=== PATIENT | male | born 1945 ===

== ENCOUNTER 2020-03-07 13:11 | Outpatient (REF) | payer MEDICARE, SELFPAY ==
[2020-03-07 14:15] LABS: MANUAL DIFF FLAG NO
[2020-03-07 14:17] LABS: Basophils Absolute Auto 0.1 X10*3/uL (0.0-0.2); Basophils Percent Auto 0.7 % (0-2); Eosinophils Absolute Auto 0.1 X10*3/uL (0.0-0.4); Eosinophils Percent Auto 0.7 % (0-4); Hematocrit 44.9 % (42-52); Hemoglobin 14.1 g/dl (14.0-18.0); Imm Gran Abs Auto 0.41 X10*3/uL (0.00-0.03); Imm Gran Pct Auto 3.4 % (0.0-0.4); Lymphocytes Absolute Auto 2.3 X10*3/uL (1.2-4.9); Lymphocytes Percent Auto 18.6 % (20-40); Mean Corpuscular HGB Conc 31.4 g/dl (31.0-36.0); Mean Corpuscular Hemoglobin 32.7 pg (27.0-33.0); Mean Corpuscular Volume 104.2 fL (80-98); Monocytes Absolute Auto 1.1 X10*3/uL (0.1-1.2); Monocytes Percent Auto 9.1 % (2-11); Neutrophils Absolute Auto 8.2 X10*3/uL (2.0-8.3); Neutrophils Percent Auto 67.5 % (45-73); Platelet Count 308 X10*3/uL (160-400); Red Blood Count 4.31 X10*6/uL (4.60-5.80); Red Cell Distribution Width 13.4 % (11.0-16.0); White Blood Count 12.2 X10*3/uL (4.8-10.8)
[2020-03-07 15:08] LABS: Thyroid Stimulating Hormone 6.11 mIU/mL (0.32-4.0)
== END 2020-03-07 13:12 | disposition home or self-care (01) ==
LOC: HO.HSH3N 13:11
PROVIDERS: Visit Provider Internal Medicine
DX: D64.9 Anemia, unspecified (principal); I49.9 Cardiac arrhythmia, unspecified
CPT/HCPCS: 36415; 84443; 85025

== ENCOUNTER 2020-05-03 14:52 | Emergency (ER) | payer MEDICARE, SELFPAY ==
[2020-05-03 14:59] VITALS: BP 129/74; PULSE 80; RESP 18; TEMP 37.8; O2SAT 98; BMI 16.7
--- NOTE | 2020-05-03 15:31 | CT_ITS ---
EXAMINATION: CT ABDOMEN AND PELVIS WITHOUT CONTRAST CLINICAL INFORMATION: Abdominal distention. Vomiting. COMPARISON: 02/06/2020 TECHNIQUE: Multidetector volumetric imaging was performed from the superior aspect of the liver through the pubic symphysis. Sagittal and coronal reformatted images were obtained on the technologist's workstation. This CT examination was performed using dose optimization techniques as appropriate, variously including the following: *Automated exposure control *Adjustment of mA and/or kV according to patient size (this includes techniques or standardized protocols for targeted exams where dose is matched to indication/reason for exam; i.e. extremities or head) *Use of iterative reconstruction technique DLP: 515 mGy-cm FINDINGS: LUNG BASES: Bibasilar atelectasis. The visualized cardiac structures are unremarkable. LIVER, GALLBLADDER, AND BILIARY TREE: The liver is normal in size, shape, and attenuation. No focal hepatic lesion or biliary ductal dilatation is present. Multiple stones are seen layering in the gallbladder lumen. No wall thickening or pericholecystic fluid. PANCREAS: Unremarkable. SPLEEN: Unremarkable. ADRENAL GLANDS: Unremarkable. KIDNEYS AND URETERS: The kidneys are normal in size, shape, and attenuation. No hydronephrosis or hydroureter. No right-sided calculi. There are multiple left renal calculi identified. The largest measures 0.3 cm at the upper pole, 6 cm from the posterior axillary line. There are an additional upper pole calculus and a separate midpole calculus noted. BLADDER: Partially distended. Small calcifications are seen dependently which may represent small calculi. Mild bladder wall thickening. GASTROINTESTINAL TRACT: The stomach is displaced posteriorly. This is distended with gas and fluid. No wall thickening. The small bowel is severely dilated in the midabdomen. The duodenum and proximal jejunum are decompressed with gradual dilatation beginning. The terminal ileum is also decompressed, with transition to decompressed small bowel seen in the right lower quadrant. This is similar to the prior study. Mild wall thickening of the distal small bowel noted. The colon is similar to prior with scattered gas and stool internally. Normal appendix. No free air. No free fluid. ABDOMINAL WALL: No significant hernia is appreciated. LYMPH NODES: Normal. VASCULAR: Normal caliber aorta with moderate atherosclerotic calcification. PELVIC VISCERA: The prostate and seminal vesicles are unremarkable. OSSEOUS STRUCTURES: No acute or suspicious osseous abnormality. The bones are osteopenic. Degenerative changes throughout the spine. Degenerative changes of both hips. 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 CT/CT abdomen pelvis wo con IMPRESSION: Similar appearance to prior with marked distention of a portion of the mid small bowel. There is transition to decompressed small bowel near the distal ileum. The appearance remains consistent with underlying Crohn's disease. Nonobstructing left renal calculi are noted. Cholelithiasis.
[2020-05-03 16:00] LABS: Basophils Percent Auto 0.3 % (0-2); Eosinophils Percent Auto 0.2 % (0-4); Hematocrit 38.2 % (42-52); Hemoglobin 12.3 g/dl (14.0-18.0); Imm Gran Abs Auto 0.23 X10*3/uL (0.00-0.03); Imm Gran Pct Auto 3.5 % (0.0-0.4); Lymphocytes Absolute Auto 0.5 X10*3/uL (1.2-4.9); Lymphocytes Percent Auto 7.4 % (20-40); MANUAL DIFF FLAG NO; Mean Corpuscular HGB Conc 32.2 g/dl (31.0-36.0); Mean Corpuscular Hemoglobin 32.2 pg (27.0-33.0); Mean Platelet Volume 8.6 fL (9.4-12.4); Monocytes Absolute Auto 0.3 X10*3/uL (0.1-1.2); Monocytes Percent Auto 4.4 % (2-11); Neutrophils Absolute Auto 5.6 X10*3/uL (2.0-8.3); Neutrophils Percent Auto 84.2 % (45-73); Platelet Count 267 X10*3/uL (160-400); Red Blood Count 3.82 X10*6/uL (4.60-5.80); Red Cell Distribution Width 13.5 % (11.0-16.0); SCAN SMEAR FLAG 1; White Blood Count 6.7 X10*3/uL (4.8-10.8)
--- NOTE | 2020-05-03 16:25 | ED_ITS ---
HPI - Abdominal Pain General Chief Complaint: Abdominal Pain Stated Complaint: abd distention, ?constipation Time Seen by Provider: 05/03/20 15:17 Source: EMS Mode of arrival: EMS History of Present Illness HPI narrative: 74-year-old male with a past medical history of cognitive impairment, mental illness, dementia, Crohn's disease, anxiety/depression BIBA from [facility] for noted abdominal distension & intermittent vomiting, with concern for dehydration or bowel obstruction. Recently COVID-19 negative. Patient reports abdominal pain History limited due to cognitive impairment/dementia MD elicited complaint: abdominal pain Related Data Allergies Allergy/AdvReac Type Severity Reaction Status Date / Time sertraline [Zoloft] Allergy Unknown Verified 11/30/19 00:00 lactose [Lactose] AdvReac Intermediate DIARRHEA Unverified 02/16/20 17:16 From Zoloft AdvReac Intermediate SEVERE Uncoded 02/16/20 17:16 DIARRHEA Review of Systems Review of Systems Gastrointestinal: + Vomiting, +Abdominal pain History limited due to cognitive impairment/dementia Yes all other systems are reviewed and are negative Physical Exam Vital Signs: Vital Signs: Last Vital Signs Temp 100.0 F 05/03/20 14:59 Pulse 80 05/03/20 14:59 Resp 18 05/03/20 14:59 BP 129/74 05/03/20 14:59 Pulse Ox 98 05/03/20 14:59 Body Mass Index 16.7 Const: General: cooperative and healthy appearing Limitations: no limitations HENMT: Head: Yes normal to inspection Ears: hearing grossly normal bilaterally General nose exam: Normal external nose present Face and sinus: Yes normal facial exam Eyes: General: appearance normal, both eyes and all related structures EOM: EOMs intact bilaterally Neck: Neck: Yes normal visual inspection Resp: Effort & Inspection: normal respiratory effort Auscultation: clear to auscultation bilaterally and no wheezes Cardio: Rate: regular rate Heart sounds: S1 normal heart sound present and S2 normal heart sound present GI: Other: + distended Inspection: Yes normal to inspection Palpation (GI): Soft to palpation, Tenderness to palpation present (GI) (Diffusely), no guarding and not rigid Skin: Rashes: no rashes Wounds: no wounds Extrem: General: Yes normal to inspection Course Course Course Narrative: -1635--no leukocytosis, H&H at baseline, potassium/magnesium slightly low --1700--ED care transfer to [facility] pending bladder scan, UA, & CT AP. Dispo per results MDM - Abdominal Pain MDM Narrative Medical decision making narrative: 74-year-old male with a past medical history of cognitive impairment, mental illness, dementia, Crohn's disease, anxiety/depression BIBA from [facility] for noted abdominal distension & intermittent vomiting, with concern for dehydration or bowel obstruction. On exam low-grade temp of a 100?, NAD, abdomen distended diffusely tender, no rebound or guarding. Concern for SBO/constipation vs infectious etiology. Low concern for severe sepsis. Rule out metabolic abnormalities Plan: Labs, UA, CT AP, bladder scan, reassess Lab Data Result diagrams: 05/03/20 15:53 05/03/20 15:52 Labs: Lab Results 05/03/20 05/03/20 05/03/20 Range/Units 15:52 15:53 15:53 WBC 6.7 (4.8-10.8) X10*3/uL RBC 3.82 L (4.60-5.80) X10*6/uL Hgb 12.3 L (14.0-18.0) g/dl Hct 38.2 L (42-52) % MCV 100.0 H (80-98) fL MCH 32.2 (27.0-33.0) pg MCHC 32.2 (31.0-36.0) g/dl RDW 13.5 (11.0-16.0) % Plt Count 267 (160-400) X10*3/uL MPV 8.6 L (9.4-12.4) fL Immature Gran % (Auto) 3.5 H (0.0-0.4) % Neut % (Auto) 84.2 H (45-73) % Lymph % (Auto) 7.4 L (20-40) % [place] % (Auto) 4.4 (2-11) % Eos % (Auto) 0.2 (0-4) % Baso % (Auto) 0.3 (0-2) % Lymph # (Auto) 0.5 L (1.2-4.9) X10*3/uL [place] # (Auto) 0.3 (0.1-1.2) X10*3/uL Eos # (Auto) 0.0 (0.0-0.4) X10*3/uL Baso # (Auto) 0.0 (0.0-0.2) X10*3/uL Abs Immat Gran (auto) 0.23 H (0.00-0.03) X10*3/uL Absolute Neuts (auto) 5.6 (2.0-8.3) X10*3/uL Absolute Nucleated RBC 0.000 (0.0-0.012) X10*3/uL Nucleated RBC % (auto) 0.0 (0.0-0.2) /100WBC Hold Blue Top SEE NOTE Sodium 143 (135-145) mmol/L Potassium 3.2 L (3.3-5.1) mmol/l Chloride 100 (96-108) mmol/L Carbon Dioxide 32 H (22-29) mmol/L Anion Gap 14 (12-20) BUN 15 (9-16) mg/dL Creatinine 0.78 (0.5-1.4) mg/dL Estim Creat Clear Calc 66.8 Estimated GFR > 60 Random Glucose 206 H (60-115) mg/dL Calcium 8.4 (8.4-10.2) mg/dL Magnesium 1.5 L (1.6-2.6) mg/dL Total Bilirubin 0.4 (0.0-1.0) mg/dL Direct Bilirubin < 0.2 (0.0-0.5) mg/dL AST 16 (5-37) U/L ALT 10 (0-40) U/L Alkaline Phosphatase 39 (39-117) U/L Total Protein 5.7 L (6.5-8.0) g/dL Albumin 3.7 (3.5-5.0) g/dL Lipase 20 (8-78) U/L [facility] Past Medical History Attestation statement: The following information was validated with the patient. Medical History (Updated 05/03/20 @ 15:02 by Zahra Hall) Anxiety Crohn disease Dementia MDD (major depressive disorder) Osteoarthritis Social History Social History Alcohol intake: never Smoked in Last 30 Days: No Use of substances other than those prescribed or required for medical reasons: No Advance Directives: No Advance Directives Information Provided: No
[2020-05-03 16:28] LABS: Alanine Aminotransferase 10 U/L (0-40); Albumin Level 3.7 g/dL (3.5-5.0); Alkaline Phosphatase 39 U/L (39-117); Anion Gap 14 (12-20); Aspartate Amino Transferase 16 U/L (5-37); Bilirubin Direct < 0.2 mg/dL (0.0-0.5); Bilirubin Total 0.4 mg/dL (0.0-1.0); Blood Urea Nitrogen 15 mg/dL (9-16); Calcium 8.4 mg/dL (8.4-10.2); Carbon Dioxide 32 mmol/L (22-29); Chloride 100 mmol/L (96-108); Creatinine Clr Calc Pharmacy 66.8; Estimated Glomerular Filt Rate > 60; Glucose Random 206 mg/dL (60-115); Lipase 20 U/L (8-78); Magnesium 1.5 mg/dL (1.6-2.6); Potassium 3.2 mmol/l (3.3-5.1); Sodium 143 mmol/L (135-145); Total Protein 5.7 g/dL (6.5-8.0)
[2020-05-03] MEDS: Acetaminophen 325 MG TABLET 650 MG PO (16:58)
[2020-05-03] MEDS: 0.9 % Sodium Chloride 1,000 ML 999 ML IVCONT (16:58)
[2020-05-03 17:11] LABS: Glucose Urine UA 250 MG/DL (NEG); Leukocyte Esterase Urine NEG (NEG); Nitrite Urine NEG (NEG); Urine Blood NEG (NEG); Urine Ketones NEG (NEG); Urine Protein NEG (NEG-TRACE)
[2020-05-03 17:14] LABS: Appearance Urine CLEAR; Color Urine YELLOW
[2020-05-03 18:00] VITALS: BP 122/77; PULSE 95; RESP 18; O2SAT 98
[2020-05-03 19:07] VITALS: BP 143/85; PULSE 82; RESP 18; O2SAT 98
[2020-05-03] MEDS: Simethicone 80 MG TAB.CHEW 160 MG PO (20:16)
--- NOTE | 2020-05-03 20:19 | MHC.PIE ---
Tried to call [facility] for report x 3. IV access removed. pt resting in ED strecher with even, unlabored respirations awaiting EMS ride
[2020-05-03 21:17] VITALS: BP 143/96; O2SAT 98
== END 2020-05-03 21:20 ==
PROVIDERS: Physician Assistant; Emergency Provider Internal Medicine
DX: K50.00 Crohn's disease of small intestine without complications (principal); F03.90 Unspecified dementia, unspecified severity, without behavioral disturbance, psychotic disturbance, mood disturbance, and anxiety; F32.9 Major depressive disorder, single episode, unspecified
CPT/HCPCS: 36415; 51798; 74176; 80048; 80076; 81003; 83690; 83735; 84443; 85025; 96360; 99284

== ENCOUNTER → 2020-05-15 08:50 | Outpatient (BNVA) | payer MEDICARE, SELFPAY | PROVIDERS: PCP Internal Medicine Medical Oncology; Referring Provider Internal Medicine Medical Oncology; Visit Provider Nurse Practitioner | DX: Z13.89 Encounter for screening for other disorder (principal) | CPT/HCPCS: Q3014 ==

== ENCOUNTER 2020-05-16 07:59 | Outpatient (REF) | payer MEDICARE, SELFPAY ==
[2020-05-16 10:01] LABS: C Reactive Protein 0.11 mg/dL (< or = 0.50)
[2020-05-24 00:47] LABS: Calprotectin, Fecal 129 mcg/g
== END 2020-05-16 08:00 | disposition home or self-care (01) ==
LOC: HO.HSH3E 07:59
PROVIDERS: Visit Provider Internal Medicine Medical Oncology
DX: K50.90 Crohn's disease, unspecified, without complications (principal)
CPT/HCPCS: 83993; 86140

== ENCOUNTER → 2020-05-22 08:41 | Outpatient (BNVA) | payer MEDICARE, SELFPAY | PROVIDERS: PCP Internal Medicine Medical Oncology; Visit Provider Nurse Practitioner | DX: Z13.89 Encounter for screening for other disorder (principal) | CPT/HCPCS: 99212 ==

== ENCOUNTER → 2020-05-31 10:33 | Outpatient (BNVA) | payer MEDICARE, SELFPAY | PROVIDERS: PCP Internal Medicine Medical Oncology; Visit Provider Nurse Practitioner | DX: K50.90 Crohn's disease, unspecified, without complications (principal) | CPT/HCPCS: Q3014 ==

== ENCOUNTER 2020-06-04 07:34 | Outpatient (REF) | payer MEDICARE, SELFPAY | END 2020-06-04 07:35 | disposition home or self-care (01) | LOC: HO.HSH3E 07:34 | PROVIDERS: Visit Provider Internal Medicine Medical Oncology | DX: K50.90 Crohn's disease, unspecified, without complications (principal) | CPT/HCPCS: 36415; 81335 ==

== ENCOUNTER → 2020-06-25 14:32 | Outpatient (BNVA) | payer MEDICARE, SELFPAY | PROVIDERS: PCP Internal Medicine Medical Oncology; Visit Provider Nurse Practitioner | DX: K50.90 Crohn's disease, unspecified, without complications (principal); R14.0 Abdominal distension (gaseous) | CPT/HCPCS: Q3014 ==

== ENCOUNTER 2020-09-10 06:11 | Outpatient (REF) | payer MEDICARE, SELFPAY ==
[2020-09-10 08:39] LABS: Hemoglobin 12.2 g/dl (14.0-18.0); Mean Corpuscular HGB Conc 32.1 g/dl (31.0-36.0); Mean Corpuscular Hemoglobin 33.3 pg (27.0-33.0); Mean Corpuscular Volume 103.8 fL (80-98); Mean Platelet Volume 9.3 fL (9.4-12.4); Platelet Count 203 X10*3/uL (160-400); Red Blood Count 3.66 X10*6/uL (4.60-5.80); Red Cell Distribution Width 13.8 % (11.0-16.0)
[2020-09-10 09:05] LABS: Band Neutrophils Percent 3 % (3-5); Lymphocytes Absolute Manual 1.7 X10*3/uL (0.6-4.8); Lymphocytes Percent Manual 19 % (20-40); Metamyelocytes Absolute 0.2 X10*3/uL; Metamyelocytes Percent 2 %; Monocytes Absolute Manual 0.3 X10*3/uL (0.0-1.2); Monocytes Percent Manual 3 % (2-11); Myelocytes Absolute 0.2 X10*/uL; Myelocytes Percent 2 %; Neutrophils Absolute Manual 6.7 X10*3/uL (2.2-7.9); Neutrophils Percent Manual 71 % (45-73)
[2020-09-10 09:06] LABS: Acanthocytes 1+ (0-2) /OIF; Macrocytosis 1+ (5-14) /OIF; RBC Morphology NOTED
[2020-09-10 09:07] LABS: Platelet Estimate NORMAL (NORMAL); Platelet Morphology Comment NORMAL
[2020-09-10 09:12] LABS: Thyroid Stimulating Hormone 5.58 uIU/mL (0.32-4.0)
== END 2020-09-10 06:12 | disposition home or self-care (01) ==
LOC: HO.HSH2E 06:11
PROVIDERS: Visit Provider Internal Medicine Endocrinology, Diabetes & Metabolism
DX: K50.00 Crohn's disease of small intestine without complications (principal)
CPT/HCPCS: 36415; 84443; 85007; 85027

== ENCOUNTER 2020-10-07 10:01 | Emergency (ER) | payer OTHER, MEDICARE, SELFPAY ==
--- NOTE | ~2020-10-07 | CT_ITS ---
EXAMINATION: CT ABDOMEN AND PELVIS WITH CONTRAST CLINICAL INFORMATION: Constipation. Question bowel obstruction. COMPARISON: CT of the abdomen and pelvis without contrast dated May 03, 2020 and 02/06/2020. TECHNIQUE: Multidetector volumetric images were obtained from the superior aspect of the liver through the pubic symphysis following administration 85 mL of Omnipaque 350 intravenous contrast. Sagittal and coronal reformatted images were obtained on the technologist's workstation. Oral contrast: No This CT examination was performed using dose optimization techniques as appropriate, variously including the following: *Automated exposure control *Adjustment of mA and/or kV according to patient size (this includes techniques or standardized protocols for targeted exams where dose is matched to indication/reason for exam; i.e. extremities or head) *Use of iterative reconstruction technique DLP: 434 mGy-cm FINDINGS: LUNG BASES: The visualized lung bases are unremarkable. The heart normal in size. No pericardial effusion or thickening. LIVER, GALLBLADDER, AND BILIARY TREE: The liver is normal in size, shape, and attenuation. No focal hepatic lesion or biliary ductal dilatation is present. The gallbladder contains multiple small gallstones. No gallbladder wall thickening, or obvious pericholecystic inflammatory changes. PANCREAS: Normal. SPLEEN: Normal. ADRENAL GLANDS: Normal. KIDNEYS AND URETERS: The kidneys are normal in size, shape, and attenuation. No hydronephrosis or hydroureter. Nonobstructive left upper pole renal calculi. No perinephric stranding. BLADDER: Partially decompressed. Wall thickening of the urinary bladder reflecting partially decompressed status versus cystitis. Clinical correlation recommended. Punctate calculus in the dependently layers in the left posterior urinary bladder (3:86). GASTROINTESTINAL TRACT: Stomach is nondistended with mild posterior displacement similar to prior examination. Decompressed left upper abdomen small bowel loops and decompressed terminal ileum is noted. Appendix is visualized (3:68) and normal in appearance. There is similar appearance and degree of diffuse small bowel dilatation. The rectum is normal in caliber. Sigmoid, left, transverse, and right colon are normal in caliber. No evidence of bowel pneumatosis. PERITONEUM/RETROPERITONEUM AND MESENTERY: No intraperitoneal free air or fluid. ABDOMINAL WALL: No significant hernia is appreciated. LYMPH NODES: No pathologically enlarged lymph nodes. VASCULAR: Mild to moderate aortoiliac atherosclerotic calcified and noncalcified disease. PELVIC VISCERA: Prostate seminal vesicles are normal in caliber. OSSEOUS STRUCTURES: Osteopenia. Bilateral hip AVN. No acute fracture. Degenerative changes of the thoracolumbar spine are unchanged. CT/CT abdomen pelvis w con IMPRESSION: There is unchanged appearance and degree of diffusely distended small bowel which transitions to decompressed small bowel near the distal ileum similar to prior comparison examinations. Stomach and large bowel are normal in caliber. No evidence evidence of small or large bowel pneumatosis. No intraperitoneal free air or free fluid. Normal appendix. Wall thickening of the urinary bladder reflect sequelae of partially decompressed status versus cystitis. Clinical correlation recommended. Tiny calculus in the urinary bladder. Osteopenia. Bilateral avascular necrosis of the hips.
[2020-10-07 10:09] VITALS: BP 127/74; BP 163/81; PULSE 85; PULSE 97; RESP 16; TEMP 36.9; O2SAT 98; BMI 22.9
--- NOTE | 2020-10-07 10:37 | PC.NURSE ---
Pt presents from [facility] for abd distention and no bowel movement x 24 hours. Pt able to answer simple questions. Denies pain. Abd is distened and skin taught, Hyperactive bowel sounds right upper and lower and right lower, diminished to ll abd quad.
--- NOTE | 2020-10-07 10:52 | ED_ITS ---
HPI - Abdominal Pain General Chief Complaint: Abdominal Pain Stated Complaint: Abdominal Distention Time Seen by Provider: 10/07/20 10:31 Source: patient Mode of arrival: ambulatory Limitations: no limitations History of Present Illness HPI narrative: Patient is sent from [facility] due to constipation for 24 hours. Phyllis vicente usually has 3 bowel movements per day, but did not have any for the past 24 hours and increase abdominal distention. Patient presents not any distress. Patient has dementia but states constipated. He also states abdominal distension. Patient denies any abdominal pain Related Data Home Medications Medication Instructions Recorded Confirmed metoclopramide HCl 10 mg tablet 10 mg PO .TIDAC tab 05/22/20 05/22/20 Previous Rx's Medication Instructions Recorded polyethylene glycol 3350 [Miralax] 17 g PO DAILY PRN #238 g 10/07/20 Allergies Allergy/AdvReac Type Severity Reaction Status Date / Time sertraline [Zoloft] Allergy Unknown Unknown Verified 06/25/20 14:32 lactose [Lactose] AdvReac Intermediate DIARRHEA Verified 06/25/20 14:32 Review of Systems Review of Systems Yes all other systems are reviewed and are negative Constitutional: Reports as per HPI and Reports no additional constitutional complaints Eyes: Reports as per HPI and Reports no additional eye complaints Reports system reviewed and no additional complaints, except as documented and Reports as per HPI Cardiovascular: Reports as per HPI and Reports no additional cardiovascular complaints Respiratory: Reports as per HPI and Reports no additional respiratory complaints Gastrointestinal: Reports as per HPI, Reports no additional gastrointestinal complaints and Reports constipation Comments: Abdominal distension Genitourinary: Reports no additional male genitourinary complaints and Reports as per HPI Reports system reviewed and no additional complaints, except as documented and Reports as per HPI Physical Exam Vital Signs: Vital Signs: Last Vital Signs Temp 98.4 F 10/07/20 15:57 Pulse 88 10/07/20 15:57 Resp 15 10/07/20 15:57 BP 157/70 H 10/07/20 15:57 Pulse Ox 97 10/07/20 15:57 Body Mass Index 22.9 Const: Other: Dementia. General: cooperative, healthy appearing, comfortable, no acute distress, well developed and alert Orientation/consciousness: patient oriented x3 HENMT: Head: Yes normal to inspection, Yes No palpable skull fracture present, Yes normocephalic, Yes atraumatic and No abrasion Eyes: General: appearance normal, both eyes and all related structures Neck: Neck: Yes normal visual inspection, Yes full ROM, Yes no lymphadenopathy, Yes no meningeal signs, Yes trachea midline, Yes supple and No tender Chest: Chest palpation & inspection: normal inspection of the chest and normal palpation of entire chest wall Resp: Effort & Inspection: normal respiratory effort and able to speak in complete sentences Cardio: Jugular venous distension: no JVD Heart sounds: S1 normal heart sound present and S2 normal heart sound present GI: Other: Positive for hyper active bowel sounds Inspection: Yes normal to inspection, No abdominal wall ecchymosis and Yes distended Palpation (GI): not soft, not firm, nontender, no guarding and not rigid : General: No CVA tenderness and Yes no CVA tenderness Back/Spine/Pelvis: Back: no CVA tenderness, No CVA tenderness and No back tenderness Skin: General skin exam: no rashes or lesions noted and elasticity normal Neuro: General: patient oriented x3, no meningeal signs and CN's II-XI intact bilaterally Cranial nerves: Yes CN's II-XII intact bilaterally Extrem: General: Yes normal to inspection and Yes full ROM Psych: Appearance: grossly normal, well kempt and not disheveled Course Course Course Narrative: Patient will have basic labs and sent for abdominal CT scan to rule out obstruction. Patient not in distress. Will also do bladder scan and UA Reevaluation(s) Reevaluation #1: Patient not in any distress. Patient had a bowel movement while waiting to have CT scan done. UA negative for UTI. Labs at baseline. Reevaluation #2: Patient's 2nd bowel movement. Waiting for CT scan results. Once again patient never had pain during the ED visit. Patient was sent to the ED for abdominal distension and no bowel movements for 24 hours. Reevaluation #3: CT scan does not show any medical/surgical emergent etiology. Negative for any bowel obstruction. Patient not in any distress will be discharged. CT scan does shows urinary bladder calculus. MDM - Abdominal Pain MDM Narrative Medical decision making narrative: Constipation resolved. Lab Data Result diagrams: 10/07/20 11:10 10/07/20 11:57 Labs: Lab Results 10/07/20 10/07/20 10/07/20 Range/Units 11:09 11:10 11:10 WBC 10.5 (4.8-10.8) X10*3/uL RBC 3.97 L (4.60-5.80) X10*6/uL Hgb 13.3 L (14.0-18.0) g/dl Hct 41.2 L (42-52) % MCV 103.8 H (80-98) fL MCH 33.5 H (27.0-33.0) pg MCHC 32.3 (31.0-36.0) g/dl RDW 13.2 (11.0-16.0) % Plt Count 251 (160-400) X10*3/uL MPV 8.7 L (9.4-12.4) fL Immature Gran % (Auto) 4.5 H (0.0-0.4) % Neut % (Auto) 70.4 (45-73) % Lymph % (Auto) 14.4 L (20-40) % [place] % (Auto) 9.0 (2-11) % Eos % (Auto) 1.1 (0-4) % Baso % (Auto) 0.6 (0-2) % Lymph # (Auto) 1.5 (1.2-4.9) X10*3/uL [place] # (Auto) 1.0 (0.1-1.2) X10*3/uL Eos # (Auto) 0.1 (0.0-0.4) X10*3/uL Baso # (Auto) 0.1 (0.0-0.2) X10*3/uL Abs Immat Gran (auto) 0.47 H (0.00-0.03) X10*3/uL Absolute Neuts (auto) 7.4 (2.0-8.3) X10*3/uL Absolute Nucleated RBC 0.000 (0.0-0.012) X10*3/uL Nucleated RBC % (auto) 0.0 (0.0-0.2) /100WBC PT 12.3 (10.8-13.0) SEC INR 1.0 (0.9-1.1) APTT 35.2 (24.1-38.0) SEC Sodium (135-145) mmol/L Potassium (3.3-5.1) mmol/L Chloride (96-108) mmol/L Carbon Dioxide (22-29) mmol/L Anion Gap (12-20) BUN (9-16) mg/dL Creatinine (0.5-1.4) mg/dL Estim Creat Clear Calc Estimated GFR Random Glucose (60-115) mg/dL Calcium (8.4-10.2) mg/dL Total Bilirubin (0.0-1.0) mg/dL Direct Bilirubin (0.0-0.5) mg/dL AST (5-37) U/L ALT (0-40) U/L Alkaline Phosphatase (39-117) U/L Total Protein (6.5-8.0) g/dL Albumin (3.5-5.0) g/dL Lipase (8-78) U/L Urine Color YELLOW Urine Appearance CLEAR Urine pH 5.5 (5.0-8.0) Ur Specific Jones 1.010 (1.005-1.025) Urine Protein NEG (NEG-TRACE) MG/DL Urine Glucose (UA) NEG (NEG) MG/DL Urine Ketones NEG (NEG) MG/DL Urine Blood TRACE (NEG) Urine Nitrite NEG (NEG) Ur Leukocyte Esterase NEG (NEG) Urine RBC 1-4 (0) /HPF Urine WBC 0 (0-4) /HPF Ur Squamous Epith Cells 1+ /LPF Calcium Oxalate Crystal 3+ /LPF Urine Bacteria NONE /LPF Urine Mucus 2+ /LPF 10/07/20 Range/Units 11:57 WBC (4.8-10.8) X10*3/uL RBC (4.60-5.80) X10*6/uL Hgb (14.0-18.0) g/dl Hct (42-52) % MCV (80-98) fL MCH (27.0-33.0) pg MCHC (31.0-36.0) g/dl RDW (11.0-16.0) % Plt Count (160-400) X10*3/uL MPV (9.4-12.4) fL Immature Gran % (Auto) (0.0-0.4) % Neut % (Auto) (45-73) % Lymph % (Auto) (20-40) % [place] % (Auto) (2-11) % Eos % (Auto) (0-4) % Baso % (Auto) (0-2) % Lymph # (Auto) (1.2-4.9) X10*3/uL [place] # (Auto) (0.1-1.2) X10*3/uL Eos # (Auto) (0.0-0.4) X10*3/uL Baso # (Auto) (0.0-0.2) X10*3/uL Abs Immat Gran (auto) (0.00-0.03) X10*3/uL Absolute Neuts (auto) (2.0-8.3) X10*3/uL Absolute Nucleated RBC (0.0-0.012) X10*3/uL Nucleated RBC % (auto) (0.0-0.2) /100WBC PT (10.8-13.0) SEC INR (0.9-1.1) APTT (24.1-38.0) SEC Sodium 143 (135-145) mmol/L Potassium 3.6 (3.3-5.1) mmol/L Chloride 103 (96-108) mmol/L Carbon Dioxide 33 H (22-29) mmol/L Anion Gap 11 L (12-20) BUN 13 (9-16) mg/dL Creatinine 0.72 (0.5-1.4) mg/dL Estim Creat Clear Calc 87.0 Estimated GFR > 60 Random Glucose 97 D (60-115) mg/dL Calcium 8.8 (8.4-10.2) mg/dL Total Bilirubin 0.5 (0.0-1.0) mg/dL Direct Bilirubin 0.2 (0.0-0.5) mg/dL AST 17 (5-37) U/L ALT 16 (0-40) U/L Alkaline Phosphatase 35 L (39-117) U/L Total Protein 5.7 L (6.5-8.0) g/dL Albumin 3.8 (3.5-5.0) g/dL Lipase 15 (8-78) U/L Urine Color Urine Appearance Urine pH (5.0-8.0) Ur Specific Jones (1.005-1.025) Urine Protein (NEG-TRACE) MG/DL Urine Glucose (UA) (NEG) MG/DL Urine Ketones (NEG) MG/DL Urine Blood (NEG) Urine Nitrite (NEG) Ur Leukocyte Esterase (NEG) Urine RBC (0) /HPF Urine WBC (0-4) /HPF Ur Squamous Epith Cells /LPF Calcium Oxalate Crystal /LPF Urine Bacteria /LPF Urine Mucus /LPF Discharge Plan Discharge Clinical Impression: Constipation, Bladder calculi Patient Disposition: Home, Self-Care Instructions: Constipation (ED) Additional Instructions: Return to the ED immediately for abdominal pain, nausea, vomiting, fevers, chills, dysuria, hematuria, flank pain, or any other concerning symptoms. Constipation resolved in the ED. Patient had 2 large bowel movements during the ED. Abdominal CT scan does not show any medical/surgical emergent etiology. Abdominal CT scan does not show bowel obstruction. Labs came back at baseline. Urine negative for UTI. Prescriptions: New polyethylene glycol 3350 [Miralax] 17 gram/dose powder 17 g PO DAILY PRN (Reason: constipation) Qty: 238 RF: 0 No Action metoclopramide HCl [Reglan] 10 mg tablet 10 mg PO .TIDAC RF: 0 Print Language: [place] [facility] Past Medical History Medical History (Updated 10/07/20 @ 15:43 by ALISHA Doyle) Anxiety Crohn disease Dementia MDD (major depressive disorder) Osteoarthritis Surgical History (Updated 05/15/20 @ 08:45 by SHEN Lopez) History of tonsillectomy Hx of colonoscopy Family History Family History (Updated 05/15/20 @ 08:52 by SHEN Lopez) Father Myocardial infarction Mother Cancer of kidney Social History Social History (Updated 05/31/20 @ 10:34 by SHEN Lopez) Alcohol intake: never Smoking Status: Unknown if ever smoked Use of substances other than those prescribed or required for medical reasons: No Advance Directives: No Advance Directives Information Provided: No
[2020-10-07 11:15] LABS: MANUAL DIFF FLAG NO
[2020-10-07 11:24] LABS: Basophils Absolute Auto 0.1 X10*3/uL (0.0-0.2); Basophils Percent Auto 0.6 % (0-2); Eosinophils Absolute Auto 0.1 X10*3/uL (0.0-0.4); Eosinophils Percent Auto 1.1 % (0-4); Hematocrit 41.2 % (42-52); Hemoglobin 13.3 g/dl (14.0-18.0); Imm Gran Abs Auto 0.47 X10*3/uL (0.00-0.03); Imm Gran Pct Auto 4.5 % (0.0-0.4); Lymphocytes Absolute Auto 1.5 X10*3/uL (1.2-4.9); Lymphocytes Percent Auto 14.4 % (20-40); Mean Corpuscular HGB Conc 32.3 g/dl (31.0-36.0); Mean Corpuscular Hemoglobin 33.5 pg (27.0-33.0); Mean Corpuscular Volume 103.8 fL (80-98); Mean Platelet Volume 8.7 fL (9.4-12.4); Neutrophils Absolute Auto 7.4 X10*3/uL (2.0-8.3); Neutrophils Percent Auto 70.4 % (45-73); Platelet Count 251 X10*3/uL (160-400); Red Blood Count 3.97 X10*6/uL (4.60-5.80); Red Cell Distribution Width 13.2 % (11.0-16.0); White Blood Count 10.5 X10*3/uL (4.8-10.8)
[2020-10-07 11:25] LABS: Appearance Urine CLEAR; Color Urine YELLOW; Glucose Urine UA NEG (NEG); Leukocyte Esterase Urine NEG (NEG); Nitrite Urine NEG (NEG); PH 5.5 (5.0-8.0); Urine Blood TRACE (NEG); Urine Ketones NEG (NEG); Urine Protein NEG (NEG-TRACE)
[2020-10-07 11:30] LABS: Prothrombin Time 12.3 SEC (10.8-13.0)
[2020-10-07 11:33] LABS: Partial Thromboplastin Time 35.2 SEC (24.1-38.0)
[2020-10-07 11:59] LABS: Calcium Oxalate Crystals Urine 3+ /LPF; Mucus Urine 2+ /LPF; Squamous Epithelial Cell Urine 1+ /LPF; WBC Urine 0 /HPF (0-4)
[2020-10-07 12:31] LABS: Alanine Aminotransferase 16 U/L (0-40); Albumin Level 3.8 g/dL (3.5-5.0); Alkaline Phosphatase 35 U/L (39-117); Anion Gap 11 (12-20); Aspartate Amino Transferase 17 U/L (5-37); Bilirubin Direct 0.2 mg/dL (0.0-0.5); Bilirubin Total 0.5 mg/dL (0.0-1.0); Blood Urea Nitrogen 13 mg/dL (9-16); Calcium 8.8 mg/dL (8.4-10.2); Carbon Dioxide 33 mmol/L (22-29); Chloride 103 mmol/L (96-108); Estimated Glomerular Filt Rate > 60; Glucose Random 97 mg/dL (60-115); Lipase 15 U/L (8-78); Potassium 3.6 mmol/L (3.3-5.1); Sodium 143 mmol/L (135-145); Total Protein 5.7 g/dL (6.5-8.0)
[2020-10-07 12:47] VITALS: BP 138/78; PULSE 116; RESP 20; TEMP 37; O2SAT 94
--- NOTE | 2020-10-07 12:51 | PC.NURSE ---
PT HAD LARGE BM, LOOSE, LIGHT BROWN, NO BLOOD NOTED IN STOOL.
--- NOTE | 2020-10-07 13:04 | PC.NURSE ---
TECHNICAL DIFFICULTIES & DELAY TODAY WITH CT SCAN, PT TO BE TRANSPORTED TO RADIOLOGY FOR SCAN
[2020-10-07] MEDS: 0.9 % Sodium Chloride 1,000 ML 999 ML IV (14:15)
[2020-10-07] MEDS: iohexoL 350 MG/ML 100 ML INFUS..BTL IV (15:06)
[2020-10-07 15:57] VITALS: BP 157/70; PULSE 88; RESP 15; TEMP 36.9; O2SAT 97
--- NOTE | 2020-10-07 16:13 | PC.NURSE ---
REPORT GIVEN TO [facility] RN, AWAITING TRANSPORTATION
== END 2020-10-07 16:41 | disposition home or self-care (01) ==
PROVIDERS: Physician Assistant; Emergency Provider Emergency Medicine Emergency Medical Services; PCP Internal Medicine Medical Oncology
DX: N21.0 Calculus in bladder (principal); K59.00 Constipation, unspecified; R14.0 Abdominal distension (gaseous)
CPT/HCPCS: 36415; 51702; 51798; 74177; 80053; 80076; 81001; 82248; 83690; 85025; 85610; 85730; 96360; 99285; Q9967

== ENCOUNTER 2021-02-12 15:35 | Outpatient (REF) | payer MEDICARE, SELFPAY | END 2021-02-12 15:36 | disposition home or self-care (01) | LOC: HO.HSH2E 15:35 | PROVIDERS: Visit Provider Internal Medicine Medical Oncology | DX: H10.31 Unspecified acute conjunctivitis, right eye (principal) | CPT/HCPCS: 87070; 87205 ==

== ENCOUNTER 2021-05-21 09:57 | Outpatient (REF) | payer MEDICARE, SELFPAY | END 2021-05-21 09:58 | disposition home or self-care (01) | LOC: HO.HSH2E 09:57 | PROVIDERS: PCP Internal Medicine Medical Oncology; Visit Provider Internal Medicine Medical Oncology | DX: L08.9 Local infection of the skin and subcutaneous tissue, unspecified (principal) | CPT/HCPCS: 87071; 87205 ==

== ENCOUNTER 2021-07-16 05:57 | Outpatient (REF) | payer MEDICARE, SELFPAY ==
[2021-07-16 11:53] LABS: Phenytoin Dilantin 4.7 ug/mL (10.0-20.0)
== END 2021-07-16 05:58 | disposition home or self-care (01) ==
LOC: HO.HSH2E 05:57
PROVIDERS: Visit Provider Internal Medicine Medical Oncology
DX: R56.9 Unspecified convulsions (principal)
CPT/HCPCS: 36415; 80185

== ENCOUNTER 2021-07-23 06:04 | Outpatient (REF) | payer MEDICARE, SELFPAY ==
[2021-07-23 08:32] LABS: Phenytoin Dilantin 13.5 ug/mL (10.0-20.0)
== END 2021-07-23 06:05 | disposition home or self-care (01) ==
LOC: HO.HSH2E 06:04
PROVIDERS: Visit Provider Internal Medicine Medical Oncology
DX: Z79.899 Other long term (current) drug therapy (principal)
CPT/HCPCS: 36415; 80185

== ENCOUNTER 2021-07-27 12:58 | Outpatient (REF) | payer MEDICARE, SELFPAY ==
[2021-07-27 13:58] LABS: Basophils Absolute Auto 0.1 X10*3/uL (0.0-0.2); Basophils Percent Auto 1.2 % (0-2); Eosinophils Absolute Auto 0.3 X10*3/uL (0.0-0.4); Eosinophils Percent Auto 6.7 % (0-4); Hematocrit 32.4 % (42.0-52.0); Hemoglobin 10.1 g/dl (14.0-18.0); Imm Gran Abs Auto 0.06 X10*3/uL (0.00-0.03); Imm Gran Pct Auto 1.4 % (0.0-0.4); Lymphocytes Percent Auto 24.5 % (20-40); MANUAL DIFF FLAG SCAN; Mean Corpuscular HGB Conc 31.2 g/dl (31.0-36.0); Mean Corpuscular Volume 96.1 fL (80.0-98.0); Monocytes Absolute Auto 0.9 X10*3/uL (0.1-1.2); Monocytes Percent Auto 20.2 % (2-11); Neutrophils Absolute Auto 1.9 x10*3/uL (2.0-8.3); Platelet Count 237 X10*3/uL (160-400); Red Blood Count 3.37 X10*6/uL (4.60-5.80); Red Cell Distribution Width 15.9 % (11.0-16.0); SCAN SMEAR FLAG 1; White Blood Count 4.2 X10*3/uL (4.8-10.8)
[2021-07-27 14:15] LABS: Alanine Aminotransferase 12 U/L (0-40); Albumin Level 3.3 g/dL (3.5-5.0); Alkaline Phosphatase 80 U/L (39-117); Anion Gap 12 (12-20); Aspartate Amino Transferase 23 U/L (5-37); Bilirubin Direct < 0.2 mg/dL (0.0-0.5); Bilirubin Total 0.3 mg/dL (0.0-1.0); Blood Urea Nitrogen 11 mg/dL (9-16); Calcium 8.5 mg/dL (8.4-10.2); Carbon Dioxide 25 mmol/L (22-29); Chloride 107 mmol/L (96-108); Estimated Glomerular Filt Rate > 60; Glucose Random 118 mg/dL (60-115); Magnesium 1.6 mg/dL (1.6-2.6); Potassium 3.9 mmol/L (3.3-5.1); Sodium 140 mmol/L (135-145); Total Protein 5.1 g/dL (6.5-8.0)
[2021-07-27 14:19] LABS: SLIDE REVIEW VERIFIED
[2021-07-27 14:48] LABS: Phenytoin Dilantin 17.7 ug/mL (10.0-20.0)
[2021-07-29 03:53] LABS: Vitamin B12 344 pg/mL (200-900)
[2021-07-31 14:41] LABS: Vitamin B1 14 nmol/L (8-30)
== END 2021-07-27 12:59 | disposition home or self-care (01) ==
LOC: HO.HSH2E 12:58
PROVIDERS: Visit Provider Nurse Practitioner Acute Care
DX: F41.9 Anxiety disorder, unspecified (principal); R25.9 Unspecified abnormal involuntary movements
CPT/HCPCS: 36415; 80053; 80185; 82248; 82607; 83735; 84425; 85025

== ENCOUNTER 2021-07-31 05:41 | Outpatient (REF) | payer MEDICARE, SELFPAY ==
[2021-07-31 07:38] LABS: Immature Retic Fraction 8.6 % (2.3-13.4); Retic HGB Equivalent 32.2 pg (30.0-35.0); Reticulocyte Percent 3.7 % (0.5-1.8); Reticulocytes Absolute 0.116 X10*6/uL (0.026-0.095)
[2021-07-31 07:55] LABS: Iron 54 mcg/dL (45-160); Magnesium 1.6 mg/dL (1.6-2.6); Percent Iron Saturation 26 % (15-50); Total Iron Binding Capacity 207 mcg/dL (228-428); Unsaturated Iron Binding 153 ug/dL
[2021-07-31 08:16] LABS: Ferritin 45 ng/mL (20-250); Free T4 (Free Thyroxine) 0.68 ng/dL (0.71-1.85); Thyroid Stimulating Hormone 9.93 uIU/mL (0.32-4.0); Vitamin D 25-OH Total 34.6 ng/mL (>30)
[2021-07-31 08:34] LABS: Vitamin B12 326 pg/mL (200-900)
== END 2021-07-31 05:42 | disposition home or self-care (01) ==
LOC: HO.HSH2E 05:41
PROVIDERS: Visit Provider Internal Medicine Medical Oncology
DX: K50.90 Crohn's disease, unspecified, without complications (principal)
CPT/HCPCS: 36415; 82306; 82607; 82728; 82746; 83540; 83735; 84439; 84443; 85045

== ENCOUNTER 2021-08-21 06:37 | Outpatient (REF) | payer MEDICARE, SELFPAY ==
[2021-08-21 08:19] LABS: Free T4 (Free Thyroxine) 0.84 ng/dL (0.71-1.85)
== END 2021-08-21 06:38 | disposition home or self-care (01) ==
LOC: HO.HSH2E 06:37
PROVIDERS: Visit Provider Internal Medicine Medical Oncology
DX: E03.9 Hypothyroidism, unspecified (principal)
CPT/HCPCS: 36415; 84439; 84443

== ENCOUNTER 2021-08-28 13:02 | Outpatient (REF) | payer MEDICARE, SELFPAY ==
--- NOTE | ~2021-08-28 | CT_ITS ---
EXAMINATION: CT HEAD WITHOUT CONTRAST CLINICAL INFORMATION: 76-year-old with unspecified convulsions. COMPARISON: 01/18/2019 CT brain. TECHNIQUE: Contiguous axial imaging was performed from the skull base to vertex without intravenous administration of contrast. This CT examination was performed using dose optimization techniques as appropriate, variously including the following: *Automated exposure control *Adjustment of mA and/or kV according to patient size (this includes techniques or standardized protocols for targeted exams where dose is matched to indication/reason for exam; i.e. extremities or head) *Use of iterative reconstruction technique DLP: 847 mGy-cm FINDINGS: BRAIN VOLUME: Redemonstrated is [id number] generalized diffuse nonspecific supratentorial brain parenchymal volume loss, similar in appearance to the previous study. Somewhat disproportionate midbrain volume loss is suspected, unchanged in appearance. STRUCTURAL: No malformations. BRAIN AND MENINGES: No evidence for intracranial hemorrhage, extra-axial fluid collection, space-occupying process, mass effect or acute territorial infarct. Salomon-white matter differentiation is preserved. Regions of patchy and confluent hypodensity are seen within the subcortical and deeper periventricular white matter of both cerebral hemispheres, similar in appearance to the previous study, consistent with chronic ischemic microangiopathy. There is a small hypodensity in the anterior left putamen, similar to previous exam, likely a remote lacunar infarct. Small remote lacunar infarcts are suspected in the posterior right putamen versus perivascular space, unchanged. Bilateral ICA and left vertebral artery calcifications are noted. VENTRICLES AND SUBARACHNOID SPACES: There is third and lateral ventriculomegaly as well as mild fourth ventriculomegaly, which is grossly unchanged in appearance. This is most likely reflective of volume loss. ORBITAL STRUCTURES: Grossly unremarkable within the limitations of the study. BONY STRUCTURES: Intact. No extracranial hematomas. AIR SPACES: Clear. CT/CT head/brain wo con IMPRESSION: 1. No acute intracranial process. 2. Chronic ischemic microangiopathy in the white matter of both cerebral hemispheres and small remote lacunes in the putamen bilaterally versus perivascular spaces. 3. Generalized diffuse brain parenchymal volume loss, with somewhat disproportionate midbrain volume loss, stable in appearance, with diffuse ventriculomegaly, stable from previous exam.
== END 2021-08-28 13:03 | disposition home or self-care (01) ==
LOC: HO.CT 13:02
PROVIDERS: PCP Internal Medicine Medical Oncology; Visit Provider Psychiatry & Neurology Neurology
DX: R56.9 Unspecified convulsions (principal)
CPT/HCPCS: 70450

== ENCOUNTER 2021-09-04 05:42 | Outpatient (REF) | payer MEDICARE, SELFPAY ==
[2021-09-04 07:54] LABS: Free T4 (Free Thyroxine) 0.95 ng/dL (0.71-1.85)
== END 2021-09-04 05:43 | disposition home or self-care (01) ==
LOC: HO.HSH2E 05:42
PROVIDERS: Visit Provider Internal Medicine Medical Oncology
DX: R94.6 Abnormal results of thyroid function studies (principal)
CPT/HCPCS: 36415; 84439; 84443

== ENCOUNTER 2021-09-18 06:13 | Outpatient (REF) | payer MEDICARE, SELFPAY ==
[2021-09-18 08:14] LABS: Free T4 (Free Thyroxine) 1.02 ng/dL (0.71-1.85); Thyroid Stimulating Hormone 2.65 uIU/mL (0.32-4.0)
== END 2021-09-18 06:14 | disposition home or self-care (01) ==
LOC: HO.HSH2E 06:13
PROVIDERS: Visit Provider Nurse Practitioner Acute Care
DX: F03.90 Unspecified dementia, unspecified severity, without behavioral disturbance, psychotic disturbance, mood disturbance, and anxiety (principal); K50.90 Crohn's disease, unspecified, without complications
CPT/HCPCS: 36415; 84439; 84443

== ENCOUNTER 2022-03-07 13:16 | Outpatient (REF) | payer MEDICARE, SELFPAY ==
[2022-03-07 13:24] LABS: MANUAL DIFF FLAG NO
[2022-03-07 13:33] LABS: Basophils Absolute Auto 0.1 X10*3/uL (0.0-0.2); Basophils Percent Auto 1.2 % (0-2); Eosinophils Absolute Auto 0.2 X10*3/uL (0.0-0.4); Eosinophils Percent Auto 3.1 % (0-4); Hematocrit 36.6 % (42.0-52.0); Hemoglobin 11.6 g/dl (14.0-18.0); Imm Gran Abs Auto 0.05 X10*3/uL (0.00-0.03); Imm Gran Pct Auto 0.7 % (0.0-0.4); Lymphocytes Absolute Auto 2.1 X10*3/uL (1.2-4.9); Lymphocytes Percent Auto 27.7 % (20-40); Mean Corpuscular HGB Conc 31.7 g/dl (31.0-36.0); Mean Corpuscular Hemoglobin 30.6 pg (27.0-33.0); Mean Corpuscular Volume 96.6 fL (80.0-98.0); Mean Platelet Volume 9.2 fL (9.4-12.4); Monocytes Absolute Auto 0.9 X10*3/uL (0.1-1.2); Monocytes Percent Auto 12.5 % (2-11); Neutrophils Absolute Auto 4.1 x10*3/uL (2.0-8.3); Neutrophils Percent Auto 54.8 % (45-73); Platelet Count 286 X10*3/uL (160-400); Red Blood Count 3.79 X10*6/uL (4.60-5.80); Red Cell Distribution Width 14.7 % (11.0-16.0); White Blood Count 7.4 X10*3/uL (4.8-10.8)
[2022-03-07 13:49] LABS: Alanine Aminotransferase 6 U/L (0-40); Albumin Level 3.8 g/dL (3.5-5.0); Alkaline Phosphatase 73 U/L (39-117); Anion Gap 16 (12-20); Aspartate Amino Transferase 14 U/L (5-37); Bilirubin Total 0.2 mg/dL (0.0-1.0); Blood Urea Nitrogen 13 mg/dL (9-16); Calcium 8.6 mg/dL (8.4-10.2); Carbon Dioxide 22 mmol/L (22-29); Chloride 109 mmol/L (96-108); Estimated Glomerular Filt Rate > 60; Glucose Random 123 mg/dL (60-115); Potassium 4.1 mmol/L (3.3-5.1); Sodium 143 mmol/L (135-145); Total Protein 5.8 g/dL (6.5-8.0)
[2022-03-07 14:08] LABS: Erythrocyte Sedimentation Rate 16 MM/HR (0-15)
[2022-03-07 14:10] LABS: Free T4 (Free Thyroxine) 1.08 ng/dL (0.71-1.85); Prostate Specific Antigen 1.43 ng/mL (<0.05-4.0); Thyroid Stimulating Hormone 5.44 uIU/mL (0.32-4.0); Vitamin D 25-OH Total 41.5 ng/mL (>30)
[2022-03-07 15:08] LABS: Folate > 20.0 ng/mL (> or = 4.0); Vitamin B12 288 pg/mL (200-900)
== END 2022-03-07 13:17 | disposition home or self-care (01) ==
LOC: HO.HSH3E 13:16
PROVIDERS: Visit Provider Internal Medicine Medical Oncology
DX: Z12.5 Encounter for screening for malignant neoplasm of prostate (principal); E55.9 Vitamin D deficiency, unspecified; N40.0 Benign prostatic hyperplasia without lower urinary tract symptoms; K50.90 Crohn's disease, unspecified, without complications
CPT/HCPCS: 36415; 80053; 82306; 82607; 82746; 84153; 84439; 84443; 85025; 85652

== ENCOUNTER 2022-07-05 09:44 | Outpatient (REF) | payer MEDICARE, SELFPAY ==
[2022-07-05 10:14] LABS: Anion Gap 14 (12-20); Blood Urea Nitrogen 13 mg/dL (9-16); Calcium 8.4 mg/dL (8.4-10.2); Carbon Dioxide 24 mmol/L (22-29); Chloride 105 mmol/L (96-108); Estimated Glomerular Filt Rate > 60; Glucose Fasting 124 mg/dL (60-99); Potassium 3.7 mmol/L (3.3-5.1); Sodium 139 mmol/L (135-145)
== END 2022-07-05 09:45 | disposition home or self-care (01) ==
LOC: HO.HSH1N 09:44
PROVIDERS: Visit Provider Nurse Practitioner
DX: Z13.89 Encounter for screening for other disorder (principal)
CPT/HCPCS: 36415; 80048

== ENCOUNTER 2022-07-08 05:43 | Outpatient (REF) | payer MEDICARE, SELFPAY ==
[2022-07-08 08:06] LABS: MANUAL DIFF FLAG NO
[2022-07-08 08:16] LABS: Basophils Percent Auto 0.5 % (0-2); Eosinophils Absolute Auto 0.2 X10*3/uL (0.0-0.4); Eosinophils Percent Auto 4.1 % (0-4); Hemoglobin 9.8 g/dl (14.0-18.0); Imm Gran Abs Auto 0.05 X10*3/uL (0.00-0.03); Imm Gran Pct Auto 0.9 % (0.0-0.4); Lymphocytes Absolute Auto 1.5 X10*3/uL (1.2-4.9); Lymphocytes Percent Auto 26.7 % (20-40); Mean Corpuscular HGB Conc 31.6 g/dl (31.0-36.0); Mean Corpuscular Hemoglobin 30.4 pg (27.0-33.0); Mean Corpuscular Volume 96.3 fL (80.0-98.0); Mean Platelet Volume 9.1 fL (9.4-12.4); Monocytes Absolute Auto 0.7 X10*3/uL (0.1-1.2); Monocytes Percent Auto 12.7 % (2-11); Neutrophils Absolute Auto 3.1 x10*3/uL (2.0-8.3); Neutrophils Percent Auto 55.1 % (45-73); Platelet Count 214 X10*3/uL (160-400); Red Blood Count 3.22 X10*6/uL (4.60-5.80); Red Cell Distribution Width 14.1 % (11.0-16.0); White Blood Count 5.7 X10*3/uL (4.8-10.8)
[2022-07-08 08:38] LABS: Valproate 17.4 mcg/mL (50.0-100.0)
[2022-07-08 08:48] LABS: Alanine Aminotransferase 7 U/L (0-40); Albumin Level 2.7 g/dL (3.5-5.0); Alkaline Phosphatase 50 U/L (39-117); Anion Gap 13 (12-20); Aspartate Amino Transferase 13 U/L (5-37); Bilirubin Total 0.2 mg/dL (0.0-1.0); Blood Urea Nitrogen 18 mg/dL (9-16); Calcium 7.8 mg/dL (8.4-10.2); Carbon Dioxide 26 mmol/L (22-29); Chloride 110 mmol/L (96-108); Estimated Glomerular Filt Rate > 60; Glucose Fasting 75 mg/dL (60-99); Potassium 4.3 mmol/L (3.3-5.1); Sodium 145 mmol/L (135-145); Total Protein 4.4 g/dL (6.5-8.0)
[2022-07-08 09:17] LABS: Folate 16.8 ng/mL (> or = 4.0); Thyroid Stimulating Hormone 0.35 uIU/mL (0.32-4.0)
== END 2022-07-08 05:44 | disposition home or self-care (01) ==
LOC: HO.HSH1N 05:43
PROVIDERS: Visit Provider Internal Medicine Medical Oncology
DX: K50.90 Crohn's disease, unspecified, without complications (principal); D64.9 Anemia, unspecified
CPT/HCPCS: 36415; 80053; 80164; 82746; 84443; 85025

== ENCOUNTER 2022-08-31 21:30 | Outpatient (REF) | payer MEDICARE, SELFPAY ==
[2022-09-01 02:42] LABS: Leukocytes Stool Qualitative NEGATIVE (NEGATIVE)
== END 2022-08-31 21:31 | disposition home or self-care (01) ==
LOC: HO.HSH 21:30
PROVIDERS: Visit Provider Internal Medicine
DX: R19.7 Diarrhea, unspecified (principal)
CPT/HCPCS: 89055

== ENCOUNTER 2022-09-01 06:42 | Outpatient (REF) | payer MEDICARE, SELFPAY ==
[2022-09-01 08:29] LABS: Free T4 (Free Thyroxine) 1.18 ng/dL (0.71-1.85)
== END 2022-09-01 06:43 | disposition home or self-care (01) ==
LOC: HO.HSH2E 06:42
PROVIDERS: Visit Provider Internal Medicine Medical Oncology
DX: E03.9 Hypothyroidism, unspecified (principal)
CPT/HCPCS: 36415; 84439; 84443

== ENCOUNTER 2022-10-14 06:01 | Outpatient (REF) | payer MEDICARE, SELFPAY ==
[2022-10-14 06:13] LABS: MANUAL DIFF FLAG NO
[2022-10-14 06:33] LABS: Basophils Absolute Auto 0.1 X10*3/uL (0.0-0.2); Basophils Percent Auto 0.9 % (0-2); Eosinophils Absolute Auto 0.2 X10*3/uL (0.0-0.4); Eosinophils Percent Auto 3.3 % (0-4); Hematocrit 31.6 % (42.0-52.0); Imm Gran Abs Auto 0.06 X10*3/uL (0.00-0.03); Imm Gran Pct Auto 0.9 % (0.0-0.4); Lymphocytes Absolute Auto 1.9 X10*3/uL (1.2-4.9); Lymphocytes Percent Auto 29.6 % (20-40); Mean Corpuscular HGB Conc 31.6 g/dl (31.0-36.0); Mean Corpuscular Hemoglobin 30.3 pg (27.0-33.0); Mean Corpuscular Volume 95.8 fL (80.0-98.0); Mean Platelet Volume 9.2 fL (9.4-12.4); Monocytes Absolute Auto 0.7 X10*3/uL (0.1-1.2); Monocytes Percent Auto 11.3 % (2-11); Neutrophils Absolute Auto 3.5 x10*3/uL (2.0-8.3); Platelet Count 228 X10*3/uL (160-400); Red Cell Distribution Width 15.1 % (11.0-16.0); White Blood Count 6.4 X10*3/uL (4.8-10.8)
[2022-10-14 07:02] LABS: Alanine Aminotransferase 8 U/L (0-40); Albumin Level 3.2 g/dL (3.5-5.0); Alkaline Phosphatase 53 U/L (39-117); Anion Gap 12 (12-20); Aspartate Amino Transferase 13 U/L (5-37); Bilirubin Total 0.3 mg/dL (0.0-1.0); Blood Urea Nitrogen 16 mg/dL (9-16); Calcium 8.6 mg/dL (8.4-10.2); Carbon Dioxide 27 mmol/L (22-29); Chloride 109 mmol/L (96-108); Estimated Glomerular Filt Rate > 60; Glucose Fasting 69 mg/dL (60-99); Potassium 4.7 mmol/L (3.3-5.1); Sodium 143 mmol/L (135-145)
[2022-10-14 07:09] LABS: Free T4 (Free Thyroxine) 1.35 ng/dL (0.71-1.85); Thyroid Stimulating Hormone 0.49 uIU/mL (0.32-4.0)
[2022-10-14 13:37] LABS: Erythrocyte Sedimentation Rate 11 MM/HR (0-15)
== END 2022-10-14 06:02 | disposition home or self-care (01) ==
LOC: HO.HSH2E 06:01
PROVIDERS: Visit Provider Internal Medicine Medical Oncology
DX: D64.9 Anemia, unspecified (principal); E03.9 Hypothyroidism, unspecified
CPT/HCPCS: 36415; 80053; 84439; 84443; 85025; 85652

== ENCOUNTER 2023-03-23 12:54 | Outpatient (AMB) | payer MEDICARE, SELFPAY ==
--- NOTE | 2023-03-23 13:21 | A.OFFVIS_ITS ---
Intake Vital Signs 03/23/23 13:31 Respiration 19 Pulse 92 Pulse Source Pulse Oximeter Pulse Oximetry (%) 97 Oxygen Delivery Method Room Air Intake Visit Reasons: ENP- Worsening Movement disorder - confirmed Intake Note: Pt presents to the office for new pt evaluation for worsening movement disorder. He states they sent me over here because I wasn't leaving my room . Allergies sertraline [Zoloft] Allergy (Unknown, Verified 03/23/23 13:31) Unknown lactose [Lactose] Adverse Reaction (Intermediate, Verified 03/23/23 13:31) DIARRHEA Medication List - Last Reconciled 03/31/23 by Amy Escoto CNP alendronate 70 mg PO QWEEK cholecalciferol (vitamin D3) 25 mcg PO DAILY deutetrabenazine (Austedo) 6 mg PO BID 30 days divalproex 250 mg PO ONCE escitalopram oxalate 10 mg PO DAILY fludrocortisone 0.2 mg PO DAILY folic acid 1 mg PO DAILY gabapentin 100 mg PO BID levothyroxine 112 mcg PO DAILY melatonin 3 mg PO BEDTIME PRN omeprazole 20 mg PO DAILY polyethylene glycol 3350 (Miralax) 17 grams PO DAILY PRN prednisone 20 mg PO Q OTHER DAY simethicone (Gas Relief 80 (simethicone)) 80 mg PO BID-QID PRN sulfasalazine 0.5 grams PO Q6H HPI HPI Comments History of Present Illness Details 77 y/o male patient presents for new in- person visit with staff from [facility] for evaluation of worsening involuntary movement. Pt's RN reports that he had had involuntary movement, oral and kicking for a long time, but it has been worsened. He has new head movement, it started about 6 months intermittently but now it is more constant. His speech is more slurred. Pt's RN reports no involuntary head movement or kicking when he sleep. Per [facility] staff, he always having bloating, heartburn, GI issue. He was on Reglan for a long time, and it is discontinued. He tried Benadryl and gabapentin, but they were not helpful to reduce the involuntary movement. [facility] Medical History (Updated 03/31/23 @ 14:41 by Amy Escoto CNP) Osteoarthritis Crohn disease Dementia Anxiety MDD (major depressive disorder) Surgical History Hx of colonoscopy History of tonsillectomy Family History Father Myocardial infarction Mother Cancer of kidney Social History Alcohol intake: never Review of Systems Const All systems reviewed & are unremarkable except as noted in HPI and below ENT Reports Normal hearing present Neuro Reports Normal hearing present Physical Exam Vital Signs: Last Vital Signs Pulse 92 03/23/23 13:31 Resp 19 03/23/23 13:31 Pulse Ox 97 03/23/23 13:31 Oxygen Delivery Method Room Air 03/23/23 13:31 Const General: cooperative Neuro Other: Constant head movement and sucking, oral and tongue movement. Mild hands tremor. Intermittent legs kicking movement. General: Unable to assess gait Cranial nerves: Yes Normal hearing present Gait exam (Neuro): Unable to assess gait Assessment & Plan Assessment & Plan (1) Tardive dyskinesia: Comment: hx of jail use Reglan. Code(s): G24.01 - Drug induced subacute dyskinesia Plan Advised patient to try Austedo 6 mg BID for tardive dyskinesia. Medications: New sulfasalazine give with food (meal/snack) 0.5 grams PO Q6H simethicone (Gas Relief 80 (simethicone)) 80 mg PO BID-QID PRN deutetrabenazine (Austedo) 6 mg PO BID 60 tabs 1RF 30 days Coding Level of Care Code New Pt Level 3 (07502) Diagnoses Tardive dyskinesia G24.01
[2023-03-23 13:31] VITALS: PULSE 92; RESP 19; O2SAT 97
== END 2023-03-23 14:24 | disposition home or self-care (01) ==
PROVIDERS: PCP Internal Medicine Medical Oncology; Visit Provider Nurse Practitioner Family
DX: G24.01 Drug induced subacute dyskinesia (principal)
CPT/HCPCS: 99203

== ENCOUNTER → 2023-03-23 12:54 | Outpatient (BNVA) | payer MEDICARE, SELFPAY | PROVIDERS: PCP Internal Medicine Medical Oncology; Visit Provider Nurse Practitioner Family | DX: G24.01 Drug induced subacute dyskinesia (principal) | CPT/HCPCS: 99202 ==

== ENCOUNTER 2023-04-03 05:02 | Outpatient (REF) | payer MEDICARE, SELFPAY ==
[2023-04-03 06:06] LABS: MANUAL DIFF FLAG NO
[2023-04-03 06:15] LABS: Basophils Absolute Auto 0.1 X10*3/uL (0.0-0.2); Basophils Percent Auto 0.8 % (0-2); Eosinophils Absolute Auto 0.3 X10*3/uL (0.0-0.4); Eosinophils Percent Auto 3.5 % (0-4); Hematocrit 30.1 % (42.0-52.0); Hemoglobin 9.3 g/dl (14.0-18.0); Imm Gran Pct Auto 1.4 % (0.0-0.4); Lymphocytes Absolute Auto 2.3 X10*3/uL (1.2-4.9); Lymphocytes Percent Auto 32.6 % (20-40); Mean Corpuscular HGB Conc 30.9 g/dl (31.0-36.0); Mean Corpuscular Hemoglobin 28.7 pg (27.0-33.0); Mean Corpuscular Volume 92.9 fL (80.0-98.0); Monocytes Absolute Auto 0.8 X10*3/uL (0.1-1.2); Monocytes Percent Auto 10.9 % (2-11); Neutrophils Absolute Auto 3.7 x10*3/uL (2.0-8.3); Neutrophils Percent Auto 50.8 % (45-73); Platelet Count 241 X10*3/uL (160-400); Red Blood Count 3.24 X10*6/uL (4.60-5.80); White Blood Count 7.2 X10*3/uL (4.8-10.8)
[2023-04-03 06:35] LABS: Alanine Aminotransferase 12 U/L (0-40); Albumin Level 3.3 g/dL (3.5-5.0); Alkaline Phosphatase 50 U/L (39-117); Anion Gap 8 (12-20); Aspartate Amino Transferase 21 U/L (5-37); Bilirubin Total 0.2 mg/dL (0.0-1.0); Blood Urea Nitrogen 14 mg/dL (9-16); Calcium 8.2 mg/dL (8.4-10.2); Carbon Dioxide 28 mmol/L (22-29); Chloride 112 mmol/L (96-108); Estimated Glomerular Filt Rate 57; Glucose Fasting 78 mg/dL (60-99); Potassium 3.9 mmol/L (3.3-5.1); Sodium 144 mmol/L (135-145); Total Protein 5.4 g/dL (6.5-8.0)
[2023-04-03 06:49] LABS: Free T4 (Free Thyroxine) 1.09 ng/dL (0.71-1.85); Thyroid Stimulating Hormone 2.91 uIU/mL (0.32-4.0)
[2023-04-03 07:19] LABS: Erythrocyte Sedimentation Rate 12 MM/HR (0-15)
== END 2023-04-03 05:03 | disposition home or self-care (01) ==
LOC: HO.HSH2E 05:02
PROVIDERS: Visit Provider Internal Medicine Medical Oncology
DX: E03.9 Hypothyroidism, unspecified (principal); D64.9 Anemia, unspecified; K50.90 Crohn's disease, unspecified, without complications
CPT/HCPCS: 36415; 80053; 83735; 84439; 84443; 85025; 85652

== ENCOUNTER 2023-11-13 13:48 | Outpatient (AMB) | payer MEDICARE, SELFPAY ==
--- NOTE | 2023-11-13 14:33 | MHC.OFFVIS ---
Vital Signs 11/13/23 14:34 Height 5 ft 8 in Intake Visit Reasons: Chronic liquid stool Intake Note: Stevie presents to in office visit today as a new patient with c/o chronic liquid stool. 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 Per notes he is having 7-10 loose stools a day. Patient taking PRN Imodium which is ineffective at times. Abdomen frequently very distended and hard Distribution Center Manager Required: No Allergies sertraline [Zoloft] Allergy (Unknown, Verified 11/13/23 14:57) Unknown lactose [Lactose] Adverse Reaction (Intermediate, Verified 11/13/23 14:57) DIARRHEA HPI HPI Chronic liquid stool: Details: Assessment & Plan (1) Crohn disease: Code(s): K50.90 - Crohn's disease, unspecified, without complications Category: Medical Plan: I speak with Aleja who is new staff for him; he is in a SNF. She tells me that he is doing better. He has had no more vomiting is doing better with drinking his Ensure and eating greater amounts of his meals. He is taking the Reglan 10 mg before meals and continues with this. His bowel movements are no longer diarrheal he has soft stools with no fecal incontinence. His abdomen is still somewhat distended, but given his positive progress the patient is not complaining of discomfort. He is now on only 20 mg of prednisone and on sulfasalazine is a maintenance drug. The prednisone is being tapered by Dr. Lamar who manages him in the SNF. At this point, I ask if he wants to continue to follow with us or if he will be managed by the nursing facility and they opted for the latter. They will call me should his condition worsen but this time they are not amenable to any change in his baseline Crohn's medication. Obviously this is fine in the no way to reach me. (2) Abdominal bloating: Code(s): R14.0 - Abdominal distension (gaseous) Category: Medical TODAY'S VISIT This patient has been lost to follow-up since 06/2020 Initially, there is no medication list in the packet sent with the patient. I suspect that he is no longer stable or even on his Crohns medications, but I need to verify this. The patient is not cognitively intact enough to provide any background information. After getting the med list fax me it appears that they attempted giving him 10 mg of prednisone a day without response. I think this is just too low a dose to put his Crohn's back into remission so we will give more aggressive prednisone dosing. It does appear that he continues on his mesalamine. It is also possible that we need to progress to biologics. Return office visit in 2 weeks to assess his response [facility] Medical History Osteoarthritis Crohn disease Dementia Anxiety MDD (major depressive disorder) Surgical History Hx of colonoscopy History of tonsillectomy Family History Father Myocardial infarction Mother Cancer of kidney Social History Alcohol intake: never Review of Systems Const Denies fatigue, Denies fever(s), Denies night sweats, Denies poor appetite and Denies weight loss ENT Reports Normal hearing present, Denies dental pain, Denies dysphagia, Denies hearing loss, Denies mouth pain, Denies odynophagia, Denies throat swelling, Denies tongue swelling and Reports other (Dentition adequate) Card Reports no additional complaints Resp Reports no additional complaints GI Details: Denies abdominal pain, Denies melena, Denies bloating, Denies hematochezia, Denies constipation, Denies GI cramping, Denies dysphagia, Denies excessive flatus, Denies early satiety, Denies heartburn, Reports diarrhea, Denies nausea, Denies odynophagia, Denies vomiting and Denies hematemesis Musc Reports abnormal gait, Reports back pain and Reports myalgias Skin/Breast Denies pruritus, Denies lesions, Denies rash and Denies jaundice Neuro Reports Normal hearing present, Denies Abnormal speech present, Reports abnormal gait, Reports lack of coordination and Reports memory loss Psych Reports memory loss Endo Denies fatigue Aller/Immun Denies throat swelling and Denies tongue swelling Physical Exam Const General: cooperative, no acute distress, well developed and well groomed Nutritional Appearance: well nourished and obese Orientation/consciousness: oriented to person, oriented to place and oriented to time Limitations: No language barrier, physical limitations, wheelchair and other limitations HEENT Head: Yes normocephalic and Yes atraumatic Eyes General: appearance normal, both eyes and all related structures Pupils: Equal, round and reactive pupils present Neck Neck: Yes normal visual inspection and Yes no lymphadenopathy Thyroid: Thyroid normal Resp Effort & Inspection: normal respiratory effort and able to speak in complete sentences Auscultation: clear to auscultation bilaterally Cardio Rate: regular rate Rhythm: regular rhythm Heart sounds: Normal, physiologic split S2 sound present Peripheral pulses: radial pulses present and posterior tibial pulses present GI Other: caput medusae Inspection: Yes distended, Yes Abdominal panniculus present and Yes obesity Palpation (GI): Soft to palpation, nontender, no guarding, not rigid and No hepatosplenomegaly present Percussion: Yes normal to percussion Auscultation: normal bowel sounds Rectal Exam - Male: Yes deferred Skin General skin exam: no rashes or lesions noted, turgor normal, skin not dry, no jaundice, No spider nevi and no striae Rashes: no rashes Nails: normal Neuro General: oriented to person, oriented to place and oriented to time Cranial nerves: Yes Equal, round and reactive pupils present and Yes Normal hearing present Speech: No Abnormal speech present Extrem General: Yes normal to inspection, No clubbing, No cyanosis and No edema Psych Appearance: grossly normal and well kempt Mental Status: other Speech and movement: Slurred speech present and Slowed speech present (Psych) Affect: normal affect Attitude: cooperative Thought process: Other thought process findings present Thought content: other Insight: Poor insight present (Psych) Judgement: Poor judgement present (Psych) Assessment & Plan Assessment & Plan (1) Crohn disease: Code(s): K50.90 - Crohn's disease, unspecified, without complications Category: Medical (2) Weight loss, abnormal: Comment: About 25 lb in the past year Code(s): R63.4 - Abnormal weight loss Category: Medical Plan This patient has been lost to follow-up since 06/2020 Initially, there is no medication list in the packet sent with the patient. I suspect that he is no longer stable or even on his Crohns medications, but I need to verify this. The patient is not cognitively intact enough to provide any background information. After getting the med list fax me it appears that they attempted giving him 10 mg of prednisone a day without response. I think this is just too low a dose to put his Crohn's back into remission so we will give more aggressive prednisone dosing. It does appear that he continues on his mesalamine. It is also possible that we need to progress to biologics. Return office visit in 2 weeks to assess his response Medications: New prednisone 60 mg (3 x 20 mg) PO DAILY 90 tabs 3RF K50.90 - Crohn's disease, unspecified, without complications Coding Level of Care Code Est Pt Level 3 (61547) Diagnoses Crohn disease K50.90 Weight loss, abnormal R63.4
== END 2023-11-13 15:45 | disposition home or self-care (01) ==
PROVIDERS: PCP Internal Medicine Medical Oncology; Referring Provider Internal Medicine Medical Oncology; Visit Provider Nurse Practitioner
DX: K50.90 Crohn's disease, unspecified, without complications (principal); R63.4 Abnormal weight loss
CPT/HCPCS: 99213

== ENCOUNTER → 2023-11-13 13:48 | Outpatient (BNVA) | payer MEDICARE, SELFPAY | PROVIDERS: PCP Internal Medicine Medical Oncology; Referring Provider Internal Medicine Medical Oncology; Visit Provider Nurse Practitioner | DX: K50.90 Crohn's disease, unspecified, without complications (principal); R63.4 Abnormal weight loss; Z79.52 Long term (current) use of systemic steroids; Z79.899 Other long term (current) drug therapy | CPT/HCPCS: 99212 ==

== ENCOUNTER 2023-12-04 06:43 | Inpatient (IN) | payer MEDICARE, SELFPAY ==
[2023-12-04] VITALS (10 sets, daily range): BP systolic 97–144; BP diastolic 48–72; PULSE 66–107; RESP 11–22; TEMP 36.2–38.6; O2SAT 91–97; BMI 24.3
--- NOTE | ~2023-12-04 | FL_ITS ---
EXAMINATION: FL SMALL BOWEL SERIES CLINICAL INFORMATION: 78-year-old male, history of Crohn's disease, abdominal distention with CT abdomen pelvis 12/04/2023 demonstrating a possible SBO with transition point in the distal ileum. Patient presented with fever, hypoxia, and bilateral lower lobe consolidations, as well as abdominal distention. COMPARISON: No prior small bowel series. CT abdomen and pelvis 12/04/2023, and prior abdomen pelvis CTs dating back to 12/31/2016, and 07/25/2009. TECHNIQUE: Following a associate professor of economics image of the abdomen, contrast was administered orally, and interval abdominal radiographs were performed to assess for contrast progression through the small bowel. Examination was carried out until 5 hour 30 minutes, when contrast was seen in the ascending colon. 13 overhead radiographs were obtained. FINDINGS: Fire Chief Image of the Abdomen: -Numerous extremely dilated loops of small bowel throughout the abdomen, measuring up to 11 cm in the right lower quadrant. Patient appears to have chronic dilation of the small bowel, likely representing chronic atonic state. Cannot definitively exclude a small bowel obstruction. Some somewhat decompressed loops are noted both proximally involving the duodenum and proximal jejunum, as well as distally in the right lower quadrant. -Bilateral femoral head AVN present without subchondral collapse. -Diffuse osteopenia of the osseous structures with several mild chronic compression deformities of lower thoracic and lumbar vertebral bodies. -Both SI joints appear fused, consistent with sacroiliitis, likely related to underlying Crohn's. Cannot exclude superimposed ankylosing spondylitis. -Calcifications in the right upper quadrant consistent with gallstones. -Inferior pelvis was excluded from view. Extensive calcification of the aorta and iliac arteries. -Calcifications overlying the left renal shadow upper pole consistent with nephrolithiasis. -There are are bilateral basilar pulmonary opacities left greater than right, consistent with pneumonia. Aspiration is a consideration. -There is normal amount of fecal residue seen in the colon and rectum. The colon is not dilated. Gas is seen in the appendix. -No definite evidence of free intraperitoneal air. Small Bowel Series: -Several dilated loops of small bowel demonstrate mild wall thickening, most notable on the 330 minute images. This suggests underlying foci of small bowel inflammation. -Contrast did dispersed through these dilated loops slowly but progressively. Dilute contrast seen in the more decompressed distal ileum at 2 hours and 30 minutes. -Transit time to the ascending colon was prolonged, with visualization of colon at 5 hours 30 minutes. Contrast did opacify the descending, transverse, and proximal descending colon by this time. Findings would argue against high grade small bowel obstruction, although low-grade small bowel obstruction is also a possibility. FL/FL small bowel follow through IMPRESSION: 1. Chronically dilated small bowel involving the majority of the mid small bowel. Findings suggest a chronic atonic state. Cannot definitively exclude a superimposed low-grade or partial SBO. Contrast was visualized in the distal ileum at 2 hours and 30 minutes, and in the colon at 5 hours and 30 minutes. Prolonged transit time likely reflective of chronic atonic state. No definitive free intraperitoneal air. If there are clinical signs of possible perforation or peritonitis, repeat CT recommended. 2. Mild thickening of several central loops of small bowel, suggesting inflammation in the setting of known Crohn's disease. Both the proximal jejunum and distal ileum appear decompressed. 3. Numerous skeletal findings as detailed above, including bilateral femoral head AVN, osteopenia, fusion of the SI joints, and chronic mild compression fractures of the spine. These findings may be related to underlying sacroiliitis associated with Crohn's disease, although cannot exclude superimposed ankylosing spondylitis. 4. Gallstones. 5. Left nephrolithiasis. 6. Bibasilar pulmonary consolidations left greater than right, suggestive of pneumonia.
--- NOTE | ~2023-12-04 | CT_ITS ---
EXAMINATION: CT ABDOMEN AND PELVIS WITHOUT CONTRAST CLINICAL INFORMATION: Abdominal distention. COMPARISON: 10/07/2020 TECHNIQUE: Multidetector volumetric imaging was performed from the superior aspect of the liver through the pubic symphysis. Sagittal and coronal reformatted images were obtained on the technologist's workstation. This CT examination was performed using dose optimization techniques as appropriate, variously including the following: *Automated exposure control *Adjustment of mA and/or kV according to patient size (this includes techniques or standardized protocols for targeted exams where dose is matched to indication/reason for exam; i.e. extremities or head) *Use of iterative reconstruction technique DLP: 1068 mGy-cm FINDINGS: LUNG BASES: Please see separately dictated report. LIVER, GALLBLADDER, AND BILIARY TREE: The liver is normal in size and contour. No biliary ductal dilatation is present. Gallstones. PANCREAS: No ductal dilatation. SPLEEN: Not enlarged. ADRENAL GLANDS: No adrenal mass. KIDNEYS AND URETERS: Delayed images demonstrate intact renal function. No hydronephrosis or perinephric fluid collection. BLADDER: Minimal excreted contrast in the bladder. No bladder wall thickening. GASTROINTESTINAL TRACT: Possible gastric wall thickening despite underdistention. Persistent marked dilatation of small bowel loops measuring up to 8 cm. There are zones of transition identified in the right midabdomen and left lower quadrant. There is abnormal angular configuration of the bowel loops. No interloop fluid or pneumatosis. No significant bowel wall thickening. Marked fecal retention in the colon. Appendix is within normal limits. ABDOMINAL WALL: No significant hernia is appreciated. LYMPH NODES: No bulky lymphadenopathy. VASCULAR: Normal caliber abdominal aorta. PELVIC VISCERA: Unremarkable. OSSEOUS STRUCTURES: There are age-indeterminate mild compression fractures from T12 through L3 vertebral bodies. Sclerosis of bilateral femoral heads likely representing avascular necrosis. CT/CT abdomen pelvis wo IV con IMPRESSION: Small bowel dilatation possibly related to adhesions in the right mid abdomen and left lower quadrant. The appearance is similar to 10/07/2020. No free fluid in the abdomen or interloop fluid. No pneumatosis. Possible gastric wall thickening. Cholelithiasis.
--- NOTE | ~2023-12-04 | CT_ITS ---
EXAMINATION: CT ANGIOGRAM OF THE CHEST WITH AND WITHOUT CONTRAST (CT PULMONARY ANGIOGRAM FOR PE) CLINICAL INFORMATION: Reason for Exam Fever, hypoxia, R/O PE versus pneumonia COMPARISON: None available. TECHNIQUE: Prior to contrast administration, noncontrast localization images were obtained. Subsequently, multidetector volumetric imaging was performed from the thoracic inlet to below the diaphragms following the administration of 65 mL Omnipaque 350 intravenous contrast. No contrast reaction reported Sagittal, coronal, and MIP oblique sagittal reformatted images were obtained on the CT workstation, uploaded to PACS, and reviewed. This CT examination was performed using dose optimization techniques as appropriate, variously including the following: *Automated exposure control *Adjustment of mA and/or kV according to patient size (this includes techniques or standardized protocols for targeted exams where dose is matched to indication/reason for exam; i.e. extremities or head) *Use of iterative reconstruction technique Total exam dose-length product 361 mGy-cm FINDINGS: Image quality is technically degraded by motion artifact. QUALITY OF STUDY/CONTRAST BOLUS: Suboptimal. PULMONARY ARTERIES: No central pulmonary embolus. THORACIC AORTA: No aneurysm. LUNG: Mild centrilobular and paraseptal emphysema. Bilateral lower lobe airspace disease, left greater than right. No suspicious pulmonary nodule. Central airways are patent. PLEURA: No pleural effusion or pneumothorax. MEDIASTINUM: Normal heart size. No pericardial effusion. No hilar or mediastinal lymphadenopathy. No evidence of septal bowing or right heart strain. CORONARY ARTERY CALCIFICATION: Mild. CHEST WALL/AXILLA: No axillary or internal mammary lymphadenopathy. OSSEOUS STRUCTURES: No destructive bone lesions. UPPER ABDOMEN: Please see separately dictated report. No reflux of contrast into the hepatic veins to suggest elevated right heart pressures. CT/CT angio chest PE protocol IMPRESSION: Imaged by motion artifact. No central pulmonary embolus. Bilateral lower lobe airspace disease, left greater than right. This may represent pneumonia possibly aspiration. VTE: indeterminate
--- NOTE | ~2023-12-04 | XR_ITS ---
EXAMINATION: XR CHEST CLINICAL INFORMATION: Shortness of breath. Fever. COMPARISON: 11/17/2019 TECHNIQUE: Frontal view of the chest was obtained. FINDINGS: Low lung volumes and hypoinflation. Subsegmental atelectasis at the lung bases. No pleural effusion. Cardiac silhouette is unchanged. XR/XR chest 1V IMPRESSION: Subsegmental atelectasis. Marked gaseous distention of bowel beneath the hemidiaphragms. The appearance is similar to prior imaging.
--- NOTE | 2023-12-04 06:57 | ECG_ITS ---
Test Reason : shortness of breath Blood Pressure : / mmHG Vent. Rate : 108 BPM Atrial Rate : 108 BPM P-R Int : 136 ms QRS Dur : 084 ms QT Int : 316 ms P-R-T Axes : 055 015 053 degrees QTc Int : 423 ms Sinus tachycardia Otherwise normal ECG When compared with ECG of 04-JAN-2018 09:46, QT has shortened Referred By: Samy Khan Electronically Signed By:RASHMI MAIN
--- NOTE | 2023-12-04 07:00 | ED_ITS ---
HPI - SOB/Dyspnea General Chief Complaint: General Medical Stated Complaint: FEVER 100.2, RASH,89% 6LPM FROM [facility] PER EMS Time Seen by Provider: 12/04/23 06:45 Source: patient Mode of arrival: EMS Limitations: other (Patient may be unreliable, was able to tell me his name but says no to every question) History of Present Illness ED Provider: Dr. Samy Khan HPI Narrative: 78-year-old male with a history of anxiety, anorexia nervosa, dementia without behavioral disturbances, osteoarthritis, BPH, alcohol dependence in remission, depression, Crohn's disease, anemia who currently resides at [facility] in [place] who was sent to the emergency department for evaluation of low-grade fever, restlessness, inability to sleep and rash to his face and neck. Patient is unreliable informant. He was able to tell me his name but lacks insight as to why he is here. He answers all questions with ?no?. Following information was obtained from the transfer form: ?That was unable to sleep, increased involuntary body movements-increased anxiety at 05:00 , schedule meds given: Clonazepam 1.5 mg, L down rate 70 mg, levothyroxine 112 mcg, Ativan 0.5 mg. Prednisone decreased to 40 mg forearm 60 mg on 11/30/2023, 2 puffs albuterol. Lung sounds rhonchi and expiratory wheezing. Vital signs BP 145/63, heart rate 82, respiratory 28, temperature 100.2 degrees F orally, O2 saturation 85% on room air. O2 saturation 89-90% on 4 L. additional-new rash/redness nose, cheeks and back of neck. Patient has a MOLST form which states that he has a DNR DNI and do not use noninvasive measures. Related Data Home Medications ?Medication ?Instructions ?Recorded ?Confirmed alendronate 70 mg tablet 70 mg PO QWEEK 03/23/23 03/23/23 cholecalciferol (vitamin D3) 25 25 mcg PO DAILY 03/23/23 03/23/23 mcg (1,000 unit) tablet divalproex 125 mg capsule,delayed 250 mg PO ONCE 03/23/23 03/23/23 release sprinkle escitalopram oxalate 10 mg tablet 10 mg PO DAILY 03/23/23 03/23/23 fludrocortisone 0.1 mg tablet 0.2 mg PO DAILY 03/23/23 03/23/23 folic acid 1 mg tablet 1 mg PO DAILY 03/23/23 03/23/23 gabapentin 100 mg capsule 100 mg PO BID 03/23/23 03/23/23 levothyroxine 112 mcg capsule 112 mcg PO DAILY 03/23/23 03/23/23 melatonin 3 mg tablet 3 mg PO BEDTIME PRN 03/23/23 03/23/23 omeprazole 20 mg capsule,delayed 20 mg PO DAILY 03/23/23 03/23/23 release simethicone 80 mg chewable tablet 80 mg PO BID-QID PRN 03/23/23 03/23/23 (Gas Relief 80 (simethicone)) sulfasalazine 500 mg tablet 0.5 g PO Q6H 03/23/23 03/23/23 Previous Rx's ?Medication ?Instructions ?Recorded polyethylene glycol 3350 17 17 g PO DAILY PRN constipation 10/07/20 gram/dose oral powder (Miralax) #238 grams deutetrabenazine 6 mg tablet 6 mg PO BID 30 days #60 tabs 03/23/23 (Austedo) prednisone 20 mg tablet 60 mg (3 x 20 mg) PO DAILY #90 tabs 11/13/23 Allergies Allergy/AdvReac Type Severity Reaction Status Date / Time sertraline [Zoloft] Allergy Unknown Unknown Verified 12/04/23 06:55 lactose [Lactose] AdvReac Intermediate DIARRHEA Verified 12/04/23 06:55 Review of Systems 2 Review of Systems: Yes all other systems are reviewed and are negative [facility] Past Medical History Medical History Osteoarthritis Crohn disease Dementia Anxiety MDD (major depressive disorder) Surgical History Hx of colonoscopy History of tonsillectomy Family History Family History Father Myocardial infarction Mother Cancer of kidney Social History Social History Alcohol intake: former Smoked in Last 30 Days: No Use of substances other than those prescribed or required for medical reasons: No Advance Directives: Yes Advance Directives on File: Yes Advance Directives Date on File: 10/07/20 Physical Exam 2 Vital Signs: Vital Signs: Last Vital Signs Temp 100.0 F 12/04/23 10:16 Pulse 82 12/04/23 11:25 Resp 12 12/04/23 11:25 BP 106/54 L 12/04/23 11:25 Pulse Ox 97 12/04/23 11:25 O2 Del Method Venturi Mask 12/04/23 11:25 O2 Flow Rate 4 12/04/23 11:25 Oxygen Flow Rate 6 12/04/23 06:54 BMI result Body Mass Index 24.3 Exam: General: Patient is awake, appears dyspneic and tachypneic, audible wheezing/stridor, oriented to person only, lacks insight as to why he has here in the emergency department traffic freight router: Normocephalic, atraumatic EENT: PERRL, Lids normal, sclera normal, conjunctiva normal, nose normal , ears normal, throat without erythema or exudates Neck: Supple, no adenopathy Lung: breath sounds symmetric, diffuse rhonchi and wheezing with rales at the bases Chest: symmetric movement, nontender Heart: regular rate and rhythm, normal S1, S2 no murmurs or rubs Abdomen: soft, distended, diminished bowel sounds but present, no abdominal tenderness, no rebound, no voluntary or involuntary guarding Back: no vertebral tenderness, no CVAT Extremities: no deformities, moves all extremities symmetrically, trace pitting edema, bilaterally symmetric Neuro: Awake, alert, oriented to person only, lacks insight as to why he is here, cranial nerves intact, moves all extremities symmetrically Psych: Pleasant, cooperative Medications Administered Discontinued Medications Generic Name Dose Route Start Last Admin Trade Name Magnolia PRN Reason Stop Dose Admin Acetaminophen 975 mg 12/04/23 06:57 12/04/23 07:18 Acetaminophen 325 Mg Tablet PO 12/04/23 06:58 975 mg ONCE STA Administration Albuterol Sulfate 2.5 mg/ 0 mg 12/04/23 06:55 12/04/23 07:07 Albuterol/Ipratropium 3 ml INHALE 12/04/23 06:56 2 dose ONCE ONE Administration Piperacillin Sod/Tazobactam 100 mls @ 200 mls/hr 12/04/23 08:38 12/04/23 09:28 Sod 4.5 gm/ Sodium Chloride IV 12/04/23 09:07 Infused ONCE ONE Infusion Sodium Chloride 1,000 mls @ 999 mls/hr 12/04/23 08:38 12/04/23 10:17 Ns IV 12/04/23 09:38 Infused .Q1H1M STA Infusion Ibuprofen 400 mg 12/04/23 08:43 12/04/23 08:46 Ibuprofen 400 Mg Tablet PO 12/04/23 08:44 400 mg ONCE STA Administration Iohexol 100 ml 12/04/23 10:15 12/04/23 10:15 Iohexol 350 Mg/Ml 100 Ml Infus..Btl IV 12/04/23 10:16 65 ml ONCE ONE Administration Medical Decision Making Medical Decision Making MDM Narrative: 78-year-old male with a history of anxiety, anorexia nervosa, dementia without behavioral disturbances, osteoarthritis, BPH, alcohol dependence in remission, depression, Crohn's disease, anemia who currently resides at the [facility] in [place] who was sent to the emergency department for evaluation of low-grade fever, hypoxia, restlessness, inability to sleep and rash to his face and neck. Transfer form noted a temperature of 100.2 degrees point degrees F orally, elevated respiratory rate of 28, hypoxia with an O2 saturation of 85% on room air. orthophotography technician placed the patient on 6 L of oxygen via nasal cannula his O2 saturation on presentation was 92%. Patient has dementia and is oriented to person only and lacks insight as to why he is here, he has an unreliable informant. Patient does appear to be dyspneic and tachypneic on presentation. Lung exam revealed diffuse wheezing and rhonchi with rales at the bases. Patient has a distended abdomen when I believe this is chronic, has no abdominal tenderness. He does have trace pitting edema bilaterally symmetric. 08:41 Differential diagnosis: ?Includes but is not limited to pneumonia, congestive heart failure, urinary tract infection, viral syndrome, COVID-19, influenza, RSV, bronchodilator protocol Following evaluation was ordered: CBC, CMP, PTT, urinalysis (straight cath), BNP, troponin, lactic acid, blood cultures x2, COVID-19, influenza, RSV Patient was initially treated with the following: IV insert, cardiac monitoring, O2 saturation monitoring, OxyMask at 5 LPM, Tylenol 975 mg orally, and albuterol 5 mg with ipratropium 2.5 mg nebulized Course: 08:41 My interpretation patient's laboratory evaluation as follows: WBC was elevated 21,500 with a left shift 85 neutrophils. BUN is elevated 20 with a normal creatinine of 1.27. Patient's BNP was normal at 46. Lactic acid normal 1.9. High sensitive troponin I was detectable but not elevated at 8.1. Patient's COVID-19, influenza and RSV were negative. Chest x-ray did not reveal a clear infiltrate however clinically the patient's symptoms are consistent with pneumonia therefore I ordered Zosyn 4.5 g IV and normal saline IV x1 L. the patient''s BNP was normal suggesting he does not have congestive heart failure is the cause of his symptoms. I will obtain a CT pulmonary angiogram PE protocol to rule out pulmonary embolism and to further evaluate his lungs for possible pneumonia. Also given the abdominal distention, I will get a CT scan of the abdomen pelvis IV contrast as well to rule out obstruction. Twelve EKG revealed a sinus tachycardia otherwise was unremarkable. 11:27 CT pulmonary angiogram PE protocol was limited secondary to motion artifact but there has no acute PE noted, radiologist noted bilateral lower airspace disease left greater than right. This is consistent with patient's presentation and most likely represents an aspiration pneumonia. CT scan of the abdomen pelvis is pending but I do not think the patient has bowel obstruction. I did discuss patient's case with the covering hospitalist, Dr. Mckeon and the patient will be admitted for further management Admission/Observation Consideration of admission/observation: Escalation of care including admission/observation considered Consult Healthcare Provider Management of the patient was discussed with: Hospitalist Lab Data [facility] Lab Attestation statement: I reviewed the patient's lab results. 12/04/23 07:10 12/04/23 07:10 Labs: Lab Results 12/04/23 12/04/23 12/04/23 Range/Units 07:05 07:09 07:10 WBC 21.5 H (4.8-10.8) X10*3/uL RBC 4.11 L D (4.60-5.80) X10*6/uL Hgb 11.2 L D (14.0-18.0) g/dl Hct 37.2 L D (42.0-52.0) % MCV 90.5 (80.0-98.0) fL MCH 27.3 (27.0-33.0) pg MCHC 30.1 L (31.0-36.0) g/dl RDW 17.6 H (11.0-16.0) % Plt Count 221 (160-400) X10*3/uL MPV 9.3 L (9.4-12.4) fL Immature Gran % (Auto) Cancelled Neut % (Auto) Cancelled Lymph % (Auto) Cancelled [place] % (Auto) Cancelled Eos % (Auto) Cancelled Baso % (Auto) Cancelled Lymph # (Auto) Cancelled [place] # (Auto) Cancelled Eos # (Auto) Cancelled Baso # (Auto) Cancelled Abs Immat Gran (auto) Cancelled Absolute Neuts (auto) Cancelled Absolute Nucleated RBC 0.000 (0.0-0.012) X10*3/uL Nucleated RBC % (auto) 0.0 (0.0-0.2) /100WBC Neutrophils % (Manual) 85 H (45-73) % Band Neutrophils % 1 L (3-5) % Lymphocytes % (Manual) 9 L (20-40) % Monocytes % (Manual) 3 (2-11) % Metamyelocytes % 2 % Abs Neuts (Manual) 18.5 H (2.0-8.3) X10*3/uL Lymphocytes # (Manual) 1.9 (1.2-4.9) X10*3/uL Monocytes # (Manual) 0.6 (0.1-1.2) X10*3/uL Metamyelocytes # 0.4 X10*3/uL Platelet Estimate NORMAL (NORMAL) Plt Morphology Comment NORMAL RBC Morphology NOTED Polychromasia 1+ (0-2) /OIF Hypochromasia 1+ (5-14) /OIF Basophilic Stippling 1+ (0-2) /OIF Microcytosis 1+ (5-14) /OIF APTT 29.2 (26.0-36.8) SEC Sodium 142 (135-145) mmol/L Potassium 4.3 (3.3-5.1) mmol/L Chloride 105 (96-108) mmol/L Carbon Dioxide 27 (22-29) mmol/L Anion Gap 14 (12-20) BUN 20 H (9-16) mg/dL Creatinine 1.27 (0.5-1.4) mg/dL Estim Creat Clear Calc 51.8 Estimated GFR 55 Random Glucose 87 (60-115) mg/dL Lactic Acid 1.9 (0.5-2.0) mmol/L Calcium 9.1 D (8.4-10.2) mg/dL Total Bilirubin 0.3 (0.0-1.0) mg/dL AST 27 (5-37) U/L ALT 21 (0-40) U/L Alkaline Phosphatase 53 (39-117) U/L Troponin I High Sens 8.1 (<3.5-35.0) ng/L B-Natriuretic Peptide 46 (<100) pg/mL Total Protein 6.7 (6.5-8.0) g/dL Albumin 4.0 (3.5-5.0) g/dL Lipase 23 (8-78) U/L Urine Color Urine Appearance Urine pH (5.0-9.0) Ur Specific [place] (1.005-1.025) Urine Protein (Neg-Trace) mg/dL Urine Glucose (UA) (Negative) mg/dL Urine Ketones (Negative) mg/dL Urine Blood (Negative) Urine Nitrite (Negative) Ur Leukocyte Esterase (Negative) Influenza Type A (PCR) NEGATIVE (Negative) Influenza Type B (PCR) NEGATIVE (Negative) RSV RNA Qual (PCR) NEGATIVE (Negative) SARS-CoV-2 RNA (RT-PCR) NEGATIVE (Negative) 12/04/23 Range/Units 07:14 WBC (4.8-10.8) X10*3/uL RBC (4.60-5.80) X10*6/uL Hgb (14.0-18.0) g/dl Hct (42.0-52.0) % MCV (80.0-98.0) fL MCH (27.0-33.0) pg MCHC (31.0-36.0) g/dl RDW (11.0-16.0) % Plt Count (160-400) X10*3/uL MPV (9.4-12.4) fL Immature Gran % (Auto) Neut % (Auto) Lymph % (Auto) [place] % (Auto) Eos % (Auto) Baso % (Auto) Lymph # (Auto) [place] # (Auto) Eos # (Auto) Baso # (Auto) Abs Immat Gran (auto) Absolute Neuts (auto) Absolute Nucleated RBC (0.0-0.012) X10*3/uL Nucleated RBC % (auto) (0.0-0.2) /100WBC Neutrophils % (Manual) (45-73) % Band Neutrophils % (3-5) % Lymphocytes % (Manual) (20-40) % Monocytes % (Manual) (2-11) % Metamyelocytes % % Abs Neuts (Manual) (2.0-8.3) X10*3/uL Lymphocytes # (Manual) (1.2-4.9) X10*3/uL Monocytes # (Manual) (0.1-1.2) X10*3/uL Metamyelocytes # X10*3/uL Platelet Estimate (NORMAL) Plt Morphology Comment RBC Morphology Polychromasia /OIF Hypochromasia /OIF Basophilic Stippling /OIF Microcytosis /OIF APTT (26.0-36.8) SEC Sodium (135-145) mmol/L Potassium (3.3-5.1) mmol/L Chloride (96-108) mmol/L Carbon Dioxide (22-29) mmol/L Anion Gap (12-20) BUN (9-16) mg/dL Creatinine (0.5-1.4) mg/dL Estim Creat Clear Calc Estimated GFR Random Glucose (60-115) mg/dL Lactic Acid (0.5-2.0) mmol/L Calcium (8.4-10.2) mg/dL Total Bilirubin (0.0-1.0) mg/dL AST (5-37) U/L ALT (0-40) U/L Alkaline Phosphatase (39-117) U/L Troponin I High Sens (<3.5-35.0) ng/L B-Natriuretic Peptide (<100) pg/mL Total Protein (6.5-8.0) g/dL Albumin (3.5-5.0) g/dL Lipase (8-78) U/L Urine Color Yellow Urine Appearance Clear Urine pH 5.5 (5.0-9.0) Ur Specific [place] 1.015 (1.005-1.025) Urine Protein Negative (Neg-Trace) mg/dL Urine Glucose (UA) Negative (Negative) mg/dL Urine Ketones Negative (Negative) mg/dL Urine Blood Negative (Negative) Urine Nitrite Negative (Negative) Ur Leukocyte Esterase Negative (Negative) Influenza Type A (PCR) (Negative) Influenza Type B (PCR) (Negative) RSV RNA Qual (PCR) (Negative) SARS-CoV-2 RNA (RT-PCR) (Negative) Independent Interpretation I performed an independent interpretation of an: EKG Interpretation: My interpretation patient's 12 lead EKG is as follows: Sinus tachycardia with a rate of 108, no ST segment elevation, no ST segment depression, Q-wave in lead 3, no significant T-wave abnormalities, no PACs, no PVCs. 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 Radiologist Impression: XR chest 1V IMPRESSION: Subsegmental atelectasis. Marked gaseous distention of bowel beneath the hemidiaphragms. The appearance is similar to prior imaging. Dictated By: Shorty Bazan MD CT angio chest PE protocol IMPRESSION: Imaged by motion artifact. No central pulmonary embolus. Bilateral lower lobe airspace disease, left greater than right. This may represent pneumonia possibly aspiration. VTE: indeterminate Dictated By: Shorty Bazan MD Independent Historian Clinical information obtained from an independent historian. History obtained from or confirmed by: EMS External Record Review External record reviewed: Outpatient record ([facility] notes) Chronic Conditions Patient?s care impacted by: Other (Dementia, Crohn's disease) Critical Care Time Critical Care Time Critical Care Time: Yes Total Critical Care Time: 45 Attestation: Critical Care: The patient was critically ill with a high probability of imminent or life threatening deterioration. I spent greater than 30 minutes of discontinuous time evaluating the patient,delivering critical care at the bedside, discussing and evaluating pertinent data with consultants. Critical care time does not include time spent performing separately billable procedures or teaching. Total time spent performing critical care was 45 minutes. Discharge Plan Discharge Clinical Impression: Pneumonia Qualifiers: Pneumonia type: aspiration pneumonia Laterality: bilateral Lung location: lower lobe of lung Patient Disposition: Admitted As Inpatient Print Language: Albanian
[2023-12-04] MEDS: Albuterol Sulfate 2.5 MG, Albuterol/Iprat 2.5/0.5MG 3 ML 3 ML INHALE (07:07)
[2023-12-04] MEDS: Acetaminophen 325 MG TABLET 975 MG PO (07:18)
[2023-12-04 07:20] LABS: Appearance Urine Clear; Color Urine Yellow; Glucose Urine UA Negative (Negative); Leukocyte Esterase Urine Negative (Negative); Nitrite Urine Negative (Negative); PH 5.5 (5.0-9.0); Specific Gravity - Urine 1.015 (1.005-1.025); Urine Blood Negative (Negative); Urine Ketones Negative (Negative); Urine Protein Negative (Neg-Trace)
[2023-12-04 07:23] LABS: Hematocrit 37.2 % (42.0-52.0); Hemoglobin 11.2 g/dl (14.0-18.0); Mean Corpuscular HGB Conc 30.1 g/dl (31.0-36.0); Mean Corpuscular Hemoglobin 27.3 pg (27.0-33.0); Mean Corpuscular Volume 90.5 fL (80.0-98.0); Mean Platelet Volume 9.3 fL (9.4-12.4); Platelet Count 221 X10*3/uL (160-400); Red Blood Count 4.11 X10*6/uL (4.60-5.80); Red Cell Distribution Width 17.6 % (11.0-16.0); White Blood Count 21.5 X10*3/uL (4.8-10.8)
[2023-12-04 07:28] LABS: Lactic Acid 1.9 mmol/L (0.5-2.0)
[2023-12-04 07:28] LABS: Partial Thromboplastin Time 29.2 SEC (26.0-36.8)
[2023-12-04 07:38] LABS: Alanine Aminotransferase 21 U/L (0-40); Alkaline Phosphatase 53 U/L (39-117); Anion Gap 14 (12-20); Aspartate Amino Transferase 27 U/L (5-37); Bilirubin Total 0.3 mg/dL (0.0-1.0); Blood Urea Nitrogen 20 mg/dL (9-16); Calcium 9.1 mg/dL (8.4-10.2); Carbon Dioxide 27 mmol/L (22-29); Chloride 105 mmol/L (96-108); Creatinine Clr Calc Pharmacy 51.8; Estimated Glomerular Filt Rate 55; Glucose Random 87 mg/dL (60-115); Lipase 23 U/L (8-78); Potassium 4.3 mmol/L (3.3-5.1); Sodium 142 mmol/L (135-145); Total Protein 6.7 g/dL (6.5-8.0)
[2023-12-04 07:39] LABS: B Type Natriuretic Peptide 46 pg/mL (<100)
[2023-12-04 07:42] LABS: Troponin-I High Sensitivity 8.1 ng/L (<3.5-35.0)
[2023-12-04 07:51] LABS: Band Neutrophils Percent 1 % (3-5); Lymphocytes Absolute Manual 1.9 X10*3/uL (1.2-4.9); Lymphocytes Percent Manual 9 % (20-40); Metamyelocytes Absolute 0.4 X10*3/uL; Metamyelocytes Percent 2 %; Monocytes Absolute Manual 0.6 X10*3/uL (0.1-1.2); Monocytes Percent Manual 3 % (2-11); Neutrophils Absolute Manual 18.5 X10*3/uL (2.0-8.3); Neutrophils Percent Manual 85 % (45-73)
[2023-12-04 07:56] LABS: Basophilic Stippling 1+ (0-2) /OIF; Microcytosis 1+ (5-14) /OIF; Polychromasia 1+ (0-2) /OIF; RBC Morphology NOTED
[2023-12-04 07:57] LABS: Hypochromasia 1+ (5-14) /OIF; Platelet Estimate NORMAL (NORMAL)
[2023-12-04 07:58] LABS: Influenza A PCR NEGATIVE (Negative); Influenza B PCR NEGATIVE (Negative); Resp Syncy Virus RNA Qual PCR NEGATIVE (Negative); SARS COV2 PCR INHOUSE NEGATIVE (Negative)
[2023-12-04] MEDS: Ibuprofen 400 MG TABLET PO (08:46)
[2023-12-04] MEDS: Piperacillin Sodium/Tazobactam 4.5 GM in 0.9 % Sodium Chloride 100 ML IV (08:49)
[2023-12-04] MEDS: 0.9 % Sodium Chloride 1,000 ML 999 ML IV (08:50)
--- NOTE | 2023-12-04 08:50 | PC.NURSE ---
patient vital signs retaken, noted to still have fever of 101.2 despite tylenol administration. made aware
--- NOTE | 2023-12-04 08:56 | PC.NURSE ---
patient medicated per MAR, arousable to verbal stimuli able to manage secretions and swallow pills.
[2023-12-04] MEDS: iohexoL 350 MG/ML 100 ML INFUS..BTL IV (10:15)
[2023-12-04 11:12] LABS: Platelet Morphology Comment NORMAL
--- NOTE | 2023-12-04 12:22 | PHA.MEDREC ---
Addendum entered by Taylor Avery RPh 12/04/23 12:42: Patient started on prednisone taper 12/01/23; took 3 days of 40mg. To be started on 30mg on 12/03 x 3 days then 20mg daily on 12/06 Original Note: Pharmacy Consult ? Medication Reconciliation Pharmacy has completed the medication reconciliation. Utilized list from [facility] [place] To confirm med list.
--- NOTE | 2023-12-04 13:20 | P.HPHOSP_ITS ---
History of Present Illness Date of Service: 12/04/23 Attending physician on admission: Prateek [facility] Chief Complaint: Fever, restlessness Pt is a 78-year-old male with a PMH significant for?Crohn's disease, hypothyroidism, osteoarthritis, anxiety, alcohol dependence in remission, depression, and unspecified dementia who presents to the ED from [facility]for evaluation of low-grade fever, hypoxia, and restlessness. Patient has apparently been restless and unable to sleep with increased agitation at facility, where temperature measured 100.2 degrees orally. Here patient is alert and oriented to self only and thus unable to provide accurate HPI. However, patient offers no acute medical complaints at this time. Denies shortness of breath, difficulty breathing. No chest pain/pressure or palpitations. Denies any nausea, vomiting, abdominal pain. Reports last bowel movement was 1-2 days ago. Of note, pt was also reported by SNF staff to have had a new rash to face and neck, but none was appreciated while in the ED. In the ED pt was febrile up to 1015, tachycardic up to 107, tachypneic up to 22, and variable BP as low as 97/51, and initially satting at 85% on RA which improved when placed on OxyMask at 5 L. Labs were significant for leukocytosis of 21.5, otherwise grossly unremarkable and around baseline for patient. Stable H&H of 11.2/37.2. Lactic acid WNL at 1.9. No significant electrolyte abnormalities. Renal and hepatic function around baseline. Troponin WNL at 8.1. CXR showed subsegmental atelectasis and marked gaseous distention of bowel beneath the hemidiaphragm, similar to prior imaging. CTA of chest found no central pulmonary embolus, but showed bilateral lower lobe airspace disease with left greater than right which possibly represents aspiration pneumonia. CT of abdomen and pelvis found small bile dilation possibly related to adhesions in the right mid abdomen and in left lower quadrant, similar to prior study on 10/07/2020. No free fluid in the abdomen or interloop fluid. EKG demonstrated sinus tachycardia of 1 0 without evidence of significant ST elevations or depressions. Pt was treated with DuoNebs, acetaminophen, ibuprofen, IVF, and Zosyn. Pt will be admitted to the hospital for treatment further evaluation of acute hypoxic respiratory failure in the setting of likely aspiration pneumonia with sepsis. Review of Systems 2 Review of Systems: Unable to obtain due to patient's mentation COUNTS INCLUDE 234 BEDS AT THE [facility] Medical History Osteoarthritis Crohn disease Dementia Anxiety MDD (major depressive disorder) Family History Father Myocardial infarction Mother Cancer of kidney Surgical History Hx of colonoscopy History of tonsillectomy Social History Household Members: None [facility] Do you presently have visiting nurse or other home services: No Alcohol intake: former Patient Tobacco Use Status: Former Tobacco user Smoked in Last 30 Days: No Use of substances other than those prescribed or required for medical reasons: No Advance Directives: Yes Advance Directives on File: Yes Advance Directives Date on File: 10/07/20 Do you have a plan to hurt others: No Plan Recently lost weight without trying: Unsure Meds Allergies Allergy/AdvReac Type Severity Reaction Status Date / Time sertraline [Zoloft] Allergy Unknown Unknown Verified 12/04/23 06:55 lactose [Lactose] AdvReac Intermediate DIARRHEA Verified 12/04/23 06:55 Home Medications ?Medication ?Instructions ?Recorded ?Confirmed ?Last Taken ?Type alendronate 70 mg tablet 70 mg PO FR 03/23/23 12/04/23 12/04/23 History cholecalciferol (vitamin D3) 25 25 mcg PO DAILY 03/23/23 12/04/23 Unknown History mcg (1,000 unit) tablet escitalopram oxalate 10 mg tablet 10 mg PO DAILY 03/23/23 12/04/23 Unknown History fludrocortisone 0.1 mg tablet 0.2 mg PO DAILY 03/23/23 12/04/23 Unknown History folic acid 1 mg tablet 1 mg PO DAILY 03/23/23 12/04/23 Unknown History gabapentin 100 mg capsule 100 mg PO BID 03/23/23 12/04/23 Unknown History levothyroxine 112 mcg capsule 112 mcg PO DAILY@0600 03/23/23 12/04/23 Unknown History melatonin 3 mg tablet 6 mg PO BEDTIME Sleep 03/23/23 12/04/23 Unknown History omeprazole 20 mg capsule,delayed 20 mg PO DAILY@0630 03/23/23 12/04/23 Unknown History release simethicone 80 mg chewable tablet 80 mg PO QID 03/23/23 12/04/23 Unknown History (Gas Relief 80 (simethicone)) sulfasalazine 500 mg tablet 0.5 g PO QID 03/23/23 12/04/23 Unknown History acetaminophen 325 mg tablet 650 mg PO Q4H PRN Fever Or Pain 12/04/23 12/04/23 Unknown History (Tylenol) albuterol sulfate 90 mcg/actuation 2 puff inhalation Q4H PRN 12/04/23 12/04/23 Unknown History aerosol inhaler Shortness Of Breath Or Wheezing bisacodyl 10 mg rectal suppository 10 mg NC DAILY PRN Constipation 12/04/23 12/04/23 Unknown History chlorhexidine gluconate 0.12 % 15 ml buccal BID 12/04/23 12/04/23 Unknown History mouthwash clonazepam 0.5 mg tablet 0.5 mg PO DAILY 12/04/23 12/04/23 Unknown History clonazepam 1 mg tablet 1 mg PO DAILY 12/04/23 12/04/23 Unknown History clonazepam 2 mg tablet 2 mg PO BEDTIME 12/04/23 12/04/23 Unknown History loperamide 2 mg capsule 2 mg PO Q3H PRN Loose Stool 12/04/23 12/04/23 Unknown History lorazepam 0.5 mg tablet 0.5 mg PO Q8H PRN Anxiety 12/04/23 12/04/23 Unknown History magnesium hydroxide 400 mg/5 mL 30 ml PO BEDTIME PRN Constipation 12/04/23 12/04/23 Unknown History oral suspension (Milk of Magnesia) mirtazapine 30 mg tablet 30 mg PO BEDTIME 12/04/23 12/04/23 Unknown History multivitamin (Daily-Lili tablet) 1 tab PO DAILY 12/04/23 12/04/23 Unknown History prednisone 20 mg tablet 30 mg PO DAILY 12/04/23 12/04/23 Unknown History Physical Exam 2 Vital Signs and Narrative: Vital Signs: Last Vital Signs Temp 100.0 F 12/04/23 10:16 Pulse 79 12/04/23 12:20 Resp 20 12/04/23 12:20 BP 97/51 L 12/04/23 12:20 Pulse Ox 97 12/04/23 12:20 O2 Del Method Oxymask 12/04/23 12:20 O2 Flow Rate 4 12/04/23 12:20 Oxygen Flow Rate 6 12/04/23 06:54 BMI result Body Mass Index 24.3 Constitutional: Alert, in no acute distress. Mental Status: Oriented to person only, not to place, time, or situation. Eyes: Pupils are equal, round, and reactive to light. Ear, Nose, and Throat: Oropharynx clear, mucous membranes moist. Ears and nose without deformities. Trachea midline. Respiratory: Audibly wheezing. Lungs diffusely rhonchus bilaterally upon auscultation. Cardiovascular: S1, S2 regular. No murmurs, rubs, or gallops. Gastrointestinal: Abdomen soft, non-tender, distended. Normal bowel sounds. Neurologic: Cranial nerves II-XII are grossly intact bilaterally. No focal neurological deficits. Moves all extremities spontaneously. Skin: Warm, dry. Extremities: No edema. Psychiatric: Pleasantly confused. Results Labs 12/05/23 05:19 12/05/23 05:19 Labs: Laboratory Results - last 24 hr 12/04/23 12/04/23 12/04/23 07:05 07:09 07:10 MCV 90.5 MCH 27.3 MCHC 30.1 L RDW 17.6 H Plt Count 221 MPV 9.3 L Immature Gran % (Auto) Cancelled Neut % (Auto) Cancelled Lymph % (Auto) Cancelled Lassen % (Auto) Cancelled Eos % (Auto) Cancelled Baso % (Auto) Cancelled Lymph # (Auto) Cancelled Lassen # (Auto) Cancelled Eos # (Auto) Cancelled Baso # (Auto) Cancelled Abs Immat Gran (auto) Cancelled Absolute Neuts (auto) Cancelled Absolute Nucleated RBC 0.000 Nucleated RBC % (auto) 0.0 Neutrophils % (Manual) 85 H Band Neutrophils % 1 L Lymphocytes % (Manual) 9 L Monocytes % (Manual) 3 Metamyelocytes % 2 Abs Neuts (Manual) 18.5 H Lymphocytes # (Manual) 1.9 Monocytes # (Manual) 0.6 Metamyelocytes # 0.4 Platelet Estimate NORMAL Plt Morphology Comment NORMAL RBC Morphology NOTED Polychromasia 1+ (0-2) Hypochromasia 1+ (5-14) Basophilic Stippling 1+ (0-2) Microcytosis 1+ (5-14) APTT 29.2 Anion Gap 14 Estim Creat Clear Calc 51.8 Estimated GFR 55 Random Glucose 87 Lactic Acid 1.9 Calcium 9.1 D Total Bilirubin 0.3 AST 27 ALT 21 Alkaline Phosphatase 53 Troponin I High Sens 8.1 B-Natriuretic Peptide 46 Total Protein 6.7 Albumin 4.0 Lipase 23 Urine Color Urine Appearance Urine pH Ur Specific Lind[place] Urine Protein Urine Glucose (UA) Urine Ketones Urine Blood Urine Nitrite Ur Leukocyte Esterase Influenza Type A (PCR) NEGATIVE Influenza Type B (PCR) NEGATIVE RSV RNA Qual (PCR) NEGATIVE SARS-CoV-2 RNA (RT-PCR) NEGATIVE 12/04/23 07:14 MCV MCH MCHC RDW Plt Count MPV Immature Gran % (Auto) Neut % (Auto) Lymph % (Auto) Lassen % (Auto) Eos % (Auto) Baso % (Auto) Lymph # (Auto) Lassen # (Auto) Eos # (Auto) Baso # (Auto) Abs Immat Gran (auto) Absolute Neuts (auto) Absolute Nucleated RBC Nucleated RBC % (auto) Neutrophils % (Manual) Band Neutrophils % Lymphocytes % (Manual) Monocytes % (Manual) Metamyelocytes % Abs Neuts (Manual) Lymphocytes # (Manual) Monocytes # (Manual) Metamyelocytes # Platelet Estimate Plt Morphology Comment RBC Morphology Polychromasia Hypochromasia Basophilic Stippling Microcytosis APTT Anion Gap Estim Creat Clear Calc Estimated GFR Random Glucose Lactic Acid Calcium Total Bilirubin AST ALT Alkaline Phosphatase Troponin I High Sens B-Natriuretic Peptide Total Protein Albumin Lipase Urine Color Yellow Urine Appearance Clear Urine pH 5.5 Ur Specific Linden 1.015 Urine Protein Negative Urine Glucose (UA) Negative Urine Ketones Negative Urine Blood Negative Urine Nitrite Negative Ur Leukocyte Esterase Negative Influenza Type A (PCR) Influenza Type B (PCR) RSV RNA Qual (PCR) SARS-CoV-2 RNA (RT-PCR) Imaging Radiologist's Impressions: Impressions Chest X-Ray 12/04/23 07:56 IMPRESSION: Subsegmental atelectasis. Marked gaseous distention of bowel beneath the hemidiaphragms. The appearance is similar to prior imaging. Abdomen/Pelvis CT 12/04/23 10:15 IMPRESSION: Small bowel dilatation possibly related to adhesions in the right mid abdomen and left lower quadrant. The appearance is similar to 10/07/2020. No free fluid in the abdomen or interloop fluid. No pneumatosis. Possible gastric wall thickening. Cholelithiasis. Chest CTA 12/04/23 10:15 IMPRESSION: Imaged by motion artifact. No central pulmonary embolus. Bilateral lower lobe airspace disease, left greater than right. This may represent pneumonia possibly aspiration. VTE: indeterminate Assessment and Plan (1) Acute hypoxic respiratory failure: Status: Acute (2) Aspiration pneumonia: Status: Acute Plan Pt is a 78-year-old male with a PMH significant for?Crohn's disease, hypothyroidism, osteoarthritis, anxiety, alcohol dependence in remission, depression, and unspecified dementia who presents to the ED from [facility]?for evaluation of low-grade fever, hypoxia, and restlessness. Pt will be admitted to the hospital for treatment and further evaluation of acute hypoxic respiratory failure in the setting of likely aspiration pneumonia with sepsis. Acute hypoxic respiratory failure in the setting of aspiration pneumonia with sepsis Patient with restlessness, low-grade fever at [facility], desatting to 85% on RA in the ED CTA of chest showed bilateral lower lobe airspace disease with left greater than right, possibly aspiration pneumonia Patient with known dysphagia: On pureed and nectar thick diet at [facility] Meets sepsis criteria: Fever, tachycardia, tachypnea, and leukocytosis; lactic acid WNL Patient given IVF and started on broad-spectrum antibiotics in the ED Treat with Zosyn 3.75 mg q.6 started 12/04/[address] on maintenance fluids DuoNebs p.r.n. Titrate supplemental O2 >92, wean as tolerated Monitor respiratory status Follow cultures Diet Pt with known hx of dysphagia On pureed diet with nectar thick liquids at [facility] NPO for now pending speech swallow evaluation Criteria: Question of rash on face/neck Report from facility noted patient with new rash on face and neck However, no rash appreciated by either ED or hospitalist clinicians No indication for treatment or further workup at this time Abdominal distention Imaging shows small bowel dilation, similar to previous studies Patient with abdominal distention, at baseline per SNF staff Abdominal exam benign: Patient not complaining of abdominal pain No additional imaging or workup indicated at this time Continue simethicone Crohn's disease Continue sulfasalazine GERD Continue PPI Hypothyroidism Continue levothyroxine Mood disorder Continue home mood stabilizers DNR/DNI, confirmed with [facility] Attending:?Dr. Garza DVT Prophylaxis: Lovenox Pt will require a hospitalization of at least two nights for treatment of?acute hypoxic respiratory failure in the setting of aspiration with sepsis. Patient will require treatment with IV antibiotics, supplemental oxygen, and close monitoring of labs and respiratory status. Quality Stroke Does the patient have a stroke diagnosis?: No VTE Prior VTE?: No VTE Risk Level:: Medical - moderate - high VTE Device Contraindication: Treatment Not Indicated VTE Drug Contraindication: N/A - Med Ordered
--- NOTE | 2023-12-04 13:48 | PC.NURSE ---
Diet at facility puree with nectar thick liquids, per provider switch bolus of NS to maintenance fluids @ 100mls per hour
--- NOTE | 2023-12-04 13:53 | PC.NURSE ---
NPO until seen by speech
[2023-12-04] MEDS: 0.9 % Sodium Chloride 1,000 ML 100 ML IVCONT (13:59)
--- NOTE | 2023-12-04 14:55 | PC.NURSE ---
per speech, patient to have crushed pills.
--- NOTE | 2023-12-04 15:17 | MHC.SP.ADU ---
Referring provider: Prateek Garza MD Reason for Referral: Dysphagia Type of Treatment: 97691 Clinical Swallowing Evaluation Date of Plan of Treatment: 12/04/23 Onset of Symptoms/Illness: 12/04/23 Date Treatment Started: 12/04/23 Medical Diagnosis: Fever Primary Speech Language Diagnosis: R13.12 Oropharyngeal Phase Dysphagia History Pt comes from the [facility] where he has been increasingly agitated and restless with fever up to 102 degrees. Chest XR shows bilateral lower lobe consolidation (L>R). He has a history of Dysphagia and was on a diet of Puree Solids and [place]-Thick Liquids. His history is still coming in, it is unclear if he has had a recent instrumental evaluation. Per his transfer paperwork, he had exceptions made for cheese puffs, and thin liquid Sophia Francesca with a straw. On presentation his skin is pale and clamy. He is resting but opens his eyes to noise in the room. He responds to his name and confirms that he is thirsty. Medical History: Other: PMH includes; Osteoarthritis, Crohn's disease, Dementia, Anxiety, and MDD. Medication List: Recent Hospitalizations: No Respiratory Needs: Room Air Nasal Cannula Patient Orientation: Person Only Social History: Employment Status: Retired Highest level of education obtained: Unknown/Unable to report Current Living Situation: [facility] Assistive Devices in use: Comment: Past Speech Language Therapy: None at this facility, did have modified diet at . Will attempt to obtain records. Other Therapies Seen in Current Calendar Year: None Speech Therapy Other: Swallowing History: Dysphagia Specific: Oralpharyngeal Dysphagia Comments: Pre-eval Risk for Aspiration: Lethargy Medically Fragile Neurological Condition History of Pneumonia Poor PO Intake Reduced Cognition Weak Cough Weak Voice Pre-evaluation Dietary Consistencies: NPO Pre-eval Liquid Intake: NPO Pre-eval Medication Intake: NPO Reported Speech, Language, Cognition difficulties: Understanding Attention Memory Cognition Swallowing Quality of Life: Return to [facility] Patient Stated Goal of Speech-Language Therapy: Safest, least restrictive diet. Assessment Speech Production: Clinical Impression: Observations: Informal Voice Assessment: Voice Loudness: Voice Nasal Resonance: Voice Oral Resonance: Voice Phonatory-based Quality: Voice Pitch: Voice Other Observations: Clinical Impression: Clinicial Observations: Tests of Speech & Lang Adults: Clinical Impression: Observations: Tests of Cognition: Clinical Impression: Observations: Augmentative and Alternative Communication: Observations: Impressions and Recommendations Summary: Recommendation for Speech Therapy: Inpatient Speech Therapy Recommend START DIET of PUREE SOLIDS and NECTAR-THICK LIQUIDS. MEDS CRUSHED with PUREE. Pt will require 1:1 FEEDING at this time. Aspiration precautions include: - Upright for PO - Alert and responsive for PO - Frequent oral care - Spoon only - Alternate bites/sips - Slow pace GLUING MACHINE ADJUSTER will attempt to obtain records from and follow-up on Thursday. Date Range for Service Requested: Admission Time to Reassess: PRN Patient Education: Completed: Yes Patient/Caregiver Education: Patient requires further education on strategies Comments/Barriers to Learning: Group Teacher Clinican/Clinical Fellow: No Supervisory Statement: N/A Speech Language Pathologist: Toni Dc M.A., CCC-GLUING MACHINE ADJUSTER
--- NOTE | 2023-12-04 15:31 | MHC.EDTECH ---
this pct assumed care of patient at 1500 ,vitals taken ,Patient was reposition and boosted up in bed .Patient is a&o ,,No apparent distress noted ,Call bansal within Reach .
[2023-12-04] MEDS: Piperacillin Sodium/Tazobactam 3.375 GM in 0.9 % Sodium Chloride 50 ML IV ×2 (15:32→20:58)
[2023-12-04] MEDS: Simethicone 80 MG TAB.CHEW PO ×2 (16:32→20:58)
[2023-12-04] MEDS: sulfaSALAzine 500 MG TABLET PO ×2 (17:20→20:58)
[2023-12-04] MEDS: Melatonin 3 MG TABLET 6 MG PO (20:58)
[2023-12-04] MEDS: Gabapentin 100 MG CAPSULE PO (20:58)
[2023-12-04] MEDS: Chlorhexidine Gluc Oral Rinse 15 ML MOUTHWASH BUCCAL (20:58)
[2023-12-04] MEDS: clonazePAM 1 MG TABLET 2 MG PO (20:58)
[2023-12-04] MEDS: Mirtazapine 30 MG TABLET PO (20:58)
[2023-12-05] MEDS: 0.9 % Sodium Chloride 1,000 ML 100 ML IVCONT (01:17)
[2023-12-05 02:52] VITALS: BP 146/72; PULSE 95; RESP 18; TEMP 37.1; O2SAT 95
[2023-12-05] MEDS: Piperacillin Sodium/Tazobactam 3.375 GM in 0.9 % Sodium Chloride 50 ML IV ×4 (03:33→20:47)
[2023-12-05] MEDS: Omeprazole 20 MG CAPSULE.DR PO (05:34)
[2023-12-05] MEDS: Levothyroxine Sodium 112 MCG TABLET PO (05:34)
[2023-12-05 05:45] LABS: Hemoglobin 9.6 g/dl (14.0-18.0); Mean Corpuscular Hemoglobin 27.3 pg (27.0-33.0); Mean Corpuscular Volume 90.9 fL (80.0-98.0); Mean Platelet Volume 8.9 fL (9.4-12.4); Platelet Count 173 X10*3/uL (160-400); Red Blood Count 3.52 X10*6/uL (4.60-5.80); Red Cell Distribution Width 18.2 % (11.0-16.0); White Blood Count 14.6 X10*3/uL (4.8-10.8)
[2023-12-05 06:02] LABS: Anion Gap 11 (12-20); Blood Urea Nitrogen 18 mg/dL (9-16); Calcium 7.9 mg/dL (8.4-10.2); Carbon Dioxide 28 mmol/L (22-29); Chloride 109 mmol/L (96-108); Creatinine Clr Calc Pharmacy 51.4; Estimated Glomerular Filt Rate 54; Glucose Random 87 mg/dL (60-115); Potassium 4.1 mmol/L (3.3-5.1); Sodium 144 mmol/L (135-145)
[2023-12-05 07:16] VITALS: BP 120/58; PULSE 75; RESP 18; TEMP 37; O2SAT 96
--- NOTE | 2023-12-05 07:46 | HO.PM.IMPN ---
Subjective Subjective Date of Service: 12/05/23 Interval History: f/u on acute hypoxic respiratory failure due to aspiration pneumonia interval history: overall is doing better, hypoxia is improved, 1/2 gram positive cocci Physical Exam Vital Signs: Vital Signs: Last Vital Signs Temp 98.6 F 12/05/23 07:16 Pulse 75 12/05/23 07:16 Resp 18 12/05/23 07:16 BP 120/58 L 12/05/23 07:16 Pulse Ox 96 12/05/23 07:16 O2 Del Method Nasal Cannula 12/05/23 07:16 O2 Flow Rate 2 12/05/23 07:16 Oxygen Flow Rate 6 12/04/23 06:54 BMI result Body Mass Index 24.3 General: oriented to self only Resp: adilson rhonchi CVS: S1,S2,RRR GI: +BS, NT, marked distention, but supposedly chronic, Skin: No rash Neuro: motor grossly intact Psych: Pleasantly confused Objective Data Active Medications Acetaminophen (Acetaminophen 325 Mg Tablet) 650 mg PO Q6H PRN PRN Reason: Pain, Mild (Pain Scale 1-3), fever or headache Albuterol Sulfate (Albuterol Sulfate 90 Mcg 8 Gm Inhaler) 2 puff INHALE Q4H PRN PRN Reason: Shortness Of Breath Or Wheezing Albuterol/Ipratropium (Albuterol/Iprat 2.5/0.5mg 3 Ml Ampul.Neb) 3 ml INHALE RQ4H WHILE AWAKE PRN PRN Reason: Shortness of Breath/Wheezing Benzonatate (Benzonatate 100 Mg Capsule) 100 mg PO TID PRN PRN Reason: Cough Bisacodyl (Bisacodyl 10 Mg Supp.Rect) 10 mg OK DAILY PRN PRN Reason: Constipation Calcium Carbonate (Calcium Carbonate 750 Mg Tab.Chew) 750 mg PO Q4H PRN PRN Reason: Heartburn Chlorhexidine Gluconate (Chlorhexidine Gluc Oral Rinse 15 Ml Mouthwash) 15 ml BUCCAL BID [facility] Last Admin: 12/04/23 20:58 Dose: 15 ml Documented By: JORDEN Clonazepam (Clonazepam 0.5 Mg Tablet) 0.5 mg PO DAILY [facility] Clonazepam (Clonazepam 1 Mg Tablet) 1 mg PO DAILY [facility] Clonazepam (Clonazepam 1 Mg Tablet) 2 mg PO BEDTIME [facility] Last Admin: 12/04/23 20:58 Dose: 2 mg Documented By: JORDEN Escitalopram Oxalate (Escitalopram Oxalate 10 Mg Tablet) 10 mg PO DAILY [facility] Fludrocortisone Acetate (Fludrocortisone Acetate 0.1 Mg Tablet) 0.2 mg PO DAILY [facility] Folic Acid (Folic Acid 1 Mg Tablet) 1 mg PO DAILY [facility] Gabapentin (Gabapentin 100 Mg Capsule) 100 mg PO BID [facility] Last Admin: 12/04/23 20:58 Dose: 100 mg Documented By: JORDEN Sodium Chloride (Ns) 1,000 mls @ 100 mls/hr IVCONT .Q10H [facility] Last Infusion: 12/05/23 04:04 Dose: 100 mls/hr Documented By: JORDEN Piperacillin Sod/Tazobactam (Sod 3.375 gm/ Sodium Chloride) 50 mls @ 100 mls/hr IV Q6H [facility] Last Infusion: 12/05/23 04:04 Dose: Infused Documented By: JORDEN Levothyroxine Sodium (Levothyroxine Sodium 112 Mcg Tablet) 112 mcg PO DAILY@0600 [facility] Last Admin: 12/05/23 05:34 Dose: 112 mcg Documented By: JOREDN Loperamide HCl (Loperamide Hcl 2 Mg Capsule) 2 mg PO Q3H PRN PRN Reason: Loose Stool Lorazepam (Lorazepam 0.5 Mg Tablet) 0.5 mg PO Q8H PRN PRN Reason: Anxiety Magnesium Hydroxide (Milk Of Magnesia 30 Ml Oral.Susp) 30 ml PO BEDTIME PRN PRN Reason: Constipation Melatonin (Melatonin 3 Mg Tablet) 6 mg PO BEDTIME [facility] Last Admin: 12/04/23 20:58 Dose: 6 mg Documented By: JORDEN Mirtazapine (Mirtazapine 30 Mg Tablet) 30 mg PO BEDTIME [facility] Last Admin: 12/04/23 20:58 Dose: 30 mg Documented By: JORDEN Multivitamins/Vitamin C (Multivitamin Tablet) 1 tab PO DAILY [facility] Omeprazole (Omeprazole 20 Mg Capsule.) 20 mg PO DAILY@0630 [facility] Last Admin: 12/05/23 05:34 Dose: 20 mg Documented By: JORDEN Ondansetron HCl (Ondansetron Hcl 4 Mg/2 Ml Vial) 4 mg IVPUSH Q8H PRN PRN Reason: Nausea and Vomiting Prednisone (Prednisone 10 Mg Tablet) 30 mg PO DAILY [facility] Simethicone (Simethicone 80 Mg Tab.Chew) 80 mg PO QID [facility] Last Admin: 12/04/23 20:58 Dose: 80 mg Documented By: JORDEN Sodium Chloride (0.9 % Sodium Chloride Flush 3 Ml Syringe) 3 ml IVFLUSH QSHIFT [facility] Last Admin: 12/05/23 00:55 Dose: Not Given Documented By: JORDEN Non-Admin Reason: IV Running Sulfasalazine (Sulfasalazine 500 Mg Tablet) 500 mg PO QID [facility] Last Admin: 12/04/23 20:58 Dose: 500 mg Documented By: JORDEN Vitamin D (Cholecalciferol (Vitamin D3) 25 Mcg Tablet) 25 mcg PO DAILY [facility] Labs 12/05/23 05:19 12/05/23 05:19 Labs: Laboratory Results - last 24 hr 12/04/23 12/04/23 12/05/23 07:05 07:10 05:19 MCV 90.5 90.9 MCH 27.3 27.3 MCHC 30.1 L 30.0 L RDW 17.6 H 18.2 H Plt Count 221 173 MPV 9.3 L 8.9 L Immature Gran % (Auto) Cancelled Neut % (Auto) Cancelled Lymph % (Auto) Cancelled Major % (Auto) Cancelled Eos % (Auto) Cancelled Baso % (Auto) Cancelled Lymph # (Auto) Cancelled Major # (Auto) Cancelled Eos # (Auto) Cancelled Baso # (Auto) Cancelled Abs Immat Gran (auto) Cancelled Absolute Neuts (auto) Cancelled Absolute Nucleated RBC 0.000 0.000 Nucleated RBC % (auto) 0.0 0.0 Neutrophils % (Manual) 85 H Band Neutrophils % 1 L Lymphocytes % (Manual) 9 L Monocytes % (Manual) 3 Metamyelocytes % 2 Abs Neuts (Manual) 18.5 H Lymphocytes # (Manual) 1.9 Monocytes # (Manual) 0.6 Metamyelocytes # 0.4 Platelet Estimate NORMAL Plt Morphology Comment NORMAL RBC Morphology NOTED Polychromasia 1+ (0-2) Hypochromasia 1+ (5-14) Basophilic Stippling 1+ (0-2) Microcytosis 1+ (5-14) Anion Gap 11 L Estim Creat Clear Calc 51.4 Estimated GFR 54 Random Glucose 87 Calcium 7.9 L D Influenza Type A (PCR) NEGATIVE Influenza Type B (PCR) NEGATIVE RSV RNA Qual (PCR) NEGATIVE SARS-CoV-2 RNA (RT-PCR) NEGATIVE Microbiology Microbiology Results: Microbiology 12/04/23 07:10 Blood Culture - Preliminary Blood - Venous Prelim: GPC Gram Stain only Assessment and Plan (1) Aspiration pneumonia: Status: Acute (2) Acute hypoxic respiratory failure: Status: Acute Plan Pt is a 78-year-old male with a PMH significant for?Crohn's disease, hypothyroidism, osteoarthritis, anxiety, alcohol dependence in remission, depression, and unspecified dementia who presents to the ED from [facility]?for evaluation of low-grade fever, hypoxia, and restlessness and is admitted for management of sepsis d/t aspiration pneumonia complicated by acute hypoxic respiratory failure Acute hypoxic respiratory failure in the setting of aspiration pneumonia (as evident on CT) with sepsis, improved , O2 sat at 96 % on 2 LNC, WBC down to 14 from 21 -Continue Zosyn started 12/03 for sepsis and PNA, one more day of IV Abx then PO Augmentin -aspiration precaution -dysphagia diet as recommended by speech -follow cultures -O2 goal of 92 to 94 1/2 gram positive Cocci--likely contamination given that patient is improving with no fever, and WBC goiing down, will monitor Dysphagia: [facility] [employer] [employer] recommends PUREE SOLIDS and NECTAR-THICK LIQUIDS. MEDS CRUSHED with PUREE. Pt will require 1:1 FEEDING at this time. Aspiration precautions include: - Upright for PO - Alert and responsive for PO - Frequent oral care - Spoon only - Alternate bites/sips - Slow pace Question of rash on face/neck Report from facility noted patient with new rash on face and neck However, no rash appreciated by either ED or hospitalist clinicians No indication for treatment or further workup at this time Abdominal distention Imaging shows small bowel dilation, similar to previous studies Patient with abdominal distention, at baseline per SNF staff Abdominal exam benign: Patient not complaining of abdominal pain No additional imaging or workup indicated at this time Continue simethicone get surgery input Crohn's disease Continue sulfasalazine GERD Continue PPI Hypothyroidism Continue levothyroxine Mood disorder Continue home mood stabilizers DNR/DNI, confirmed with [facility] DVT Prophylaxis: Lovenox Need for inpatient: management of aspiration PNA, acute hypoxia, needing iV Abx Quality Stroke Does the patient have a stroke diagnosis?: No VTE Prior VTE?: No VTE Risk Level:: Medical - moderate - high VTE Device Contraindication: Treatment Not Indicated VTE Drug Contraindication: N/A - Med Ordered
[2023-12-05] MEDS: Chlorhexidine Gluc Oral Rinse 15 ML MOUTHWASH BUCCAL ×2 (08:14→20:47)
[2023-12-05] MEDS: Cholecalciferol (Vitamin D3) 25 MCG TABLET PO (08:14)
[2023-12-05] MEDS: clonazePAM 0.5 MG TABLET PO (08:14)
[2023-12-05] MEDS: Fludrocortisone Acetate 0.1 MG TABLET 0.2 MG PO (08:14)
[2023-12-05] MEDS: Simethicone 80 MG TAB.CHEW PO ×4 (08:14→20:47)
[2023-12-05] MEDS: sulfaSALAzine 500 MG TABLET PO ×4 (08:14→20:47)
[2023-12-05] MEDS: Multivitamin TABLET 1 TAB PO (08:14)
[2023-12-05] MEDS: Escitalopram Oxalate 10 MG TABLET PO (08:14)
[2023-12-05] MEDS: Gabapentin 100 MG CAPSULE PO ×2 (08:14→20:47)
[2023-12-05] MEDS: Folic Acid 1 MG TABLET PO (08:15)
[2023-12-05] MEDS: clonazePAM 1 MG TABLET PO (08:15)
[2023-12-05] MEDS: predniSONE 10 MG TABLET 30 MG PO (08:15)
[2023-12-05] MEDS: 0.9 % Sodium Chloride Flush 3 ML SYRINGE IVFLUSH ×3 (15:00→20:48)
[2023-12-05 15:02] VITALS: BP 140/63; PULSE 66; RESP 16; TEMP 36.6; O2SAT 94
--- NOTE | 2023-12-05 16:16 | MHC.CM.PN ---
PT IS A LTC RESIDENT OF [facility] CM CALLED PTS HCP/BROTHER, RIGOBERTO COSTA [phone] MEDICARE RIGHTS REVIEWED AND A COPY WILL BE MAILED TO HIM MAILING ADDRESS OBTAINED AND TASK SENT TO REGISTRATION TO UPDATE IN EXPANSE HCP ON FILE PCP: SHERON BECERRA IMM DELIVERED DC: RETURN TO [facility] VIA BLS
--- NOTE | 2023-12-05 18:14 | P.CONGS_ITS ---
History of Present Illness Consult details Consult date: 12/05/23 Requesting physician: Prateek Garza Narrative: Pt is a 78-year-old male with a PMH significant for?Crohn's disease, hypothyroidism, osteoarthritis, anxiety, alcohol dependence in remission, depression, and unspecified dementia who presents to the ED from [facility]for evaluation of low-grade fever, hypoxia, and restlessness. Patient has apparently been restless and unable to sleep with increased agitation at facility, where temperature measured 100.2 degrees orally. Here patient is alert and oriented to self only and thus unable to provide accurate HPI. However, patient offers no acute medical complaints at this time. Denies shortness of breath, difficulty breathing. No chest pain/pressure or palpitations. Denies any nausea, vomiting, abdominal pain. Patient tells me that his abdomen is always distended like this and that he denies having any issues. He has not nauseated he has been passing gas and he has been having bowel movements. At his skilled nursing they say that this is his normal status as well. [facility] Past Medical History Medical History Osteoarthritis Crohn disease Dementia Anxiety MDD (major depressive disorder) Family History Family History Father Myocardial infarction Mother Cancer of kidney Surgical History Surgical History Hx of colonoscopy History of tonsillectomy Social History Social History Household Members: None Household [facility]:: [facility] Housing: Long Term Do you presently have visiting nurse or other home services: No Alcohol intake: former Patient Tobacco Use Status: Former Tobacco user Smoked in Last 30 Days: No Use of substances other than those prescribed or required for medical reasons: No Currently Displaying Signs/Symptoms of Drug Intoxication Withdrawal: No Advance Directives: Yes Advance Directives on File: Yes Advance Directives Date on File: 10/07/20 Do you have a plan to hurt others: No Plan Recently lost weight without trying: Unsure service: Yes Meds Allergies Allergy/AdvReac Type Severity Reaction Status Date / Time sertraline [Zoloft] Allergy Unknown Unknown Verified 12/04/23 06:55 lactose [Lactose] AdvReac Intermediate DIARRHEA Verified 12/04/23 06:55 Active Medications: Current Medications Acetaminophen (Acetaminophen 325 Mg Tablet) 650 mg PO Q6H PRN PRN Reason: Pain, Mild (Pain Scale 1-3), fever or headache Albuterol Sulfate (Albuterol Sulfate 90 Mcg 8 Gm Inhaler) 2 puff INHALE Q4H PRN PRN Reason: Shortness Of Breath Or Wheezing Albuterol/Ipratropium (Albuterol/Iprat 2.5/0.5mg 3 Ml Ampul.Neb) 3 ml INHALE RQ4H WHILE AWAKE PRN PRN Reason: Shortness of Breath/Wheezing Benzonatate (Benzonatate 100 Mg Capsule) 100 mg PO TID PRN PRN Reason: Cough Bisacodyl (Bisacodyl 10 Mg Supp.Rect) 10 mg WA DAILY PRN PRN Reason: Constipation Calcium Carbonate (Calcium Carbonate 750 Mg Tab.Chew) 750 mg PO Q4H PRN PRN Reason: Heartburn Chlorhexidine Gluconate (Chlorhexidine Gluc Oral Rinse 15 Ml Mouthwash) 15 ml BUCCAL BID [facility] Last Admin: 12/05/23 08:14 Dose: 15 ml Clonazepam (Clonazepam 0.5 Mg Tablet) 0.5 mg PO DAILY [facility] Last Admin: 12/05/23 08:14 Dose: 0.5 mg Clonazepam (Clonazepam 1 Mg Tablet) 1 mg PO DAILY [facility] Last Admin: 12/05/23 08:15 Dose: 1 mg Clonazepam (Clonazepam 1 Mg Tablet) 2 mg PO BEDTIME [facility] Last Admin: 12/04/23 20:58 Dose: 2 mg Escitalopram Oxalate (Escitalopram Oxalate 10 Mg Tablet) 10 mg PO DAILY [facility] Last Admin: 12/05/23 08:14 Dose: 10 mg Fludrocortisone Acetate (Fludrocortisone Acetate 0.1 Mg Tablet) 0.2 mg PO DAILY [facility] Last Admin: 12/05/23 08:14 Dose: 0.2 mg Folic Acid (Folic Acid 1 Mg Tablet) 1 mg PO DAILY [facility] Last Admin: 12/05/23 08:15 Dose: 1 mg Gabapentin (Gabapentin 100 Mg Capsule) 100 mg PO BID [facility] Last Admin: 12/05/23 08:14 Dose: 100 mg Piperacillin Sod/Tazobactam (Sod 3.375 gm/ Sodium Chloride) 50 mls @ 100 mls/hr IV Q6H [facility] Last Infusion: 12/05/23 14:59 Dose: Infused Levothyroxine Sodium (Levothyroxine Sodium 112 Mcg Tablet) 112 mcg PO DAILY@0600 [facility] Last Admin: 12/05/23 05:34 Dose: 112 mcg Loperamide HCl (Loperamide Hcl 2 Mg Capsule) 2 mg PO Q3H PRN PRN Reason: Loose Stool Lorazepam (Lorazepam 0.5 Mg Tablet) 0.5 mg PO Q8H PRN PRN Reason: Anxiety Magnesium Hydroxide (Milk Of Magnesia 30 Ml Oral.Susp) 30 ml PO BEDTIME PRN PRN Reason: Constipation Melatonin (Melatonin 3 Mg Tablet) 6 mg PO BEDTIME [facility] Last Admin: 12/04/23 20:58 Dose: 6 mg Mirtazapine (Mirtazapine 30 Mg Tablet) 30 mg PO BEDTIME [facility] Last Admin: 12/04/23 20:58 Dose: 30 mg Multivitamins/Vitamin C (Multivitamin Tablet) 1 tab PO DAILY [facility] Last Admin: 12/05/23 08:14 Dose: 1 tab Omeprazole (Omeprazole 20 Mg Capsule.Dr) 20 mg PO DAILY@0630 [facility] Last Admin: 12/05/23 05:34 Dose: 20 mg Ondansetron HCl (Ondansetron Hcl 4 Mg/2 Ml Vial) 4 mg IVPUSH Q8H PRN PRN Reason: Nausea and Vomiting Prednisone (Prednisone 10 Mg Tablet) 30 mg PO DAILY [facility] Last Admin: 12/05/23 08:15 Dose: 30 mg Simethicone (Simethicone 80 Mg Tab.Chew) 80 mg PO QID [facility] Last Admin: 12/05/23 17:09 Dose: 80 mg Sodium Chloride (0.9 % Sodium Chloride Flush 3 Ml Syringe) 3 ml IVFLUSH QSHIFT [facility] Last Admin: 12/05/23 15:00 Dose: 3 ml Sulfasalazine (Sulfasalazine 500 Mg Tablet) 500 mg PO QID [facility] Last Admin: 12/05/23 17:09 Dose: 500 mg Vitamin D (Cholecalciferol (Vitamin D3) 25 Mcg Tablet) 25 mcg PO DAILY [facility] Last Admin: 12/05/23 08:14 Dose: 25 mcg Home Medications ?Medication ?Instructions ?Recorded ?Confirmed ?Last Taken ?Type alendronate 70 mg tablet 70 mg PO FR 03/23/23 12/04/23 12/04/23 History cholecalciferol (vitamin D3) 25 25 mcg PO DAILY 03/23/23 12/04/23 Unknown History mcg (1,000 unit) tablet escitalopram oxalate 10 mg tablet 10 mg PO DAILY 03/23/23 12/04/23 Unknown History fludrocortisone 0.1 mg tablet 0.2 mg PO DAILY 03/23/23 12/04/23 Unknown History folic acid 1 mg tablet 1 mg PO DAILY 03/23/23 12/04/23 Unknown History gabapentin 100 mg capsule 100 mg PO BID 03/23/23 12/04/23 Unknown History levothyroxine 112 mcg capsule 112 mcg PO DAILY@0600 03/23/23 12/04/23 Unknown History melatonin 3 mg tablet 6 mg PO BEDTIME Sleep 03/23/23 12/04/23 Unknown History omeprazole 20 mg capsule,delayed 20 mg PO DAILY@0630 03/23/23 12/04/23 Unknown History release simethicone 80 mg chewable tablet 80 mg PO QID 03/23/23 12/04/23 Unknown History (Gas Relief 80 (simethicone)) sulfasalazine 500 mg tablet 0.5 g PO QID 03/23/23 12/04/23 Unknown History acetaminophen 325 mg tablet 650 mg PO Q4H PRN Fever Or Pain 12/04/23 12/04/23 Unknown History (Tylenol) albuterol sulfate 90 mcg/actuation 2 puff inhalation Q4H PRN 12/04/23 12/04/23 Unknown History aerosol inhaler Shortness Of Breath Or Wheezing bisacodyl 10 mg rectal suppository 10 mg WA DAILY PRN Constipation 12/04/23 12/04/23 Unknown History chlorhexidine gluconate 0.12 % 15 ml buccal BID 12/04/23 12/04/23 Unknown History mouthwash clonazepam 0.5 mg tablet 0.5 mg PO DAILY 12/04/23 12/04/23 Unknown History clonazepam 1 mg tablet 1 mg PO DAILY 12/04/23 12/04/23 Unknown History clonazepam 2 mg tablet 2 mg PO BEDTIME 12/04/23 12/04/23 Unknown History loperamide 2 mg capsule 2 mg PO Q3H PRN Loose Stool 12/04/23 12/04/23 Unknown History lorazepam 0.5 mg tablet 0.5 mg PO Q8H PRN Anxiety 12/04/23 12/04/23 Unknown History magnesium hydroxide 400 mg/5 mL 30 ml PO BEDTIME PRN Constipation 12/04/23 12/04/23 Unknown History oral suspension (Milk of Magnesia) mirtazapine 30 mg tablet 30 mg PO BEDTIME 12/04/23 12/04/23 Unknown History multivitamin (Daily-Lili tablet) 1 tab PO DAILY 12/04/23 12/04/23 Unknown History prednisone 20 mg tablet 30 mg PO DAILY 12/04/23 12/04/23 Unknown History Physical Exam 2 Vital Signs: Vital Signs: Last Vital Signs Temp 97.9 F 12/05/23 15:02 Pulse 66 12/05/23 15:02 Resp 16 12/05/23 15:02 BP 140/63 H 12/05/23 15:02 Pulse Ox 94 12/05/23 15:02 O2 Del Method Nasal Cannula 12/05/23 15:02 O2 Flow Rate 2 12/05/23 15:02 Oxygen Flow Rate 6 12/04/23 06:54 BMI result Body Mass Index 24.3 Const: General: cooperative, healthy appearing, comfortable and no acute distress GI: Other: His abdomen is soft moderately distended nontender no masses has a combination of some high-pitched and regular bowel sounds and rushing sounds. Results Labs 12/05/23 05:19 12/05/23 05:19 Labs: Abnormal lab results 12/05/23 Range/Units 05:19 WBC 14.6 H (4.8-10.8) X10*3/uL RBC 3.52 L (4.60-5.80) X10*6/uL Hgb 9.6 L (14.0-18.0) g/dl Hct 32.0 L (42.0-52.0) % MCHC 30.0 L (31.0-36.0) g/dl RDW 18.2 H (11.0-16.0) % MPV 8.9 L (9.4-12.4) fL Chloride 109 H (96-108) mmol/L Anion Gap 11 L (12-20) BUN 18 H (9-16) mg/dL Calcium 7.9 L D (8.4-10.2) mg/dL Short CBC 12/05/23 Range/Units 05:19 WBC 14.6 H (4.8-10.8) X10*3/uL Hgb 9.6 L (14.0-18.0) g/dl Hct 32.0 L (42.0-52.0) % Plt Count 173 (160-400) X10*3/uL BMP 12/05/23 05:19 Sodium 144 Potassium 4.1 Chloride 109 H Carbon Dioxide 28 BUN 18 H Creatinine 1.28 Calcium 7.9 L D Urine 12/04/23 Range/Units 07:14 Urine Color Yellow Urine Appearance Clear Urine pH 5.5 (5.0-9.0) Ur Specific [place] 1.015 (1.005-1.025) Urine Protein Negative (Neg-Trace) mg/dL Urine Glucose (UA) Negative (Negative) mg/dL All other labs normal. Imaging Additional studies: [place] [id number] CT Scan Report Signed Patient: Stevie Shleton MR#: [id number] : 1945 Acct:[id number] Age/Sex: 78 / M ADM Date: 12/04/23 Loc: HO.ED Attending Dr: Ordering Physician: Samy Khan MD Date of Service: 12/04/23 Procedure(s): CT abdomen pelvis wo IV con Accession Number(s): [id number] cc: Renato Alonso MD; Samy Khan MD~ EXAMINATION: CT ABDOMEN AND PELVIS WITHOUT CONTRAST CLINICAL INFORMATION: Abdominal distention. COMPARISON: 10/07/2020 TECHNIQUE: Multidetector volumetric imaging was performed from the superior aspect of the liver through the pubic symphysis. Sagittal and coronal reformatted images were obtained on the technologist's workstation. This CT examination was performed using dose optimization techniques as appropriate, variously including the following: *Automated exposure control *Adjustment of mA and/or kV according to patient size (this includes techniques or standardized protocols for targeted exams where dose is matched to indication/reason for exam; i.e. extremities or head) *Use of iterative reconstruction technique DLP: 1068 mGy-cm FINDINGS: LUNG BASES: Please see separately dictated report. LIVER, GALLBLADDER, AND BILIARY TREE: The liver is normal in size and contour. No biliary ductal dilatation is present. Gallstones. PANCREAS: No ductal dilatation. SPLEEN: Not enlarged. ADRENAL GLANDS: No adrenal mass. KIDNEYS AND URETERS: Delayed images demonstrate intact renal function. No hydronephrosis or perinephric fluid collection. BLADDER: Minimal excreted contrast in the bladder. No bladder wall thickening. GASTROINTESTINAL TRACT: Possible gastric wall thickening despite underdistention. Persistent marked dilatation of small bowel loops measuring up to 8 cm. There are zones of transition identified in the right midabdomen and left lower quadrant. There is abnormal angular configuration of the bowel loops. No interloop fluid or pneumatosis. No significant bowel wall thickening. Marked fecal retention in the colon. Appendix is within normal limits. ABDOMINAL WALL: No significant hernia is appreciated. LYMPH NODES: No bulky lymphadenopathy. VASCULAR: Normal caliber abdominal aorta. PELVIC VISCERA: Unremarkable. OSSEOUS STRUCTURES: There are age-indeterminate mild compression fractures from T12 through L3 vertebral bodies. Sclerosis of bilateral femoral heads likely representing avascular necrosis. CT/CT abdomen pelvis wo IV con IMPRESSION: Small bowel dilatation possibly related to adhesions in the right mid abdomen and left lower quadrant. The appearance is similar to 10/07/2020. No free fluid in the abdomen or interloop fluid. No pneumatosis. Possible gastric wall thickening. Cholelithiasis. Assessment and Plan (1) Abdominal distension: Status: Acute Plan 78-year-old male with significant abdominal distention but seems to be his norm. He is admitted with aspiration pneumonia and with his abdominal distention this is concerning. He denies any nausea or vomiting he goes to the bathroom fine and apparently back in his skilled nursing this is how he is. However the concern is if he does have this degree of small-bowel distention chronically this may be contributing to his aspiration. While he does have air in his colon and passing stool and gas consider getting a small bowel follow-through series to determine if there is any holdup or kink edge in his small bowel. He may just have some small bowel inertia and potential treatment with a prokinetic agent maybe helpful as long as it does not interact with his other meds Procedures Date of Service Date of Service: 12/05/23
[2023-12-05 19:23] VITALS: BP 115/56; PULSE 78; RESP 19; TEMP 36.4; O2SAT 92
[2023-12-05] MEDS: Melatonin 3 MG TABLET 6 MG PO (20:47)
[2023-12-05] MEDS: clonazePAM 1 MG TABLET 2 MG PO (20:47)
[2023-12-05] MEDS: Mirtazapine 30 MG TABLET PO (20:47)
[2023-12-06] MEDS: Piperacillin Sodium/Tazobactam 3.375 GM in 0.9 % Sodium Chloride 50 ML IV ×2 (02:44→09:19)
[2023-12-06 03:10] VITALS: BP 125/59; PULSE 55; RESP 20; TEMP 36.2; O2SAT 94
[2023-12-06] MEDS: Levothyroxine Sodium 112 MCG TABLET PO (05:41)
[2023-12-06] MEDS: Omeprazole 20 MG CAPSULE.DR PO (05:41)
[2023-12-06 07:04] VITALS: BP 129/59; PULSE 69; RESP 18; TEMP 36.6; O2SAT 96
[2023-12-06 08:28] LABS: Hematocrit 31.2 % (42.0-52.0); Hemoglobin 9.3 g/dl (14.0-18.0); Mean Corpuscular HGB Conc 29.8 g/dl (31.0-36.0); Mean Corpuscular Hemoglobin 27.4 pg (27.0-33.0); Mean Platelet Volume 9.4 fL (9.4-12.4); Platelet Count 174 X10*3/uL (160-400); Red Blood Count 3.39 X10*6/uL (4.60-5.80); Red Cell Distribution Width 17.7 % (11.0-16.0); White Blood Count 10.7 X10*3/uL (4.8-10.8)
[2023-12-06 08:38] LABS: Anion Gap 12 (12-20); Blood Urea Nitrogen 13 mg/dL (9-16); Calcium 8.2 mg/dL (8.4-10.2); Carbon Dioxide 28 mmol/L (22-29); Chloride 110 mmol/L (96-108); Creatinine Clr Calc Pharmacy 52.2; Estimated Glomerular Filt Rate 55; Glucose Random 93 mg/dL (60-115); Potassium 3.7 mmol/L (3.3-5.1); Sodium 146 mmol/L (135-145)
--- NOTE | 2023-12-06 09:15 | PM.DS ---
DS: Providers Provider Date of Service: 12/07/23 Date of admission: 12/04/23 14:30 Primary care physician: Renato Alonso MD Consults: 12/05/23 10:27 Consult to General Surgery Routine Consulting Provider: [facility] [place] [facility] Reason for consultation: abdominal distention DS: Diagnosis Discharge Diagnosis (1) Abdominal distension: Status: Acute DS: Summary Hospital Course Hospital Course: admission hpi Chief Complaint: Fever, restlessness Pt is a 78-year-old male with a PMH significant for?Crohn's disease, hypothyroidism, osteoarthritis, anxiety, alcohol dependence in remission, depression, and unspecified dementia who presents to the ED from [facility]?for evaluation of low-grade fever, hypoxia, and restlessness. Patient has apparently been restless and unable to sleep with increased agitation at facility, where temperature measured 100.2 degrees orally. Here patient is alert and oriented to self only and thus unable to provide accurate HPI. However, patient offers no acute medical complaints at this time. Denies shortness of breath, difficulty breathing. No chest pain/pressure or palpitations. Denies any nausea, vomiting, abdominal pain. Reports last bowel movement was 1-2 days ago. Of note, pt was also reported by SNF staff to have had a new rash to face and neck, but none was appreciated while in the ED. In the ED pt was febrile up to 1015, tachycardic up to 107, tachypneic up to 22, and variable BP as low as 97/51, and initially satting at 85% on RA which improved when placed on OxyMask at 5 L. Labs were significant for leukocytosis of 21.5, otherwise grossly unremarkable and around baseline for patient. Stable H&H of 11.2/37.2. Lactic acid WNL at 1.9. No significant electrolyte abnormalities. Renal and hepatic function around baseline. Troponin WNL at 8.1. CXR showed subsegmental atelectasis and marked gaseous distention of bowel beneath the hemidiaphragm, similar to prior imaging. CTA of chest found no central pulmonary embolus, but showed bilateral lower lobe airspace disease with left greater than right which possibly represents aspiration pneumonia. CT of abdomen and pelvis found small bile dilation possibly related to adhesions in the right mid abdomen and in left lower quadrant, similar to prior study on 10/07/2020. No free fluid in the abdomen or interloop fluid. EKG demonstrated sinus tachycardia of 1 0 without evidence of significant ST elevations or depressions. Pt was treated with DuoNebs, acetaminophen, ibuprofen, IVF, and Zosyn. Pt will be admitted to the hospital for treatment further evaluation of acute hypoxic respiratory failure in the setting of likely aspiration pneumonia with sepsis. Hospital course: Patient presented with fever restlessness, and noted to be hypoxic on room air. Further work up revealed CXR revealed pneumonia, WBC was 21K, normal lactic acid. He met sepsis criteria. He was initated on Zosyn for aspiration pneumonia and over the course of the next 2 days has continued to improve. WBC has trended down to 14 the next day and 10 today, fever resolved. Breathing is comfortable. He will transitioned to oral Augmentin for a total of 7 days of antibiotics. He was evaluated by [facility] with diet recommendation as below Dysphagia: [facility] recommends PUREE SOLIDS and NECTAR-THICK LIQUIDS. MEDS CRUSHED with PUREE. Pt will require 1:1 FEEDING at this time. Aspiration precautions include: - Upright for PO - Alert and responsive for PO - Frequent oral care - Spoon only - Alternate bites/sips - Slow pace 1/2 gram positive Cocci--likely contamination given that patient is improving with no fever, and WBC goiing down, will monitor Question of rash on face/neck Report from facility noted patient with new rash on face and neck However, no rash appreciated by either ED or hospitalist clinicians No indication for treatment or further workup at this time Abdominal distention Imaging shows small bowel dilation, similar to previous studies Patient with abdominal distention, at baseline per SNF staff Abdominal exam benign: Patient not complaining of abdominal pain and has been having regular richard movment She was seen by Surgery and had small bowel follow through showing dilated small bowel, contrast in colon with prolonged transit time. Abdomen remains softly distended, no peritoneal signs. Distention is likely chronic and has chronic atonic state, contrast in colon therefore SBO unlikely. He is been toleratind diet per [facility] recommendaton. Continue simethicone Crohn's disease Continue sulfasalazine GERD Continue PPI Hypothyroidism Continue levothyroxine Mood disorder Continue home mood stabilizers DNR/DNI, confirmed with [facility] Time Attestation Discharge Coordination Time (in mins): 45 Quality: Safe Use of Opioids Does Pt have an Active Cancer Diagnosis on the Problem List?: No Quality: Stroke Does the patient have a stroke diagnosis?: No Physical Exam Vital Signs: Vital Signs: Selected Entries 12/08/23 08:00 Temperature 98.3 F Pulse Rate 69 Respiratory Rate 16 Blood Pressure 126/64 Pulse Oximetry 95 Oxygen Delivery Me thod Nasal Cannula Oxygen Flow Rate 2 General: oriented to self only Resp: adilson rhonchi CVS: S1,S2,RRR GI: +BS, NT, marked distention, but supposedly chronic, Skin: No rash Neuro: motor grossly intact Psych: Pleasantly confused DS: Data Data Completed and Pending Labs on day of discharge: Laboratory Results - last 24 hr 12/06/23 08:16 WBC 10.7 RBC 3.39 L Hgb 9.3 L Hct 31.2 L MCV 92.0 MCH 27.4 MCHC 29.8 L RDW 17.7 H Plt Count 174 MPV 9.4 Absolute Nucleated RBC 0.000 Nucleated RBC % (auto) 0.0 Sodium 146 H Potassium 3.7 Chloride 110 H Carbon Dioxide 28 Anion Gap 12 BUN 13 Creatinine 1.26 Estim Creat Clear Calc 52.2 Estimated GFR 55 Random Glucose 93 Calcium 8.2 L Preliminary micro results at discharge 12/04/23 07:08 Blood Culture - Preliminary Blood - Venous No growth after 48 hours. 12/04/23 07:10 Blood Culture - Preliminary Blood - Venous Prelim: GPC Gram Stain only Discharge Plan Discharge Anticipated Discharge Date/Time: 12/08/23 12:25 Patient Disposition: Xfer SNF Discharge Diagnosis: Aspiration pneumonia, chronic abdominal distention Referrals: [facility] [Outside] - 1 Week Renato Alonso MD [Primary Care Provider] - 1 Week Discharge Medications: New amoxicillin-pot clavulanate 875-125 mg Tablet 1 tab PO BID Qty: 8 0RF Continued multivitamin [Daily-Lili] Tablet 1 tab PO DAILY acetaminophen [Tylenol] 325 mg Tablet 650 mg PO Q4H PRN (Reason: Fever Or Pain) loperamide 2 mg Capsule 2 mg PO Q3H PRN (Reason: Loose Stool) Rx Instructions: administer after each loose stool until symptoms controlled; do not exceed 8 mg per 24 hrs clonazepam 0.5 mg Tablet 0.5 mg PO DAILY Rx Instructions: Give with 1 mg for a TD of 1.5 mg clonazepam 1 mg Tablet 1 mg PO DAILY Rx Instructions: Give with 0.5 mg for a TD 1.5 mg lorazepam 0.5 mg Tablet 0.5 mg PO Q8H PRN (Reason: Anxiety) magnesium hydroxide [Milk of Magnesia] 400 mg/5 mL Suspension 30 ml PO BEDTIME PRN (Reason: Constipation) Rx Instructions: For no BM in 3 days bisacodyl 10 mg Suppository 10 mg OK DAILY PRN (Reason: Constipation) Rx Instructions: For no BM in 3 days mirtazapine 30 mg Tablet 30 mg PO BEDTIME clonazepam 2 mg Tablet 2 mg PO BEDTIME Rx Instructions: administer 30 minutes before bedtime albuterol sulfate 90 mcg/actuation Hfa Aerosol Inhaler 2 puff INHALATION Q4H PRN (Reason: Shortness Of Breath Or Wheezing) chlorhexidine gluconate 0.12 % Mouthwash 15 ml BUCCAL BID Rx Instructions: If unable to swallow, swab solution on teeth and gums followed by a swab soaked in water. prednisone 20 mg tablet 30 mg PO DAILY Rx Instructions: from 12/03 to 12/05; then 20mg daily alendronate 70 mg tablet 70 mg PO FR Rx Instructions: After breakfast cholecalciferol (vitamin D3) 25 mcg (1,000 unit) tablet 25 mcg PO DAILY gabapentin 100 mg capsule 100 mg PO BID escitalopram oxalate 10 mg tablet 10 mg PO DAILY fludrocortisone 0.1 mg tablet 0.2 mg PO DAILY folic acid 1 mg tablet 1 mg PO DAILY melatonin 3 mg tablet 6 mg PO BEDTIME levothyroxine 112 mcg capsule 112 mcg PO DAILY@0600 omeprazole 20 mg capsule,delayed release(DR/EC) 20 mg PO DAILY@0630 sulfasalazine 500 mg tablet 0.5 g PO QID Rx Instructions: give with food (meal/snack) simethicone [Gas Relief 80 (simethicone)] 80 mg tablet,chewable 80 mg PO QID Discharge Orders: Discharge Order (Routine); Ordered 12/08/23 Ordered By: Prateek Garza Diet: Advance to usual diet Activity on Discharge: As tolerated Stand Alone Forms: Patient Portal Discharge page Print Language: Lebanese Care Plan Goals: Full recovery from aspiration pneumonia and hypoxia Health Concerns: Aspiration pneumonia and aspiration risk, chronic abdominal distention Plan of Treatment: Take Augmentin as recommended and follow up with yor Doctor in a week Drink plenty of water [facility] diet recommendation PUREE SOLIDS and NECTAR-THICK LIQUIDS. MEDS CRUSHED with PUREE. Pt will require 1:1 FEEDING at this time. Aspiration precautions include: - Upright for PO - Alert and responsive for PO - Frequent oral care - Spoon only - Alternate bites/sips - Slow pace Assessment: see above Discharge Date/Time: 12/08/23 19:21
[2023-12-06] MEDS: 0.9 % Sodium Chloride Flush 3 ML SYRINGE IVFLUSH ×2 (09:17→16:04)
[2023-12-06] MEDS: Multivitamin TABLET 1 TAB PO (09:18)
[2023-12-06] MEDS: Gabapentin 100 MG CAPSULE PO ×2 (09:18→19:31)
[2023-12-06] MEDS: Folic Acid 1 MG TABLET PO (09:18)
[2023-12-06] MEDS: clonazePAM 0.5 MG TABLET PO (09:18)
[2023-12-06] MEDS: Fludrocortisone Acetate 0.1 MG TABLET 0.2 MG PO (09:18)
[2023-12-06] MEDS: Simethicone 80 MG TAB.CHEW PO ×4 (09:18→19:31)
[2023-12-06] MEDS: Escitalopram Oxalate 10 MG TABLET PO (09:18)
[2023-12-06] MEDS: Cholecalciferol (Vitamin D3) 25 MCG TABLET PO (09:18)
[2023-12-06] MEDS: Chlorhexidine Gluc Oral Rinse 15 ML MOUTHWASH BUCCAL ×2 (09:18→19:32)
[2023-12-06] MEDS: predniSONE 10 MG TABLET 30 MG PO (09:19)
[2023-12-06] MEDS: sulfaSALAzine 500 MG TABLET PO ×4 (09:19→19:30)
[2023-12-06] MEDS: clonazePAM 1 MG TABLET PO (09:19)
[2023-12-06] MEDS: Amoxicillin/Potassium Clav 875 MG TABLET PO ×2 (09:43→19:42)
[2023-12-06 09:45] VITALS: O2SAT 93
--- NOTE | 2023-12-06 10:52 | PM.PNGS ---
Subjective Subjective Date of Service: 12/06/23 Interval history: pt says feeling ok no issues with abdomen and pain having bowel movements Physical Exam Vital Signs: Vital Signs: Last Vital Signs Temp 97.9 F 12/06/23 07:04 Pulse 69 12/06/23 07:04 Resp 18 12/06/23 07:04 BP 129/59 L 12/06/23 07:04 Pulse Ox 93 12/06/23 09:45 O2 Del Method Room Air 12/06/23 09:45 O2 Flow Rate 2 12/06/23 07:04 Oxygen Flow Rate 6 12/04/23 06:54 BMI result Body Mass Index 24.3 GI: Other: abdomen soft nontender distended has active bowel sounds Objective Data Active Medications Acetaminophen (Acetaminophen 325 Mg Tablet) 650 mg PO Q6H PRN PRN Reason: Pain, Mild (Pain Scale 1-3), fever or headache Albuterol Sulfate (Albuterol Sulfate 90 Mcg 8 Gm Inhaler) 2 puff INHALE Q4H PRN PRN Reason: Shortness Of Breath Or Wheezing Albuterol/Ipratropium (Albuterol/Iprat 2.5/0.5mg 3 Ml Ampul.Neb) 3 ml INHALE RQ4H WHILE AWAKE PRN PRN Reason: Shortness of Breath/Wheezing Amoxicillin/Clavulanate Potassium (Amoxicillin/Potassium Clav 875 Mg Tablet) 875 mg PO BID [facility] Last Admin: 12/06/23 09:43 Dose: 875 mg Documented By: EULOGIO Benzonatate (Benzonatate 100 Mg Capsule) 100 mg PO TID PRN PRN Reason: Cough Bisacodyl (Bisacodyl 10 Mg Supp.Rect) 10 mg [place] DAILY PRN PRN Reason: Constipation Calcium Carbonate (Calcium Carbonate 750 Mg Tab.Chew) 750 mg PO Q4H PRN PRN Reason: Heartburn Chlorhexidine Gluconate (Chlorhexidine Gluc Oral Rinse 15 Ml Mouthwash) 15 ml BUCCAL BID [facility] Last Admin: 12/06/23 09:18 Dose: 15 ml Documented By: EULOGIO Clonazepam (Clonazepam 0.5 Mg Tablet) 0.5 mg PO DAILY [facility] Last Admin: 12/06/23 09:18 Dose: 0.5 mg Documented By: EULOGIO Clonazepam (Clonazepam 1 Mg Tablet) 1 mg PO DAILY [facility] Last Admin: 12/06/23 09:19 Dose: 1 mg Documented By: EULOGIO Clonazepam (Clonazepam 1 Mg Tablet) 2 mg PO BEDTIME [facility] Last Admin: 12/05/23 20:47 Dose: 2 mg Documented By: JORDEN Escitalopram Oxalate (Escitalopram Oxalate 10 Mg Tablet) 10 mg PO DAILY [facility] Last Admin: 12/06/23 09:18 Dose: 10 mg Documented By: EULOGIO Fludrocortisone Acetate (Fludrocortisone Acetate 0.1 Mg Tablet) 0.2 mg PO DAILY [facility] Last Admin: 12/06/23 09:18 Dose: 0.2 mg Documented By: EULOGIO Folic Acid (Folic Acid 1 Mg Tablet) 1 mg PO DAILY [facility] Last Admin: 12/06/23 09:18 Dose: 1 mg Documented By: EULOGIO Gabapentin (Gabapentin 100 Mg Capsule) 100 mg PO BID [facility] Last Admin: 12/06/23 09:18 Dose: 100 mg Documented By: EULOGIO Levothyroxine Sodium (Levothyroxine Sodium 112 Mcg Tablet) 112 mcg PO DAILY@0600 [facility] Last Admin: 12/06/23 05:41 Dose: 112 mcg Documented By: JORDEN Loperamide HCl (Loperamide Hcl 2 Mg Capsule) 2 mg PO Q3H PRN PRN Reason: Loose Stool Lorazepam (Lorazepam 0.5 Mg Tablet) 0.5 mg PO Q8H PRN PRN Reason: Anxiety Magnesium Hydroxide (Milk Of Magnesia 30 Ml Oral.Susp) 30 ml PO BEDTIME PRN PRN Reason: Constipation Melatonin (Melatonin 3 Mg Tablet) 6 mg PO BEDTIME [facility] Last Admin: 12/05/23 20:47 Dose: 6 mg Documented By: JORDEN Mirtazapine (Mirtazapine 30 Mg Tablet) 30 mg PO BEDTIME [facility] Last Admin: 12/05/23 20:47 Dose: 30 mg Documented By: JORDEN Multivitamins/Vitamin C (Multivitamin Tablet) 1 tab PO DAILY [facility] Last Admin: 12/06/23 09:18 Dose: 1 tab Documented By: EULOGIO Omeprazole (Omeprazole 20 Mg Capsule.) 20 mg PO DAILY@0630 [facility] Last Admin: 12/06/23 05:41 Dose: 20 mg Documented By: HO.LYSZ Ondansetron HCl (Ondansetron Hcl 4 Mg/2 Ml Vial) 4 mg IVPUSH Q8H PRN PRN Reason: Nausea and Vomiting Prednisone (Prednisone 10 Mg Tablet) 30 mg PO DAILY [facility] Last Admin: 12/06/23 09:19 Dose: 30 mg Documented By: EULOGIO Simethicone (Simethicone 80 Mg Tab.Chew) 80 mg PO QID [facility] Last Admin: 12/06/23 09:18 Dose: 80 mg Documented By: EULOGIO Sodium Chloride (0.9 % Sodium Chloride Flush 3 Ml Syringe) 3 ml IVFLUSH QSHIFT [facility] Last Admin: 12/06/23 09:17 Dose: 3 ml Documented By: EULOGIO Sulfasalazine (Sulfasalazine 500 Mg Tablet) 500 mg PO QID [facility] Last Admin: 12/06/23 09:19 Dose: 500 mg Documented By: EULOGIO Vitamin D (Cholecalciferol (Vitamin D3) 25 Mcg Tablet) 25 mcg PO DAILY [facility] Last Admin: 12/06/23 09:18 Dose: 25 mcg Documented By: EULOGIO Labs 12/06/23 08:16 12/06/23 08:16 Labs: Laboratory Results - last 24 hr 12/06/23 08:16 MCV 92.0 MCH 27.4 MCHC 29.8 L RDW 17.7 H Plt Count 174 MPV 9.4 Absolute Nucleated RBC 0.000 Nucleated RBC % (auto) 0.0 Anion Gap 12 Estim Creat Clear Calc 52.2 Estimated GFR 55 Random Glucose 93 Calcium 8.2 L Microbiology Microbiology Results: Microbiology 12/04/23 07:10 Blood Culture - Final Blood - Venous Coag negative Staphylococcus 12/04/23 07:08 Blood Culture - Preliminary Blood - Venous No growth after 48 hours. Procedures Date of Service Date of Service: 12/06/23 Progress Note: A&P Assessment and plan (1) Abdominal distension: Status: Acute Assessment and Plan: Despite distension abdominal function is ok - consider SBFT in am with radiology and if ok may consider some prokinetic agent to aid with decreasing distension. Aspiration feeding precautions and keeping pt head of bed elevated would be good Time Spent With Patient Time: Total time managing care of this patient today ____ minutes. Quality Stroke Does the patient have a stroke diagnosis?: No VTE Prior VTE?: No VTE Risk Level:: Medical - moderate - high VTE Device Contraindication: Treatment Not Indicated VTE Drug Contraindication: N/A - Med Ordered
--- NOTE | 2023-12-06 11:57 | HO.PM.IMPN ---
Subjective Subjective Date of Service: 12/06/23 Interval History: f/u on acute hypoxic respiratory failure due to aspiration pneumonia interval history: overall is doing better, hypoxia resolved, 93% on room air. Physical Exam Vital Signs: Vital Signs: Last Vital Signs Temp 97.9 F 12/06/23 07:04 Pulse 69 12/06/23 07:04 Resp 18 12/06/23 07:04 BP 129/59 L 12/06/23 07:04 Pulse Ox 93 12/06/23 09:45 O2 Del Method Room Air 12/06/23 09:45 O2 Flow Rate 2 12/06/23 07:04 Oxygen Flow Rate 6 12/04/23 06:54 BMI result Body Mass Index 24.3 General: oriented to self only Resp: adilson rhonchi CVS: S1,S2,RRR GI: +BS, NT, seems less distended, and no tenderness Skin: No rash Neuro: motor grossly intact Psych: Pleasantly confused Objective Data Active Medications Acetaminophen (Acetaminophen 325 Mg Tablet) 650 mg PO Q6H PRN PRN Reason: Pain, Mild (Pain Scale 1-3), fever or headache Albuterol Sulfate (Albuterol Sulfate 90 Mcg 8 Gm Inhaler) 2 puff INHALE Q4H PRN PRN Reason: Shortness Of Breath Or Wheezing Albuterol/Ipratropium (Albuterol/Iprat 2.5/0.5mg 3 Ml Ampul.Neb) 3 ml INHALE RQ4H WHILE AWAKE PRN PRN Reason: Shortness of Breath/Wheezing Amoxicillin/Clavulanate Potassium (Amoxicillin/Potassium Clav 875 Mg Tablet) 875 mg PO BID [facility] Last Admin: 12/06/23 09:43 Dose: 875 mg Documented By: EULOGIO Benzonatate (Benzonatate 100 Mg Capsule) 100 mg PO TID PRN PRN Reason: Cough Bisacodyl (Bisacodyl 10 Mg Supp.Rect) 10 mg [place] DAILY PRN PRN Reason: Constipation Calcium Carbonate (Calcium Carbonate 750 Mg Tab.Chew) 750 mg PO Q4H PRN PRN Reason: Heartburn Chlorhexidine Gluconate (Chlorhexidine Gluc Oral Rinse 15 Ml Mouthwash) 15 ml BUCCAL BID [facility] Last Admin: 12/06/23 09:18 Dose: 15 ml Documented By: EULOGIO Clonazepam (Clonazepam 0.5 Mg Tablet) 0.5 mg PO DAILY [facility] Last Admin: 12/06/23 09:18 Dose: 0.5 mg Documented By: EULOGIO Clonazepam (Clonazepam 1 Mg Tablet) 1 mg PO DAILY [facility] Last Admin: 12/06/23 09:19 Dose: 1 mg Documented By: EULOGIO Clonazepam (Clonazepam 1 Mg Tablet) 2 mg PO BEDTIME [facility] Last Admin: 12/05/23 20:47 Dose: 2 mg Documented By: JORDEN Escitalopram Oxalate (Escitalopram Oxalate 10 Mg Tablet) 10 mg PO DAILY [facility] Last Admin: 12/06/23 09:18 Dose: 10 mg Documented By: EULOGIO Fludrocortisone Acetate (Fludrocortisone Acetate 0.1 Mg Tablet) 0.2 mg PO DAILY [facility] Last Admin: 12/06/23 09:18 Dose: 0.2 mg Documented By: EULOGIO Folic Acid (Folic Acid 1 Mg Tablet) 1 mg PO DAILY [facility] Last Admin: 12/06/23 09:18 Dose: 1 mg Documented By: EULOGIO Gabapentin (Gabapentin 100 Mg Capsule) 100 mg PO BID [facility] Last Admin: 12/06/23 09:18 Dose: 100 mg Documented By: EULOGIO Levothyroxine Sodium (Levothyroxine Sodium 112 Mcg Tablet) 112 mcg PO DAILY@0600 [facility] Last Admin: 12/06/23 05:41 Dose: 112 mcg Documented By: JORDEN Loperamide HCl (Loperamide Hcl 2 Mg Capsule) 2 mg PO Q3H PRN PRN Reason: Loose Stool Lorazepam (Lorazepam 0.5 Mg Tablet) 0.5 mg PO Q8H PRN PRN Reason: Anxiety Magnesium Hydroxide (Milk Of Magnesia 30 Ml Oral.Susp) 30 ml PO BEDTIME PRN PRN Reason: Constipation Melatonin (Melatonin 3 Mg Tablet) 6 mg PO BEDTIME [facility] Last Admin: 12/05/23 20:47 Dose: 6 mg Documented By: JORDEN Mirtazapine (Mirtazapine 30 Mg Tablet) 30 mg PO BEDTIME [facility] Last Admin: 12/05/23 20:47 Dose: 30 mg Documented By: JORDEN Multivitamins/Vitamin C (Multivitamin Tablet) 1 tab PO DAILY [facility] Last Admin: 12/06/23 09:18 Dose: 1 tab Documented By: EULOGIO Omeprazole (Omeprazole 20 Mg Capsule.Dr) 20 mg PO DAILY@0630 [facility] Last Admin: 12/06/23 05:41 Dose: 20 mg Documented By: JORDEN Ondansetron HCl (Ondansetron Hcl 4 Mg/2 Ml Vial) 4 mg IVPUSH Q8H PRN PRN Reason: Nausea and Vomiting Prednisone (Prednisone 10 Mg Tablet) 30 mg PO DAILY [facility] Last Admin: 12/06/23 09:19 Dose: 30 mg Documented By: EULOGIO Simethicone (Simethicone 80 Mg Tab.Chew) 80 mg PO QID [facility] Last Admin: 12/06/23 09:18 Dose: 80 mg Documented By: EULOGIO Sodium Chloride (0.9 % Sodium Chloride Flush 3 Ml Syringe) 3 ml IVFLUSH QSHIFT [facility] Last Admin: 12/06/23 09:17 Dose: 3 ml Documented By: EULOGIO Sulfasalazine (Sulfasalazine 500 Mg Tablet) 500 mg PO QID [facility] Last Admin: 12/06/23 09:19 Dose: 500 mg Documented By: EULOGIO Vitamin D (Cholecalciferol (Vitamin D3) 25 Mcg Tablet) 25 mcg PO DAILY [facility] Last Admin: 12/06/23 09:18 Dose: 25 mcg Documented By: EULOGIO Labs 12/06/23 08:16 12/06/23 08:16 Labs: Laboratory Results - last 24 hr 12/06/23 08:16 MCV 92.0 MCH 27.4 MCHC 29.8 L RDW 17.7 H Plt Count 174 MPV 9.4 Absolute Nucleated RBC 0.000 Nucleated RBC % (auto) 0.0 Anion Gap 12 Estim Creat Clear Calc 52.2 Estimated GFR 55 Random Glucose 93 Calcium 8.2 L Microbiology Microbiology Results: Microbiology 12/04/23 07:10 Blood Culture - Final Blood - Venous Coag negative Staphylococcus 12/04/23 07:08 Blood Culture - Preliminary Blood - Venous No growth after 48 hours. Assessment and Plan (1) Aspiration pneumonia: Status: Acute (2) Acute hypoxic respiratory failure: Status: Acute Plan Pt is a 78-year-old male with a PMH significant for?Crohn's disease, hypothyroidism, osteoarthritis, anxiety, alcohol dependence in remission, depression, and unspecified dementia who presents to the ED from [facility]?for evaluation of low-grade fever, hypoxia, and restlessness and is admitted for management of sepsis d/t aspiration pneumonia complicated by acute hypoxic respiratory failure Acute hypoxic respiratory failure in the setting of aspiration pneumonia (as evident on CT) with sepsis, improved , O2 sat at 96 % on 2 LNC, WBC down to 14 from 21 -Continue Zosyn started / for sepsis and PNA, one more day of IV Abx then PO Augmentin -aspiration precaution -dysphagia diet as recommended by speech -follow cultures -O2 goal of 92 to 94 1/2 gram positive Cocci--coag neg staph, contamination, no treatment needed Dysphagia: [employer] INTELLIGENCE TECHNICIAN recommends PUREE SOLIDS and NECTAR-THICK LIQUIDS. MEDS CRUSHED with PUREE. Pt will require 1:1 FEEDING at this time. Aspiration precautions include: - Upright for PO - Alert and responsive for PO - Frequent oral care - Spoon only - Alternate bites/sips - Slow pace Question of rash on face/neck Report from facility noted patient with new rash on face and neck However, no rash appreciated by either ED or hospitalist clinicians No indication for treatment or further workup at this time Abdominal distention Imaging shows small bowel dilation, similar to previous studies Patient with abdominal distention, at baseline per SNF staff Abdominal exam benign: Patient not complaining of abdominal pain No additional imaging or workup indicated at this time Continue simethicone get surgery input recommends SBFT, in light of the aspiration Crohn's disease Continue sulfasalazine GERD Continue PPI Hypothyroidism Continue levothyroxine Mood disorder Continue home mood stabilizers DNR/DNI, confirmed with [facility] DVT Prophylaxis: Lovenox Need for inpatient: management of aspiration PNA, acute hypoxia, needing iV Abx Quality Stroke Does the patient have a stroke diagnosis?: No VTE Prior VTE?: No VTE Risk Level:: Medical - moderate - high VTE Device Contraindication: Treatment Not Indicated VTE Drug Contraindication: N/A - Med Ordered
[2023-12-06 15:25] VITALS: BP 133/63; PULSE 71; RESP 16; TEMP 36.8; O2SAT 92
[2023-12-06] MEDS: clonazePAM 1 MG TABLET 2 MG PO (19:29)
[2023-12-06] MEDS: Melatonin 3 MG TABLET 6 MG PO (19:30)
[2023-12-06] MEDS: Mirtazapine 30 MG TABLET PO (19:31)
[2023-12-06 19:35] VITALS: BP 151/66; PULSE 74; RESP 18; TEMP 36.8; O2SAT 93
[2023-12-07] MEDS: 0.9 % Sodium Chloride Flush 3 ML SYRINGE IVFLUSH ×2 (00:26→21:12)
[2023-12-07 03:30] VITALS: BP 160/74; PULSE 56; RESP 16; TEMP 36.2; O2SAT 95
[2023-12-07] MEDS: Omeprazole 20 MG CAPSULE.DR PO (06:40)
[2023-12-07] MEDS: Levothyroxine Sodium 112 MCG TABLET PO (06:40)
[2023-12-07 07:26] VITALS: BP 146/72; PULSE 60; RESP 18; TEMP 36.2; O2SAT 90
--- NOTE | 2023-12-07 07:35 | MHC.SLORD ---
Speech Language Pathology Order Status: Per Dr. Garza, pt is NPO for procedure, thus no PO is given this a.m. Dysphagia treatment/re-evaluation deferred until patient is cleared to resume PO ([employer] TECHNICIAN recc 12/03 puree/nectar thick liquids w/ 1:1 feed).
--- NOTE | 2023-12-07 08:05 | PM.PNGS ---
Subjective Subjective Date of Service: 12/07/23 Interval history: Denies abdominal pain Passing flatus Does not recall BMs Denies nausea or vomiting Physical Exam Vital Signs: Vital Signs: Last Vital Signs Temp 97.2 F 12/07/23 07:26 Pulse 60 12/07/23 07:26 Resp 18 12/07/23 07:26 BP 146/72 H 12/07/23 07:26 Pulse Ox 90 L 12/07/23 07:26 O2 Del Method Nasal Cannula 12/07/23 07:26 O2 Flow Rate 2 12/07/23 07:26 Oxygen Flow Rate 6 12/04/23 06:54 BMI result Body Mass Index 24.3 Const: General: comfortable and no acute distress Resp: Effort & Inspection: normal respiratory effort GI: Other: Protuberant , rounded and distended but soft with no guarding tenderness or rebound Objective Data Active Medications Acetaminophen (Acetaminophen 325 Mg Tablet) 650 mg PO Q6H PRN PRN Reason: Pain, Mild (Pain Scale 1-3), fever or headache Albuterol Sulfate (Albuterol Sulfate 90 Mcg 8 Gm Inhaler) 2 puff INHALE Q4H PRN PRN Reason: Shortness Of Breath Or Wheezing Albuterol/Ipratropium (Albuterol/Iprat 2.5/0.5mg 3 Ml Ampul.Neb) 3 ml INHALE RQ4H WHILE AWAKE PRN PRN Reason: Shortness of Breath/Wheezing Amoxicillin/Clavulanate Potassium (Amoxicillin/Potassium Clav 875 Mg Tablet) 875 mg PO BID [facility] Last Admin: 12/06/23 19:42 Dose: 875 mg Documented By: COLIN Benzonatate (Benzonatate 100 Mg Capsule) 100 mg PO TID PRN PRN Reason: Cough Bisacodyl (Bisacodyl 10 Mg Supp.Rect) 10 mg [place] DAILY PRN PRN Reason: Constipation Calcium Carbonate (Calcium Carbonate 750 Mg Tab.Chew) 750 mg PO Q4H PRN PRN Reason: Heartburn Chlorhexidine Gluconate (Chlorhexidine Gluc Oral Rinse 15 Ml Mouthwash) 15 ml BUCCAL BID [facility] Last Admin: 12/06/23 19:32 Dose: 15 ml Documented By: COLIN Clonazepam (Clonazepam 0.5 Mg Tablet) 0.5 mg PO DAILY [facility] Last Admin: 12/06/23 09:18 Dose: 0.5 mg Documented By: EULOGIO Clonazepam (Clonazepam 1 Mg Tablet) 1 mg PO DAILY [facility] Last Admin: 12/06/23 09:19 Dose: 1 mg Documented By: EULOGIO Clonazepam (Clonazepam 1 Mg Tablet) 2 mg PO BEDTIME [facility] Last Admin: 12/06/23 19:29 Dose: 2 mg Documented By: COLIN Escitalopram Oxalate (Escitalopram Oxalate 10 Mg Tablet) 10 mg PO DAILY [facility] Last Admin: 12/06/23 09:18 Dose: 10 mg Documented By: EULOGIO Fludrocortisone Acetate (Fludrocortisone Acetate 0.1 Mg Tablet) 0.2 mg PO DAILY [facility] Last Admin: 12/06/23 09:18 Dose: 0.2 mg Documented By: EULOGIO Folic Acid (Folic Acid 1 Mg Tablet) 1 mg PO DAILY [facility] Last Admin: 12/06/23 09:18 Dose: 1 mg Documented By: EULOGIO Gabapentin (Gabapentin 100 Mg Capsule) 100 mg PO BID [facility] Last Admin: 12/06/23 19:31 Dose: 100 mg Documented By: COLIN Levothyroxine Sodium (Levothyroxine Sodium 112 Mcg Tablet) 112 mcg PO DAILY@0600 [facility] Last Admin: 12/07/23 06:40 Dose: 112 mcg Documented By: JELANI Loperamide HCl (Loperamide Hcl 2 Mg Capsule) 2 mg PO Q3H PRN PRN Reason: Loose Stool Lorazepam (Lorazepam 0.5 Mg Tablet) 0.5 mg PO Q8H PRN PRN Reason: Anxiety Magnesium Hydroxide (Milk Of Magnesia 30 Ml Oral.Susp) 30 ml PO BEDTIME PRN PRN Reason: Constipation Melatonin (Melatonin 3 Mg Tablet) 6 mg PO BEDTIME [facility] Last Admin: 12/06/23 19:30 Dose: 6 mg Documented By: COLIN Mirtazapine (Mirtazapine 30 Mg Tablet) 30 mg PO BEDTIME [facility] Last Admin: 12/06/23 19:31 Dose: 30 mg Documented By: COLIN Multivitamins/Vitamin C (Multivitamin Tablet) 1 tab PO DAILY [facility] Last Admin: 12/06/23 09:18 Dose: 1 tab Documented By: EULOGIO Omeprazole (Omeprazole 20 Mg Capsule.) 20 mg PO DAILY@0630 [facility] Last Admin: 12/07/23 06:40 Dose: 20 mg Documented By: JELANI Ondansetron HCl (Ondansetron Hcl 4 Mg/2 Ml Vial) 4 mg IVPUSH Q8H PRN PRN Reason: Nausea and Vomiting Prednisone (Prednisone 10 Mg Tablet) 30 mg PO DAILY [facility] Last Admin: 12/06/23 09:19 Dose: 30 mg Documented By: EULOGIO Simethicone (Simethicone 80 Mg Tab.Chew) 80 mg PO QID [facility] Last Admin: 12/06/23 19:31 Dose: 80 mg Documented By: COLIN Sodium Chloride (0.9 % Sodium Chloride Flush 3 Ml Syringe) 3 ml IVFLUSH QSHIFT [facility] Last Admin: 12/07/23 00:26 Dose: 3 ml Documented By: JELANI Sulfasalazine (Sulfasalazine 500 Mg Tablet) 500 mg PO QID [facility] Last Admin: 12/06/23 19:30 Dose: 500 mg Documented By: COLIN Vitamin D (Cholecalciferol (Vitamin D3) 25 Mcg Tablet) 25 mcg PO DAILY [facility] Last Admin: 12/06/23 09:18 Dose: 25 mcg Documented By: EULOGIO Labs 12/06/23 08:16 12/06/23 08:16 Labs: Laboratory Results - last 24 hr 12/06/23 08:16 MCV 92.0 MCH 27.4 MCHC 29.8 L RDW 17.7 H Plt Count 174 MPV 9.4 Absolute Nucleated RBC 0.000 Nucleated RBC % (auto) 0.0 Anion Gap 12 Estim Creat Clear Calc 52.2 Estimated GFR 55 Random Glucose 93 Calcium 8.2 L Microbiology Microbiology Results: Microbiology 12/04/23 07:10 Blood Culture - Final Blood - Venous Coag negative Staphylococcus 12/04/23 07:08 Blood Culture - Preliminary Blood - Venous No growth after 48 hours. Procedures Date of Service Date of Service: 12/07/23 Progress Note: A&P Assessment and plan (1) Abdominal distension: Status: Acute Assessment and Plan: Seems to be chronic Abdomen is soft and benign No obvious tenderness Denies pain and is passing flatus Okay to proceed with small-bowel follow-through today Clinically looks well Time Spent With Patient Time: Total time managing care of this patient today ____ minutes. Quality Stroke Does the patient have a stroke diagnosis?: No VTE Prior VTE?: No VTE Risk Level:: Medical - moderate - high VTE Device Contraindication: Treatment Not Indicated VTE Drug Contraindication: N/A - Med Ordered
--- NOTE | 2023-12-07 08:30 | HO.PM.IMPN ---
Subjective Subjective Date of Service: 12/07/23 Interval History: f/u on acute hypoxic respiratory failure due to aspiration pneumonia interval history: No sob, no abdominal pain, last BM recorded yesterday Physical Exam Vital Signs: Vital Signs: Last Vital Signs Temp 97.2 F 12/07/23 07:26 Pulse 60 12/07/23 07:26 Resp 18 12/07/23 07:26 BP 146/72 H 12/07/23 07:26 Pulse Ox 90 L 12/07/23 07:26 O2 Del Method Nasal Cannula 12/07/23 07:26 O2 Flow Rate 2 12/07/23 07:26 Oxygen Flow Rate 6 12/04/23 06:54 BMI result Body Mass Index 24.3 General: oriented to self only Resp: adilson rhonchi CVS: S1,S2,RRR GI: +BS, NT, again seems very distended this morning, but no tenderness Neuro: motor grossly intact Psych: Pleasantly confused Objective Data Active Medications Acetaminophen (Acetaminophen 325 Mg Tablet) 650 mg PO Q6H PRN PRN Reason: Pain, Mild (Pain Scale 1-3), fever or headache Albuterol Sulfate (Albuterol Sulfate 90 Mcg 8 Gm Inhaler) 2 puff INHALE Q4H PRN PRN Reason: Shortness Of Breath Or Wheezing Albuterol/Ipratropium (Albuterol/Iprat 2.5/0.5mg 3 Ml Ampul.Neb) 3 ml INHALE RQ4H WHILE AWAKE PRN PRN Reason: Shortness of Breath/Wheezing Amoxicillin/Clavulanate Potassium (Amoxicillin/Potassium Clav 875 Mg Tablet) 875 mg PO BID [facility] Last Admin: 12/06/23 19:42 Dose: 875 mg Documented By: COLIN Benzonatate (Benzonatate 100 Mg Capsule) 100 mg PO TID PRN PRN Reason: Cough Bisacodyl (Bisacodyl 10 Mg Supp.Rect) 10 mg [place] DAILY PRN PRN Reason: Constipation Calcium Carbonate (Calcium Carbonate 750 Mg Tab.Chew) 750 mg PO Q4H PRN PRN Reason: Heartburn Chlorhexidine Gluconate (Chlorhexidine Gluc Oral Rinse 15 Ml Mouthwash) 15 ml BUCCAL BID [facility] Last Admin: 12/06/23 19:32 Dose: 15 ml Documented By: COLIN Clonazepam (Clonazepam 0.5 Mg Tablet) 0.5 mg PO DAILY [facility] Last Admin: 12/06/23 09:18 Dose: 0.5 mg Documented By: EULOGIO Clonazepam (Clonazepam 1 Mg Tablet) 1 mg PO DAILY [facility] Last Admin: 12/06/23 09:19 Dose: 1 mg Documented By: EULOGIO Clonazepam (Clonazepam 1 Mg Tablet) 2 mg PO BEDTIME [facility] Last Admin: 12/06/23 19:29 Dose: 2 mg Documented By: COLIN Escitalopram Oxalate (Escitalopram Oxalate 10 Mg Tablet) 10 mg PO DAILY [facility] Last Admin: 12/06/23 09:18 Dose: 10 mg Documented By: EULOGIO Fludrocortisone Acetate (Fludrocortisone Acetate 0.1 Mg Tablet) 0.2 mg PO DAILY [facility] Last Admin: 12/06/23 09:18 Dose: 0.2 mg Documented By: EULOGIO Folic Acid (Folic Acid 1 Mg Tablet) 1 mg PO DAILY [facility] Last Admin: 12/06/23 09:18 Dose: 1 mg Documented By: EULOGIO Gabapentin (Gabapentin 100 Mg Capsule) 100 mg PO BID [facility] Last Admin: 12/06/23 19:31 Dose: 100 mg Documented By: COLIN Levothyroxine Sodium (Levothyroxine Sodium 112 Mcg Tablet) 112 mcg PO DAILY@0600 [facility] Last Admin: 12/07/23 06:40 Dose: 112 mcg Documented By: JELANI Loperamide HCl (Loperamide Hcl 2 Mg Capsule) 2 mg PO Q3H PRN PRN Reason: Loose Stool Lorazepam (Lorazepam 0.5 Mg Tablet) 0.5 mg PO Q8H PRN PRN Reason: Anxiety Magnesium Hydroxide (Milk Of Magnesia 30 Ml Oral.Susp) 30 ml PO BEDTIME PRN PRN Reason: Constipation Melatonin (Melatonin 3 Mg Tablet) 6 mg PO BEDTIME [facility] Last Admin: 12/06/23 19:30 Dose: 6 mg Documented By: COLIN Mirtazapine (Mirtazapine 30 Mg Tablet) 30 mg PO BEDTIME [facility] Last Admin: 12/06/23 19:31 Dose: 30 mg Documented By: COLIN Multivitamins/Vitamin C (Multivitamin Tablet) 1 tab PO DAILY [facility] Last Admin: 12/06/23 09:18 Dose: 1 tab Documented By: EULOGIO Omeprazole (Omeprazole 20 Mg Capsule.) 20 mg PO DAILY@0630 [facility] Last Admin: 12/07/23 06:40 Dose: 20 mg Documented By: JELANI Ondansetron HCl (Ondansetron Hcl 4 Mg/2 Ml Vial) 4 mg IVPUSH Q8H PRN PRN Reason: Nausea and Vomiting Prednisone (Prednisone 10 Mg Tablet) 30 mg PO DAILY [facility] Last Admin: 12/06/23 09:19 Dose: 30 mg Documented By: EULOGIO Simethicone (Simethicone 80 Mg Tab.Chew) 80 mg PO QID [facility] Last Admin: 12/06/23 19:31 Dose: 80 mg Documented By: COLIN Sodium Chloride (0.9 % Sodium Chloride Flush 3 Ml Syringe) 3 ml IVFLUSH QSHIFT [facility] Last Admin: 12/07/23 00:26 Dose: 3 ml Documented By: JELANI Sulfasalazine (Sulfasalazine 500 Mg Tablet) 500 mg PO QID [facility] Last Admin: 12/06/23 19:30 Dose: 500 mg Documented By: COLIN Vitamin D (Cholecalciferol (Vitamin D3) 25 Mcg Tablet) 25 mcg PO DAILY [facility] Last Admin: 12/06/23 09:18 Dose: 25 mcg Documented By: EULOGIO Labs 12/06/23 08:16 12/06/23 08:16 Labs: Laboratory Results - last 24 hr 12/06/23 08:16 Anion Gap 12 Estim Creat Clear Calc 52.2 Estimated GFR 55 Random Glucose 93 Calcium 8.2 L Microbiology Microbiology Results: Microbiology 12/04/23 07:10 Blood Culture - Final Blood - Venous Coag negative Staphylococcus 12/04/23 07:08 Blood Culture - Preliminary Blood - Venous No growth after 48 hours. Assessment and Plan (1) Aspiration pneumonia: Status: Acute (2) Acute hypoxic respiratory failure: Status: Acute Plan Pt is a 78-year-old male with a PMH significant for?Crohn's disease, hypothyroidism, osteoarthritis, anxiety, alcohol dependence in remission, depression, and unspecified dementia who presents to the ED from [facility]for evaluation of low-grade fever, hypoxia, and restlessness and is admitted for management of sepsis d/t aspiration pneumonia complicated by acute hypoxic respiratory failure Acute hypoxic respiratory failure in the setting of aspiration pneumonia (as evident on CT) with sepsis, improved , O2 sat at 96 % on 2 LNC, WBC is now normal -Continue Zosyn started 12/03 for sepsis and PNA, Zosyn changed to Augmentin yesteday, -aspiration precaution -dysphagia diet as recommended by speech -follow cultures -O2 goal of 92 to 94 1/2 gram positive Cocci--coag neg staph, contamination, no treatment needed Dysphagia: REGISTERED APPRAISER recommends PUREE SOLIDS and NECTAR-THICK LIQUIDS. MEDS CRUSHED with PUREE. Pt will require 1:1 FEEDING at this time. Aspiration precautions include: - Upright for PO - Alert and responsive for PO - Frequent oral care - Spoon only - Alternate bites/sips - Slow pace Question of rash on face/neck Report from facility noted patient with new rash on face and neck However, no rash appreciated by either ED or hospitalist clinicians No indication for treatment or further workup at this time Abdominal distention Imaging shows small bowel dilation, similar to previous studies Patient with abdominal distention, at baseline per SNF staff Abdominal exam benign: Patient not complaining of abdominal pain No additional imaging or workup indicated at this time Continue simethicone Surgery recommends SBFT, in light of the aspiration Crohn's disease Continue sulfasalazine GERD Continue PPI Hypothyroidism Continue levothyroxine Mood disorder Continue home mood stabilizers DNR/DNI, confirmed with MOLST DVT Prophylaxis: Lovenox Need for inpatient: management of aspiration PNA, acute hypoxia, needing iV D/ C after SBFT Quality Stroke Does the patient have a stroke diagnosis?: No VTE Prior VTE?: No VTE Risk Level:: Medical - moderate - high VTE Device Contraindication: Treatment Not Indicated VTE Drug Contraindication: N/A - Med Ordered
[2023-12-07] MEDS: Diatrizoate Meglumine, Sodium 120 ML SOLUTION PO ×2 (09:02→10:38)
[2023-12-07 11:42] VITALS: BP 174/77; PULSE 74; RESP 18; TEMP 36.4; O2SAT 91
[2023-12-07] MEDS: Simethicone 80 MG TAB.CHEW PO ×3 (12:44→21:11)
[2023-12-07 15:14] VITALS: BP 137/75; PULSE 81; RESP 18; TEMP 36.6; O2SAT 92
--- NOTE | 2023-12-07 15:52 | PM.EVENT ---
Event Note Date of Service: 12/15/23 Event Note: Seen on afternoon rounds Denies abdominal pain No vomiting or nausea reported by staff abdominal exam remains unchanged, distended, soft but no significant tenderness Scheduled for small bowel series Awaiting results We will follow closely Time Spent With Patient Time: Total time managing care of this patient today ____ minutes.
--- NOTE | 2023-12-07 17:59 | MHC.SL.SWA ---
Speech Pathologist Impression: Oralpharyngeal Dysphagia Risk of Aspiration Due to: Lethargy Medically Fragile Neurological Condition History of Pneumonia Poor PO Intake Reduced Cognition Weak Cough Weak Voice Dysphasia Diet Status: NO CHANGE Liquid Consistency and Strategies for Safe Swallow: Liquid Intake Recommendation: [place] Thick Liquid Intake Strategies: Small Sips No Straws Liquids by Teaspoon Only Solid Food Consistency: Dietary Recommendations: Pureed (NDD1) Oral Medication Intake: Crushed with Puree Please contact the pharmacy regarding appropriate crushable or liquid drug formulations that are available whenever modified delivery is recommended. Compensatory Strategies and Precautions to be Taken for Safe Swallow: Sitting Upright (90 deg) No Straw Liquids from Spoon Small Bites and Sips Alternate Liquids/Solids Rate of Ingestion Change Oral Check Supervision While Eating and Drinking for Safe Swallow: Total Assistance (1:1) Swallowing Recommended Treatments: Compens. Strategy Educat. Recommendation for Speech: Inpatient Speech Therapy Continue [facility] tx at [facility] Comment: Recommend continue w/ PUREE SOLIDS (NDD1) and NECTAR-THICK LIQUIDS. MEDS CRUSHED with PUREE. Pt will require 1:1 FEEDING at this time. Aspiration precautions include: - Upright for PO - Alert and responsive for PO - Frequent oral care - Spoon only - Alternate bites/sips - Slow pace Frequency/Duration: Daily Date Range for Service Req: Admission Timeline to reassess: PRN Commercial Production Editor Clinican/Clinical Fellow: No Supervisory Statement: I have reviewed and agree with the student/clinical fellow's documentation: N/A Speech Language Pathologist: Emma Salazar M.A., CCC-[employer]
[2023-12-07] MEDS: sulfaSALAzine 500 MG TABLET PO ×2 (18:02→21:11)
[2023-12-07 19:30] VITALS: BP 150/79; PULSE 72; RESP 18; TEMP 36.9; O2SAT 93
[2023-12-07] MEDS: Melatonin 3 MG TABLET 6 MG PO (21:11)
[2023-12-07] MEDS: Gabapentin 100 MG CAPSULE PO (21:11)
[2023-12-07] MEDS: Mirtazapine 30 MG TABLET PO (21:11)
[2023-12-07] MEDS: Amoxicillin/Potassium Clav 875 MG TABLET PO (21:11)
[2023-12-07] MEDS: clonazePAM 1 MG TABLET 2 MG PO (21:11)
[2023-12-07] MEDS: Chlorhexidine Gluc Oral Rinse 15 ML MOUTHWASH BUCCAL (21:12)
[2023-12-08 04:00] VITALS: BP 143/71; PULSE 63; RESP 18; TEMP 36.8
[2023-12-08] MEDS: Omeprazole 20 MG CAPSULE.DR PO (05:50)
[2023-12-08] MEDS: Levothyroxine Sodium 112 MCG TABLET PO (05:50)
[2023-12-08 08:00] VITALS: BP 126/64; PULSE 69; RESP 16; TEMP 36.8; O2SAT 95
--- NOTE | 2023-12-08 08:08 | PM.PNGS ---
Subjective Subjective Date of Service: 12/08/23 <Kecia Vinson PA-C - Last Filed: 12/08/23 08:13> 12/08/23 <Abdoulaye Doran MD - Last Filed: 12/08/23 08:44> Interval history: Had a few BMs yesterday per nursing. <Kecia Vinson PA-C - Last Filed: 12/08/23 08:13> Physical Exam Vital Signs: Vital Signs: Last Vital Signs Temp 98.2 F 12/08/23 04:00 Pulse 63 12/08/23 04:00 Resp 18 12/08/23 04:00 BP 143/71 H 12/08/23 04:00 Pulse Ox 93 12/07/23 19:30 O2 Del Method Nasal Cannula 12/07/23 19:30 O2 Flow Rate 2 12/07/23 19:30 Oxygen Flow Rate 6 12/04/23 06:54 BMI result Body Mass Index 24.3 <Kecia Vinson PA-C - Last Filed: 12/08/23 08:13> Const: General: comfortable and no acute distress <Kecia Vinson PA-C - Last Filed: 12/08/23 08:13> Resp: Effort & Inspection: normal respiratory effort <ROSE Tomas Last Filed: 12/08/23 08:13> GI: Inspection: Yes distended <Kecia Vinson PA-C - Last Filed: 12/08/23 08:13> Palpation (GI): Soft to palpation, nontender and no guarding <Kecia Vinson PA-C - Last Filed: 12/08/23 08:13> Percussion: Yes tympanic to percussion <ROSE Tomas Last Filed: 12/08/23 08:13> Skin: General skin exam: no rashes or lesions noted <ROSE Tomas Last Filed: 12/08/23 08:13> Objective Data Active Medications Acetaminophen (Acetaminophen 325 Mg Tablet) 650 mg PO Q6H PRN PRN Reason: Pain, Mild (Pain Scale 1-3), fever or headache Albuterol Sulfate (Albuterol Sulfate 90 Mcg 8 Gm Inhaler) 2 puff INHALE Q4H PRN PRN Reason: Shortness Of Breath Or Wheezing Albuterol/Ipratropium (Albuterol/Iprat 2.5/0.5mg 3 Ml Ampul.Neb) 3 ml INHALE RQ4H WHILE AWAKE PRN PRN Reason: Shortness of Breath/Wheezing Amoxicillin/Clavulanate Potassium (Amoxicillin/Potassium Clav 875 Mg Tablet) 875 mg PO BID [facility] Last Admin: 12/07/23 21:11 Dose: 875 mg Documented By: NELY Benzonatate (Benzonatate 100 Mg Capsule) 100 mg PO TID PRN PRN Reason: Cough Bisacodyl (Bisacodyl 10 Mg Supp.Rect) 10 mg [place] DAILY PRN PRN Reason: Constipation Calcium Carbonate (Calcium Carbonate 750 Mg Tab.Chew) 750 mg PO Q4H PRN PRN Reason: Heartburn Chlorhexidine Gluconate (Chlorhexidine Gluc Oral Rinse 15 Ml Mouthwash) 15 ml BUCCAL BID [facility] Last Admin: 12/07/23 21:12 Dose: 15 ml Documented By: NELY Clonazepam (Clonazepam 0.5 Mg Tablet) 0.5 mg PO DAILY [facility] Last Admin: 12/07/23 10:40 Dose: Not Given Documented By: BRENDEN Non-Admin Reason: NPO Clonazepam (Clonazepam 1 Mg Tablet) 1 mg PO DAILY [facility] Last Admin: 12/07/23 10:40 Dose: Not Given Documented By: BRENDEN Non-Admin Reason: NPO Clonazepam (Clonazepam 1 Mg Tablet) 2 mg PO BEDTIME [facility] Last Admin: 12/07/23 21:11 Dose: 2 mg Documented By: NELY Escitalopram Oxalate (Escitalopram Oxalate 10 Mg Tablet) 10 mg PO DAILY [facility] Last Admin: 12/07/23 10:40 Dose: Not Given Documented By: BRENDEN Non-Admin Reason: NPO Fludrocortisone Acetate (Fludrocortisone Acetate 0.1 Mg Tablet) 0.2 mg PO DAILY [facility] Last Admin: 12/07/23 10:40 Dose: Not Given Documented By: BRENDEN Non-Admin Reason: NPO Folic Acid (Folic Acid 1 Mg Tablet) 1 mg PO DAILY [facility] Last Admin: 12/07/23 10:40 Dose: Not Given Documented By: BRENDEN Non-Admin Reason: NPO Gabapentin (Gabapentin 100 Mg Capsule) 100 mg PO BID [facility] Last Admin: 12/07/23 21:11 Dose: 100 mg Documented By: NELY Levothyroxine Sodium (Levothyroxine Sodium 112 Mcg Tablet) 112 mcg PO DAILY@0600 [facility] Last Admin: 12/08/23 05:50 Dose: 112 mcg Documented By: NELY Loperamide HCl (Loperamide Hcl 2 Mg Capsule) 2 mg PO Q3H PRN PRN Reason: Loose Stool Lorazepam (Lorazepam 0.5 Mg Tablet) 0.5 mg PO Q8H PRN PRN Reason: Anxiety Magnesium Hydroxide (Milk Of Magnesia 30 Ml Oral.Susp) 30 ml PO BEDTIME PRN PRN Reason: Constipation Melatonin (Melatonin 3 Mg Tablet) 6 mg PO BEDTIME [facility] Last Admin: 12/07/23 21:11 Dose: 6 mg Documented By: NELY Mirtazapine (Mirtazapine 30 Mg Tablet) 30 mg PO BEDTIME [facility] Last Admin: 12/07/23 21:11 Dose: 30 mg Documented By: NELY Multivitamins/Vitamin C (Multivitamin Tablet) 1 tab PO DAILY [facility] Last Admin: 12/07/23 10:42 Dose: Not Given Documented By: BRENDEN Non-Admin Reason: NPO Omeprazole (Omeprazole 20 Mg Capsule.Dr) 20 mg PO DAILY@0630 [facility] Last Admin: 12/08/23 05:50 Dose: 20 mg Documented By: NELY Ondansetron HCl (Ondansetron Hcl 4 Mg/2 Ml Vial) 4 mg IVPUSH Q8H PRN PRN Reason: Nausea and Vomiting Prednisone (Prednisone 10 Mg Tablet) 30 mg PO DAILY [facility] Last Admin: 12/07/23 10:42 Dose: Not Given Documented By: BRENDEN Non-Admin Reason: NPO Simethicone (Simethicone 80 Mg Tab.Chew) 80 mg PO QID [facility] Last Admin: 12/07/23 21:11 Dose: 80 mg Documented By: NELY Sodium Chloride (0.9 % Sodium Chloride Flush 3 Ml Syringe) 3 ml IVFLUSH QSHIFT [facility] Last Admin: 12/07/23 21:12 Dose: 3 ml Documented By: NELY Sulfasalazine (Sulfasalazine 500 Mg Tablet) 500 mg PO QID [facility] Last Admin: 12/07/23 21:11 Dose: 500 mg Documented By: NELY Vitamin D (Cholecalciferol (Vitamin D3) 25 Mcg Tablet) 25 mcg PO DAILY [facility] Last Admin: 12/07/23 10:40 Dose: Not Given Documented By: BRENDEN Non-Admin Reason: NPO <Kecia Vinson PA-C - Last Filed: 12/08/23 08:13> Labs CBC & Chem 7: 12/06/23 08:16 12/06/23 08:16 <Kecia Vinson PA-C - Last Filed: 12/08/23 08:13> Procedures Date of Service Date of Service: 12/08/23 <Kecia Vinson PA-C - Last Filed: 12/08/23 08:13> 12/08/23 <Abdoulaye Doran MD - Last Filed: 12/08/23 08:44> Progress Note: A&P Assessment and plan (1) Abdominal distension: Status: Acute <Kecia Vinson PA-C - Last Filed: 12/08/23 08:13> Assessment and Plan: denies abdl pain passing flatus BM reported abd remains soft, benign, nontender SB series shows advancement of oral contrast likely chronic ileus seen and examined independently <Abdoulaye Doran MD - Last Filed: 12/08/23 08:44> Assessment and Plan: SBFT yesterday showed dilated small bowel, contrast in colon with prolonged transit time. Abdomen remains softly distended, no peritoneal signs. Distention is likely chronic and has chronic atonic state, contrast in colon therefore SBO unlikely. Diet as tolerated. <Kecia Vinson PA-C - Last Filed: 12/08/23 08:13> Time Spent With Patient Time: Total time managing care of this patient today ____ minutes. <Kecia Vinson PA-C - Last Filed: 12/08/23 08:13> Quality Stroke Does the patient have a stroke diagnosis?: No <ROSE Tomas Last Filed: 12/08/23 08:13> VTE Prior VTE?: No <Kecia Vinson PA-C - Last Filed: 12/08/23 08:13> VTE Risk Level:: Medical - moderate - high <ROSE Tomas Last Filed: 12/08/23 08:13> VTE Device Contraindication: Treatment Not Indicated <ROSE Tomas Last Filed: 12/08/23 08:13> VTE Drug Contraindication: N/A - Med Ordered <ROSE Tomas Last Filed: 12/08/23 08:13>
[2023-12-08] MEDS: Fludrocortisone Acetate 0.1 MG TABLET 0.2 MG PO (08:37)
[2023-12-08] MEDS: Cholecalciferol (Vitamin D3) 25 MCG TABLET PO (08:37)
[2023-12-08] MEDS: Gabapentin 100 MG CAPSULE PO (08:37)
[2023-12-08] MEDS: sulfaSALAzine 500 MG TABLET PO ×3 (08:37→17:02)
[2023-12-08] MEDS: Folic Acid 1 MG TABLET PO (08:37)
[2023-12-08] MEDS: Multivitamin TABLET 1 TAB PO (08:37)
[2023-12-08] MEDS: clonazePAM 1 MG TABLET PO (08:37)
[2023-12-08] MEDS: Amoxicillin/Potassium Clav 875 MG TABLET PO (08:37)
[2023-12-08] MEDS: Simethicone 80 MG TAB.CHEW PO ×3 (08:37→17:02)
[2023-12-08] MEDS: clonazePAM 0.5 MG TABLET PO (08:37)
[2023-12-08] MEDS: predniSONE 10 MG TABLET 30 MG PO (08:37)
[2023-12-08] MEDS: Escitalopram Oxalate 10 MG TABLET PO (08:37)
[2023-12-08] MEDS: Chlorhexidine Gluc Oral Rinse 15 ML MOUTHWASH BUCCAL (08:38)
[2023-12-08] MEDS: 0.9 % Sodium Chloride Flush 3 ML SYRINGE IVFLUSH ×2 (08:38→17:03)
[2023-12-08 11:14] LABS: Hematocrit 32.2 % (42.0-52.0); Hemoglobin 9.4 g/dl (14.0-18.0); Mean Corpuscular HGB Conc 29.2 g/dl (31.0-36.0); Mean Corpuscular Volume 92.5 fL (80.0-98.0); Mean Platelet Volume 9.1 fL (9.4-12.4); Platelet Count 211 X10*3/uL (160-400); Red Blood Count 3.48 X10*6/uL (4.60-5.80); Red Cell Distribution Width 17.7 % (11.0-16.0); White Blood Count 8.8 X10*3/uL (4.8-10.8)
[2023-12-08 11:28] LABS: Anion Gap 11 (12-20); Blood Urea Nitrogen 14 mg/dL (9-16); Calcium 8.6 mg/dL (8.4-10.2); Carbon Dioxide 25 mmol/L (22-29); Chloride 112 mmol/L (96-108); Estimated Glomerular Filt Rate 58; Glucose Random 199 mg/dL (60-115); Potassium 3.8 mmol/L (3.3-5.1); Sodium 144 mmol/L (135-145)
[2023-12-08 12:34] VITALS: O2SAT 87; O2SAT 94
--- NOTE | 2023-12-08 13:37 | MHC.CM.PN ---
IMM 12/08/23 Patient discharged today. He will return to the [facility]. HCP has been notified of transfer this evening. He agrees with the discharge. Patient will transfer at 6pm via BLS. Contact info for the Nurse 2 Nurse report has been provided to the RN.
--- NOTE | 2023-12-08 14:56 | PC.NURSE ---
Report called to [facility]
[2023-12-08 15:52] VITALS: BP 141/67; PULSE 74; RESP 16; TEMP 37.4; O2SAT 96
== END 2023-12-08 19:21 | disposition skilled nursing facility (03) | DRG 871 ==
LOC: HO.ED 11:29 → HO.EDOVER 14:34 → HO.S3 15:07
PROVIDERS: Admitting Provider Student in an Organized Health Care Education/Training Program; Emergency Provider Emergency Medicine Emergency Medical Services; PCP Internal Medicine Medical Oncology; Visit Provider Internal Medicine
DX: A41.9 Sepsis, unspecified organism (principal); J69.0 Pneumonitis due to inhalation of food and vomit; J96.01 Acute respiratory failure with hypoxia; K50.90 Crohn's disease, unspecified, without complications; R14.0 Abdominal distension (gaseous); F39 Unspecified mood [affective] disorder; R13.10 Dysphagia, unspecified; F10.21 Alcohol dependence, in remission; Z66 Do not resuscitate; E03.9 Hypothyroidism, unspecified; Z20.822 Contact with and (suspected) exposure to COVID-19; Z87.891 Personal history of nicotine dependence; Z79.52 Long term (current) use of systemic steroids; Z79.890 Hormone replacement therapy; Z79.899 Other long term (current) drug therapy
CPT/HCPCS: 0241U; 36415; 71045; 71275; 74176; 74250; 80048; 80053; 81003; 83605; 83690; 83880; 84484; 85007; 85027; 85730; 87040; 87147; 87205; 92526; 93005; 99285; J2543; Q9967

== ENCOUNTER → 2023-12-04 06:57 | Outpatient (BNV) | payer MEDICARE, SELFPAY | PROVIDERS: Emergency Provider Emergency Medicine Emergency Medical Services; PCP Internal Medicine Medical Oncology; Visit Provider Internal Medicine | DX: R00.0 Tachycardia, unspecified (principal) | CPT/HCPCS: 93010 ==

== ENCOUNTER 2023-12-04 14:30 | Outpatient (BNV) | payer MEDICARE, SELFPAY | END 2023-12-07 09:30 | PROVIDERS: Admitting Provider Student in an Organized Health Care Education/Training Program; Emergency Provider Emergency Medicine Emergency Medical Services; PCP Internal Medicine Medical Oncology; Visit Provider Radiology Diagnostic Radiology | DX: K50.90 Crohn's disease, unspecified, without complications (principal) | CPT/HCPCS: 74250 ==

== ENCOUNTER → 2023-12-04 14:30 | Outpatient (BNV) | payer MEDICARE, SELFPAY | PROVIDERS: Admitting Provider Student in an Organized Health Care Education/Training Program; Emergency Provider Emergency Medicine Emergency Medical Services; PCP Internal Medicine Medical Oncology; Visit Provider Surgery | DX: R14.0 Abdominal distension (gaseous) (principal) | CPT/HCPCS: 99222; 99232; 99499 ==

== ENCOUNTER → 2023-12-04 14:30 | Outpatient (BNV) | payer MEDICARE, SELFPAY | PROVIDERS: Admitting Provider Student in an Organized Health Care Education/Training Program; Emergency Provider Emergency Medicine Emergency Medical Services; PCP Internal Medicine Medical Oncology; Visit Provider Student in an Organized Health Care Education/Training Program | DX: J69.0 Pneumonitis due to inhalation of food and vomit (principal); J96.01 Acute respiratory failure with hypoxia | CPT/HCPCS: 99223; 99232; 99239 ==

== ENCOUNTER 2023-12-10 06:28 | Outpatient (REF) | payer MEDICARE, SELFPAY ==
[2023-12-10 10:32] LABS: CDiff Gene PCR NEGATIVE (Negative)
== END 2023-12-10 06:29 | disposition home or self-care (01) ==
LOC: HO.HSH3E 06:28
PROVIDERS: Visit Provider Internal Medicine Endocrinology, Diabetes & Metabolism
DX: R19.7 Diarrhea, unspecified (principal)
CPT/HCPCS: 87493

== ENCOUNTER 2023-12-22 19:55 | Outpatient (REF) | payer MEDICARE, SELFPAY ==
[2023-12-31 15:39] LABS: Calprotectin, Fecal 303 mcg/g
== END 2023-12-22 19:56 | disposition home or self-care (01) ==
LOC: HO.HSH2E 19:55
PROVIDERS: Visit Provider Internal Medicine Endocrinology, Diabetes & Metabolism
DX: K50.90 Crohn's disease, unspecified, without complications (principal); R19.7 Diarrhea, unspecified
CPT/HCPCS: 36415; 83993

== ENCOUNTER 2023-12-23 10:00 | Outpatient (REF) | payer MEDICARE, SELFPAY | END 2023-12-23 10:01 | disposition home or self-care (01) | LOC: HO.HSH2E 10:00 | PROVIDERS: Visit Provider Internal Medicine Endocrinology, Diabetes & Metabolism | DX: Z13.89 Encounter for screening for other disorder (principal) ==

== ENCOUNTER 2023-12-25 10:21 | Outpatient (REF) | payer MEDICARE, SELFPAY ==
[2023-12-25 12:59] LABS: Adenovirus F 40/41 Not Detected (Not Detect.); Astrovirus Not Detected (Not Detect.); Campylobacter Not Detected (Not Detect.); Cryptosporidium Not Detected (Not Detect.); Cyclospora cayetanensis Not Detected (Not Detect.); E. coli EAEC Not Detected (Not Detect.); E. coli EPEC Not Detected (Not Detect.); E. coli ETEC Not Detected (Not Detect.); E. coli STEC Not Detected (Not Detect.); Entamoeba histolytica Not Detected (Not Detect.); Giardia lamblia Not Detected (Not Detect.); Norovirus GI/GII Not Detected (Not Detect.); Plesiomonas shigelloides Not Detected (Not Detect.); Rotavirus A Not Detected (Not Detect.); Salmonella Not Detected (Not Detect.); Sapovirus Not Detected (Not Detect.); Shigella sp./EIEC Not Detected (Not Detect.); Vibrio Not Detected (Not Detect.); Vibrio Cholerae Not Detected (Not Detect.); Yersinia enterocolitica Not Detected (Not Detect.)
== END 2023-12-25 10:22 | disposition home or self-care (01) ==
LOC: HO.HVNA 10:21
PROVIDERS: Visit Provider Internal Medicine Endocrinology, Diabetes & Metabolism
DX: R19.7 Diarrhea, unspecified (principal)
CPT/HCPCS: 87507

== ENCOUNTER 2023-12-30 05:00 | Outpatient (REF) | payer MEDICARE, SELFPAY ==
[2023-12-30 09:22] LABS: CDiff Gene PCR NEGATIVE (Negative)
== END 2023-12-30 05:01 | disposition home or self-care (01) ==
LOC: HO.HSH2E 05:00
PROVIDERS: Visit Provider Internal Medicine Endocrinology, Diabetes & Metabolism
DX: R19.7 Diarrhea, unspecified (principal)
CPT/HCPCS: 87493